=== PATIENT | female | born 1945 | race Caucasian/White ===

== ENCOUNTER 2023-10-19 04:42 | Inpatient (IN) | payer MEDICARE, BC ==
[~2023-10-19] VITALS: Ht 162.6 cm; Wt 88.3 kg
[2023-10-19] VITALS (8 sets, daily range): BP systolic 154–178; BP diastolic 68–89; PULSE 61–74; RESP 14–16; TEMP 98–98.6; O2SAT 94–97
[~2023-10-19 04:42] MED LIST: ASPI-543 PO; CARV25TA55 PO; CLON0.1T PO; CYAN1TAB14 PO; GABA250S7 PO; HYDR25TA88 PO; INSLISPI SC; METF-371 PO; POTA-215 PO; PRAV20TA3 PO; TRAM50TA2 PO
[2023-10-19 07:09] LABS: Urine Bacteria FEW /hpf (None Seen); Urine Blood TRACE /uL (Negative); Urine Clarity Turbid (Clear); Urine Color Colorless (Yellow); Urine Protein, UAD 1+ (Negative); Urine Specific Gravity 1.012 (1.001-1.035); Urine Urobilinogen Normal (Negative); Urine WBC 112 /hpf (0 - 5); Urine pH 5.5 (5.0-9.0)
[2023-10-19 07:38] LABS: Basophils # (auto) 0.1 10 ^3/uL (0-0.2); Basophils % (auto) 0.5 % (0.0-2.0); Eosinophils # (auto) 0.3 10 ^3/uL (0-0.8); Eosinophils % (auto) 2.3 % (0.0-7.0); Hematocrit 38.7 % (36.0-46.0); Hemoglobin 12.9 g/dL (12.2-16.2); Lymphocytes # (auto) 1.3 10 ^3/uL (0.4-5.4); Mean Corpuscular Hemoglobin 30.9 pg (28.0-32.0); Mean Corpuscular Hgb Conc. 33.3 g/dL (32.0-36.0); Mean Corpuscular Volume 92.7 fL (80.0-100.0); Monocytes # (auto) 0.4 10 ^3/uL (0-1.3); Monocytes % (auto) 3.6 % (0.0-12.0); Neutrophils % (auto) 81.6 % (37.0-80.0); Red Blood Cells 4.18 10^6/uL (4.0-5.20); White Blood Cell 11.1 10^3/uL (4.4-10.8)
[2023-10-19 07:39] LABS: Amphetamine Screen, Urine Neg (NEGATIVE); Barbiturate Scree,Urine Neg (NEGATIVE); Benzodiazephine Screen, Urine Neg (NEGATIVE); Cocaine Screen, Urine Neg (NEGATIVE); Opiate Scree,Urine Neg (NEGATIVE); Phencyclidine Screen, Urine Neg (NEGATIVE)
[2023-10-19 07:40] LABS: Cannabinoid Screen, Urine Neg (NEGATIVE)
[2023-10-19] MEDS: SODIUM CHLORIDE 0.9% 500 ML IVB ONE (07:57)
[2023-10-19 07:58] LABS: INR 1.08 (0.9-1.15); Partial Thromboplastin Time 31.6 SEC (24.5-34.5); Prothrombin Time 11.4 sec (9.3-11.8)
[2023-10-19 07:59] LABS: Alanine Aminotransferase 18 U/L (7-40); Albumin 4.1 g/dL (3.2-4.8); Alkaline Phosphatase 122 U/L (46-116); Anion Gap 1 (5-15); Aspartate Aminotransferase 42 U/L (13-40); BUN/Creatinine Ratio 13.7 (10.0-20.0); Blood Urea Nitrogen 36 mg/dL (9-23); Calcium 9.3 mg/dL (8.5-10.1); Carbon Dioxide 36 mmol/L (20-30); Chloride 102 mmol/L (98-107); Glucose 170 mg/dL (74-106); Potassium 3.3 mmol/L (3.5-5.1); Sodium 139 mmol/L (136-145)
[2023-10-19 08:00] LABS: Bilirubin, Total 0.4 mg/dL (0.2-1.0); Total Protein 7.1 g/dL (5.7-8.2)
[2023-10-19] MEDS: SODIUM CHLORIDE 0.9% 1,000 ML IV ONE (08:10)
[2023-10-19] MEDS ORDERED: MORPHINE SULFATE INJ 2 MG/ml SYRG IV PRN (08:45)
[2023-10-19] MEDS ORDERED: NITROGLYCERIN 0.4 MG SL TAB SL PRN (08:45)
[2023-10-19] MEDS ORDERED: DEXTROSE (50%) 50ML SYRG IV PRN (08:45)
[2023-10-19] MEDS ORDERED: ACETAMINOPHEN 325 MG TAB PO PRN (08:45)
[2023-10-19 08:46] LABS: Magnesium 2.8 mg/dL (1.6-2.6)
[2023-10-19] MEDS: POTASSIUM EFFERVESENT TAB 25 MEQ PO ONE (08:57)
[2023-10-19] MEDS: cefTRIAXone 1GM/50ML D5W 50 ML IV ONE (08:57)
[2023-10-19] MEDS: cefTRIAXone 1GM/50ML D5W 50 ML IV SCH (08:58)
[2023-10-19 09:13] LABS: Creatinine, Urine 69.8 mg/dL (30.0-125.0)
[2023-10-19 09:31] LABS: Triglycerides 158 mg/dL (< 150)
[2023-10-19 09:32] LABS: LDL Cholesterol 76 mg/dL (< 100)
[2023-10-19 09:33] LABS: Cholesterol 162 mg/dL (< 200); HDL Cholesterol 53 mg/dL (40-59)
[2023-10-19] MEDS ORDERED: ENOXAPARIN SOD 40 MG/0.4 ML SYRINGE SC SCH (10:00)
[2023-10-19] MEDS: GABAPENTIN 300 MG CAP PO SCH (10:26)
[2023-10-19] MEDS: CARVEDILOL 12.5 MG TAB PO SCH (10:26)
[2023-10-19] MEDS: PRAVASTATIN SODIUM 20 MG TAB PO SCH (10:27)
[2023-10-19] MEDS: POTASSIUM CHL 10 Meq TABLET PO SCH (10:27)
[2023-10-19] MEDS: ASPirin-EC 81 mg tab PO SCH (10:27)
[2023-10-19] MEDS: CYANOCOBALAMIN 500 MCG TAB PO SCH (10:27)
[2023-10-19] MEDS: ENOXAPARIN SOD 30 MG/0.3 ML SYRINGE SC SCH (10:28)
[2023-10-19] MEDS: InsuLIN REG 1unit/0.01ml Soln (100units/ml) SC SCH (11:30)
[2023-10-19] MEDS: ACCU-CHEK COMFORT CURVE STRIP VI SCH (12:24)
[2023-10-19] MEDS: cloNIDine HCL 0.1 MG TAB PO SCH (14:11)
[2023-10-19] MEDS: hydrALAZINE HCL 25 MG TAB PO SCH (14:11)
[2023-10-19] MEDS ORDERED: ALBUTEROL SULF 2.5 MG/0.5ML(0.5%) NEB SOLN NEB PRN (15:30)
[2023-10-19] MEDS ORDERED: LORazepam 2MG/ML-1ML VIAL IV PRN (20:15)
[2023-10-19 20:40] LABS: Free T4 (Free Thyroxine) 0.96 ng/dL (0.89-1.76)
[2023-10-19] MEDS: ACETAMINOPHEN 325 MG TAB PO PRN (22:22)
[2023-10-19] MEDS: traMADol HCL 50 MG TAB PO PRN (23:53)
[2023-10-20] VITALS (10 sets, daily range): BP systolic 148–189; BP diastolic 64–90; PULSE 65–82; RESP 16–18; TEMP 97.7–98.5; O2SAT 94–98
[2023-10-20] MEDS ORDERED: ROPI0.5T26 PO (02:13)
[2023-10-20] MEDS ORDERED: DOCUSATE SOD 100 MG CAP PO PRN (05:30)
[2023-10-20] MEDS: DOCUSATE SOD 100 MG CAP PO ONE (05:52)
[2023-10-20 07:12] LABS: Basophils # (auto) 0.1 10 ^3/uL (0-0.2); Basophils % (auto) 0.6 % (0.0-2.0); Eosinophils # (auto) 0.4 10 ^3/uL (0-0.8); Eosinophils % (auto) 4.8 % (0.0-7.0); Hematocrit 40.1 % (36.0-46.0); Hemoglobin 13.4 g/dL (12.2-16.2); Lymphocytes % (auto) 12.4 % (10.0-50.0); Mean Corpuscular Hemoglobin 30.5 pg (28.0-32.0); Mean Corpuscular Hgb Conc. 33.3 g/dL (32.0-36.0); Mean Corpuscular Volume 91.4 fL (80.0-100.0); Monocytes # (auto) 0.5 10 ^3/uL (0-1.3); Monocytes % (auto) 6.7 % (0.0-12.0); Neutrophils # (auto) 6.2 10 ^3/uL (1.6-8.6); Neutrophils % (auto) 75.5 % (37.0-80.0); Red Blood Cells 4.39 10^6/uL (4.0-5.20); Red Cell Distribution Width 12.9 % (11.8-14.3); White Blood Cell 8.2 10^3/uL (4.4-10.8)
[2023-10-20] MEDS: FUROSEMIDE 20 MG/2 ML VIAL IV SCH (09:18)
[2023-10-20] MEDS ORDERED: UMEC1AER IN (12:54)
[2023-10-20] MEDS ORDERED: NIFE1TAB31 PO (12:54)
[2023-10-20] MEDS ORDERED: MAGN400T40 OR (12:54)
[2023-10-20] MEDS ORDERED: APIX2.5T PO (12:54)
[2023-10-20] MEDS ORDERED: METF-929 PO (12:54)
[2023-10-20] MEDS ORDERED: AZIL40TA3 PO (12:54)
[2023-10-20] MEDS ORDERED: ESCI1TAB37 PO (12:54)
[2023-10-20] MEDS ORDERED: GABA800T97 PO (12:54)
[2023-10-20] MEDS ORDERED: EMPA1TAB PO (12:54)
[2023-10-20] MEDS: cloNIDine HCL 0.1 MG TAB PO PRN (16:31)
[2023-10-20 17:00] LABS: COVID19 ANTIGEN SOFIA FIA NEGATIVE (NEGATIVE)
[2023-10-20 19:24] LABS: Rapid Influenza A Negative (Negative); Rapid Influenza B Negative (Negative)
[2023-10-21] VITALS (8 sets, daily range): BP systolic 113–165; BP diastolic 49–83; PULSE 62–68; RESP 18–19; TEMP 97.9–98.4; O2SAT 96–98
[2023-10-21 06:35] LABS: Alanine Aminotransferase 13 U/L (7-40); Alkaline Phosphatase 97 U/L (46-116); Anion Gap 7 (5-15); BUN/Creatinine Ratio 17.9 (10.0-20.0); Blood Urea Nitrogen 27 mg/dL (9-23); Calcium 9.7 mg/dL (8.7-10.4); Carbon Dioxide 33 mmol/L (20-30); Chloride 96 mmol/L (98-107); Glucose 153 mg/dL (74-106); Potassium 2.6 mmol/L (3.5-5.1); Sodium 136 mmol/L (136-145)
[2023-10-21 06:36] LABS: Albumin 3.7 g/dL (3.2-4.8); Aspartate Aminotransferase 23 U/L (13-40); Bilirubin, Total 0.6 mg/dL (0.2-1.0); Total Protein 6.9 g/dL (5.7-8.2)
[2023-10-21] MEDS: HEPARIN SODIUM (PORCINE) 5000 UNITS/ML 1ML VIAL SC SCH (09:13)
[2023-10-21] MEDS: NIFEdipine ER 30 MG TAB PO SCH (09:24)
[2023-10-21] MEDS ORDERED: POTASSIUM CHL 20MEQ/100ML 100 ML IV SCH (10:30)
[2023-10-21] MEDS ORDERED: POTASSIUM CHL 20 Meq TABLET PO ONE (12:00)
[2023-10-21] MEDS: ONDANSETRON HCL 4 MG/2 ML VIAL IV PRN (12:47)
[2023-10-21] MEDS: POTASSIUM EFFERVESENT TAB 25 MEQ PO SCH ×2 (13:07→18:15)
[2023-10-21] MEDS: hydrALAZINE HCL 25 MG TAB PO SCH (18:21)
[2023-10-22 01:00] VITALS: BP 130/62; PULSE 69; RESP 19; TEMP 95; O2SAT 97
[2023-10-22 04:57] VITALS: BP 128/65; PULSE 60; RESP 18; TEMP 97.8; O2SAT 97
[2023-10-22 06:23] LABS: Basophils # (auto) 0.1 10 ^3/uL (0-0.2); Basophils % (auto) 0.7 % (0.0-2.0); Eosinophils # (auto) 0.4 10 ^3/uL (0-0.8); Eosinophils % (auto) 4.3 % (0.0-7.0); Hematocrit 42.1 % (36.0-46.0); Hemoglobin 14.1 g/dL (12.2-16.2); Lymphocytes # (auto) 1.6 10 ^3/uL (0.4-5.4); Mean Corpuscular Hemoglobin 30.6 pg (28.0-32.0); Mean Corpuscular Hgb Conc. 33.5 g/dL (32.0-36.0); Mean Corpuscular Volume 91.3 fL (80.0-100.0); Monocytes # (auto) 0.8 10 ^3/uL (0-1.3); Monocytes % (auto) 8.6 % (0.0-12.0); Neutrophils # (auto) 6.3 10 ^3/uL (1.6-8.6); Neutrophils % (auto) 69.4 % (37.0-80.0); Red Blood Cells 4.61 10^6/uL (4.0-5.20); White Blood Cell 9.1 10^3/uL (4.4-10.8)
[2023-10-22 06:46] LABS: Alanine Aminotransferase 14 U/L (7-40); Albumin 3.6 g/dL (3.2-4.8); Alkaline Phosphatase 89 U/L (46-116); Anion Gap 1 (5-15); Aspartate Aminotransferase 26 U/L (13-40); Blood Urea Nitrogen 31 mg/dL (9-23); Calcium 9.3 mg/dL (8.7-10.4); Carbon Dioxide 36 mmol/L (20-30); Chloride 96 mmol/L (98-107); Glucose 187 mg/dL (74-106); Potassium 3.4 mmol/L (3.5-5.1); Sodium 133 mmol/L (136-145)
[2023-10-22 06:47] LABS: Bilirubin, Total 0.4 mg/dL (0.2-1.0); Total Protein 6.8 g/dL (5.7-8.2)
[2023-10-22 08:00] VITALS: PULSE 59; O2SAT 97
[2023-10-22] MEDS ORDERED: CIPR-173 PO (09:00)
[2023-10-22 09:02] VITALS: BP 115/51; PULSE 64; RESP 17; TEMP 98; O2SAT 97
[2023-10-22 09:37] LABS: Hepatitis B Surface Antigen Negative (Negative)
[2023-10-22 09:57] VITALS: BP 115/51; PULSE 64; RESP 17; TEMP 98; O2SAT 97
[2023-10-22 09:59] LABS: Hepatitis C Antibody Negative (Negative)
[2023-10-22 11:02] LABS: Folate (Folic Acid) 39.24 ng/mL (>5.38)
[2023-10-22 13:00] VITALS: BP 96/42; PULSE 60; RESP 17; TEMP 98
== END 2023-10-22 16:05 | disposition home or self-care (01) | DRG 871 ==
LOC: EDSEX 04:42 → EDUNIT# 04:42 → ER 04:42 → EDBD 04:42 → OVERFLOW 08:44 → TELE-WESTW 08:44
PROVIDERS: ADMIT Nurse Practitioner Family; ATTEND Family Medicine
DX: A41.9 Sepsis, unspecified organism (principal); G93.41 Metabolic encephalopathy; N17.0 Acute kidney failure with tubular necrosis; I50.43 Acute on chronic combined systolic (congestive) and diastolic (congestive) heart failure; N39.0 Urinary tract infection, site not specified; I13.0 Hypertensive heart and chronic kidney disease with heart failure and stage 1 through stage 4 chronic kidney disease, or unspecified chronic kidney disease; J44.1 Chronic obstructive pulmonary disease with (acute) exacerbation; N18.4 Chronic kidney disease, stage 4 (severe); E87.3 Alkalosis; J96.10 Chronic respiratory failure, unspecified whether with hypoxia or hypercapnia; E11.22 Type 2 diabetes mellitus with diabetic chronic kidney disease; Z20.822 Contact with and (suspected) exposure to COVID-19; E66.01 Morbid (severe) obesity due to excess calories; E86.0 Dehydration; E87.6 Hypokalemia; I16.0 Hypertensive urgency; I27.20 Pulmonary hypertension, unspecified; I48.0 Paroxysmal atrial fibrillation; I25.10 Atherosclerotic heart disease of native coronary artery without angina pectoris; F32.A Depression, unspecified; F17.200 Nicotine dependence, unspecified, uncomplicated; R27.8 Other lack of coordination; G25.3 Myoclonus; E78.5 Hyperlipidemia, unspecified; Z90.710 Acquired absence of both cervix and uterus; Z95.5 Presence of coronary angioplasty implant and graft; Z85.3 Personal history of malignant neoplasm of breast; Z83.3 Family history of diabetes mellitus; Z82.49 Family history of ischemic heart disease and other diseases of the circulatory system; Z79.01 Long term (current) use of anticoagulants; Z90.12 Acquired absence of left breast and nipple; Z68.33 Body mass index [BMI] 33.0-33.9, adult
CPT/HCPCS: 36415; 70450; 70551; 71045; 76775; 80053; 80061; 80307; 81001; 82306; 82570; 82607; 82746; 82962; 83036; 83735; 83880; 83930; 83970; 84100; 84156; 84300; 84439; 84443; 84484; 85025; 85379; 85610; 85730; 86803; 87040; 87086; 87340; 87426; 87804; 93005; 93306; 93886; 97116; 97163; 97530; G0378; J1815; J2405

== ENCOUNTER 2023-12-15 21:57 | Emergency (ER) | payer MEDICARE, BC ==
[~2023-12-15] VITALS: Ht 157.5 cm; Wt 85.9 kg
[~2023-12-15 21:57] MED LIST changes: +APIX2.5T PO; +AZIL40TA3 PO; +CIPR-173 PO; +EMPA1TAB PO; +ESCI1TAB37 PO; +GABA800T97 PO; +MAGN400T40 OR; +METF-929 PO; +NIFE1TAB31 PO; +ROPI0.5T26 PO; +UMEC1AER IN
[2023-12-15 22:05] VITALS: BP_DIAS 79
[2023-12-16 00:25] VITALS: BP_SYST 58
[2023-12-16] MEDS: ACETAMINOPHEN 500 MG TAB PO ONE (00:25)
[2023-12-16 00:30] VITALS: PULSE 78; RESP 20; O2SAT 94
[2023-12-16 01:53] VITALS: TEMP 98.7
== END 2023-12-16 01:55 | disposition home or self-care (01) ==
LOC: ER 21:57 → EDBD 21:57 → ER 12-16 01:53
DX: S09.90XA Unspecified injury of head, initial encounter (principal); R53.1 Weakness; I25.10 Atherosclerotic heart disease of native coronary artery without angina pectoris; I11.0 Hypertensive heart disease with heart failure; I50.9 Heart failure, unspecified; F32.A Depression, unspecified; E66.01 Morbid (severe) obesity due to excess calories; Z68.34 Body mass index [BMI] 34.0-34.9, adult; Z90.710 Acquired absence of both cervix and uterus; Z79.899 Other long term (current) drug therapy; Z98.61 Coronary angioplasty status; W18.30XA Fall on same level, unspecified, initial encounter; Y93.89 Activity, other specified; Y92.89 Other specified places as the place of occurrence of the external cause; Y99.8 Other external cause status
CPT/HCPCS: 70450; 72125; 93005

== ENCOUNTER 2025-03-29 01:13 | Inpatient (IN) | payer MEDICARE, BC ==
[~2025-03-29] VITALS: Ht 157.5 cm; Wt 89.7 kg
[2025-03-29] VITALS (11 sets, daily range): BP systolic 150–180; BP diastolic 83–89; PULSE 68–91; RESP 16–32; TEMP 98–99.2; O2SAT 93–97
[~2025-03-29 01:13] MED LIST changes: +ALPR0.255 PO; +ANAS1TAB7 PO; +CARV12.544 PO; +FINE20TA PO; +FLUT1AER3 INH; +FURO40TA4 PO; +HYDR-3682 PO; +HYDR50TA47 PO; +LIDO1.8P EXT; +LOSA-534 PO; -MAGN400T40 OR; +MAGN400T40 PO; +PANT40TA57 PO; +POTA-228 PO; +[UNRECOGNIZED DRUG - CODE] PO
--- NOTE | 2025-03-29 01:27 | ED.PDOC ---
SOB-HPI HPI Comments HPI: 79-year-old female who came to ER via EMS for shortness of breath. Patient has recently discharged 3 days ago for pneumonia. Family members noted patient has been short of breath, weak and lethargic. Was saturating at 81% at 8 lpm on scene, and with a blood sugar of 39. 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 Past Medical History: Past Surgical History: REVIEW OF SYSTEMS: CONSTITUTIONAL: Denies acute: fever, diaphoresis, chills, HEAD: Denies acute: headache, photophobia Eyes: Denies acute: Double vision, vision loss, eye pain, eye discharge. EARS: Denies acute: tinnitus, hearing loss, ear discharge, ear pain, THROAT: Denies acute: sore throat, swelling, difficulty swallowing , pain with swallowing, change in voice. NECK: Denies acute: neck pain, neck swelling, stiff neck. HEART: Denies acute : chest pain, palpitations, LUNGS: Denies acute: wheezing, cough, hemoptysis ABDOMEN: Denies acute: abdominal pain, Nausea, Vomiting, diarrhea, melena , hematemesis, hematochezia SKIN: Denies acute: rash, redness, lesions, itchiness. EXTREMITIES: Denies acute: calf pain, numbness, tingling, weakness, denies pain in extremity. Denies acute: Low back pain. Neuro: Denies acute: focal neurological deficit, motor or sensory focal neurological deficit, tremors, seizure like activity, confusion, dizziness, change in mental status, loss of bowel or bladder function, cauda equina like symptoms. : Denies acute: dysuria, hematuria, flank pain, increase in urinary frequency. PSYCH: Denies acute: hallucination, suicidal ideation, homicidal ideation. FEMALE: Denies acute: abnormal vaginal bleeding, foul odor, unusual discharge. PHYSICAL EXAM: General: ---mild-----acute distress, awake and alert. Head: normocephalic, atraumatic. Neck: supple, trachea is midline, no swelling. Throat: Normal phonation. Eyes:, no erythema, no purulent discharge, no proptosis, no icterus. Heart: regular rate, regular rhythm, no significant murmur appreciated. Lungs: no apparent respiratory distress, Able to speak in full sentences. No wheezing, no rhonchi, no crackles. No stridors Clear to auscultation bilaterally. Abdomen: non tender to palpation, non distended, soft, no guarding, no rebound, + bowel sounds. Obese Neuro: Awake, Alert, oriented to name, self, situation, follows commands Skin: no petechia, no purpura, no cyanosis, non-pale, not jaundice. Lower extremities: --1/4 bilateral - Pitting edema no deformity, no focal swelling, no calf TTP. Makes eye contact. moves all four extremities. Face: no apparent facial droop. No nuchal rigidity, Kernig's sign, Brudzinski's sign, no meningeal signs. ED COURSE: DISCLAIMER: This medical document was created using an electronic medical record system with voice recognition software and computerized dictation system. Although this document has been carefully reviewed, there might still be some phonetic and typographical errors. Occasional wrong-word or "sound-alike" substitutions may have occurred due to the inherent limitations of voice recognition software. These areas are purely typographical due to imperfections of the software programs and do not reflect any compromise in the patient's medical care. Please read the chart carefully and recognize, using context, where these substitutions have occurred. Chief Complaint: Shortness of breath Time Seen by MD: 01:23 Primary Care Provider: GEMINI Hale notes: Health Program Analyst Notes, Allergies Information Source: Patient, Emergency Med Personnel Mode of Arrival: EMS Past Medical History PAST MEDICAL HISTORY: CAD, Cancer (breast), CHF, CKF, Depression, DM, HTN Surgical History: Hysterectomy, PTCA Surgical History (Other): Left mastectomy [employer]EST [employer]TER History: No Pertinent [employer] History Family History Family History: No family hx of DM, No family hx of HTN Social History Smoker: Non-Smoker Alcohol: Rarely Drugs: Denies Drug Use Lives In: Home EKG EKG : Pulse Rate (adult): 70 Cardiac Rhythm: NSR Was a procedure done? Was a procedure done?: No Differential Dx Differential Diagnosis: Other (DDx include ACS, unstable angina, anxiety, PE, pneumothroax, neoplasm, cardiac ischemia, COPD, asthma, CHF, pleural effusion, tobacco abuse, pneumonia, hypoxia, hypercapnia, anemia., infection/sepsis., pulmonary edema. Asthma, Cardiac tamponade, infection.) X-Ray, Labs, Meds, VS Vital Signs Date Time Temp Pulse Resp B/P (MAP) Pulse Ox O2 Delivery O2 Flow Rate FiO2 03/29/25 01:39 117/55 03/29/25 01:32 68 22 97 Non-Rebreather 15 N/A 03/29/25 01:32 98.1 68 22 117/55 (75) 97 98.1 03/29/25 01:28 70 03/29/25 01:25 70 03/29/25 01:22 97.9 70 28 117/55 97 97.9 Lab Test 03/29/25 02:15 03/29/25 02:12 03/29/25 01:22 03/29/25 01:12 Range/Units POC Glucose 92 70-106 mg/dl Troponin I High Sensitivity 12 12 </=34 ng/L Lactic Acid Level 0.4 0.4-2.0 mmol/L White Blood Count 8.6 4.4-10.8 10^3/uL Red Blood Count 3.13 L 4.0-5.20 10^6/uL Hemoglobin 8.9 L 12.2-16.2 g/dL Hematocrit 27.7 L 36.0-46.0 % Mean Corpuscular Volume 88.4 80.0-100.0 fL Mean Corpuscular Hemoglobin 28.4 28.0-32.0 pg Mean Corpuscular Hemoglobin Concent 32.1 32.0-36.0 g/dL Red Cell Distribution Width 14.0 11.8-14.3 % Platelet Count 164 140-450 10^3/uL Mean Platelet Volume 8.1 6.9-10.8 fL Neutrophils (%) (Auto) 73.8 37.0-80.0 % Lymphocytes (%) (Auto) 13.9 10.0-50.0 % Monocytes (%) (Auto) 9.0 0.0-12.0 % Eosinophils (%) (Auto) 2.7 0.0-7.0 % Basophils (%) (Auto) 0.6 0.0-2.0 % Neutrophils # (Auto) 6.3 1.6-8.6 10 ^3/uL Lymphocytes # (Auto) 1.2 0.4-5.4 10 ^3/uL Monocytes # (Auto) 0.8 0-1.3 10 ^3/uL Eosinophils # (Auto) 0.2 0-0.8 10 ^3/uL Basophils # (Auto) 0.1 0-0.2 10 ^3/uL Nucleated Red Blood Cells 0.0 % Sodium Level 134 L 136-145 mmol/L Potassium Level 5.0 3.5-5.1 mmol/L Chloride Level 96 L 98-107 mmol/L Carbon Dioxide Level 33 H 20-31 mmol/L Anion Gap 5 5-15 Blood Urea Nitrogen 46 H 9-23 mg/dL Creatinine 1.94 H 0.550-1.02 mg/dL Glomerular Filtration Rate Calc 26 >90 mL/min BUN/Creatinine Ratio 23.7 H 10.0-20.0 Serum Glucose 197 H 74-106 mg/dL Hemoglobin A1c 9.5 H <5.7 % A1C Calcium Level 8.2 L 8.7-10.4 mg/dL Total Bilirubin 0.3 0.2-1.0 mg/dL Aspartate Amino Transferase (AST) 13 13-40 U/L Alanine Aminotransferase (ALT) < 9 7-40 U/L Alkaline Phosphatase 141 H 46-116 U/L B-Type Natriuretic Peptide 996.88 0-100 pg/mL Total Protein 6.7 5.7-8.2 g/dL Albumin 3.1 L 3.2-4.8 g/dL Current Medications Medications (Trade) Dose Ordered Sig/Cayla Route Start Time Stop Time Status Last Admin Furosemide (Lasix Injection) 60 mg ONCE ONCE IV 03/29/25 01:30 03/29/25 01:31 DC 03/29/25 01:[address] [address] Ph: [phone] DIAGNOSTIC IMAGING Diagnostic Imaging Report : [id number] Signed PATIENT: ALEX ORTIZ ACCT: [id number] UNIT: [id number] : 1945 LOC: ER ROOM / BED: / AGE / SEX: 79 / F ADM STATUS: REG ER SERVICE 9 ORDERING PHYSICIAN: KRIS ALVA DO PROCEDURE(s): CXRP - CHEST PORTABLE REASON: SOB ORDER NUMBER(s): [id number], ACCESSION NUMBER(s): [id number] CHEST RADIOGRAPH Indication: SOB Technique: Single frontal view of the chest was obtained COMPARISON: XY CHEST PORTABLE on DOS: 10/19/23 FINDINGS: Lines and Tubes: None Lungs: Diffuse increased prominence of the pulmonary vasculature and small right pleural effusion. No pneumothorax. Cardiomediastinal contours: Cardiomegaly. Bones: Unremarkable IMPRESSION: 1. Cardiomegaly with mild pulmonary edema and small right pleural effusion. ATED BY: ASCENCION CUTLER MD DICTATED DATE/TIME: 03/29/25224 SIGNED BY: ASCENCION CUTLER MD SIGNED DATE/TIME: 03/29/25224 CC: Time of 1ST Reevaluation: 01:22 Reevaluation 1ST: Unchanged Patient Education/Counseling: Diagnosis, Treatment Family Education/Counseling: Other Comments MDM: patient presented with the above HPI.------workup was initiated. patient was found with the above mentioned diagnosis. Patient had an hypoglycemic episode in the 30s. Patient was D50 was initiated in route by EMS. Patient was placed on a rebreather mask and her oxygen i mproves. the following medications were ordered: please refer to order lists of meds and tests obtained by myself Dr. Alva. Patient ED course and VS have been stabilized. Patient has been reassessed in the ED and remained in a stable condition. Pertinent incidental findings were discussed with the patient and/or family. Patient/family voices understanding and is agreeable with plan. Patient has been observed in the ED adequate length of time to insure improvement/stability. Escalation of care considered: Consideration of escalation to observation or admission Patient was given Lasix given her CHF exacerbation presentation today on chest x-ray and elevated BNP. Patient was ADMITTED to the medicine team for further evaluation and treatment of their presentation. All the reports of any imaging studies that were ordered by myself were reviewed by myself. SEPSIS Sepsis Screen Physician Orders Rejected Items Clerk (03/29/25 ) Chest Portable (03/29/25 01:20) Electrocardigram (03/29/25 01:20) Urinalysis (03/29/25 01:20) Blood Culture (03/29/25 01:23) Insert/Manage Urinary Catheter QSHIFT (03/29/25 02:06) Complete Blood Count (03/29/25 04:00) Comprehensive Metabolic Panel (03/29/25 04:00) Furosemide Injection (Lasix Injection) (03/29/25 10:00) Carvedilol Tablet (Coreg Tablet) (03/29/25 10:00) Hydralazine Injection (Apresoline Inject (03/29/25 02:15) Consistent Carb(Ccho)Diabetes (03/29/25 Breakfast) Glucose Blood (Accu-Chek Comfort Curve T (03/29/25 07:00) Insulin R (Human) (Insulin R) (03/29/25 22:00) Insulin R (Human) (Insulin R) (03/29/25 07:00) Dextrose 50% Syringe (03/29/25 02:15) Apixaban (Eliquis) (03/29/25 10:00) Allergies (03/29/25 02:14) Code Status (03/29/25 02:14) Sodium Chloride Lock (Saline Lock Ns) (03/29/25 06:00) Oxygen Per Hour (03/29/25 02:14) Hydrocodone-Acet 5/325mg Tab ([place] 5/32 (03/29/25 02:15) Ondansetron Hcl (Zofran) (03/29/25 02:15) Docusate Sodium Capsule (Colace Capsule) (03/29/25 02:15) Fall Risk Precautions In Place QSHIFT (03/29/25 02:14) Complete Blood Count (03/30/25 04:00) Comprehensive Metabolic Panel (03/30/25 04:00) Echo 2d Mode Cardiac Dop (03/29/25 02:14) Condition: Serious (03/29/25 02:14) Acetaminophen Tablet (Tylenol Tablet) (03/29/25 02:15) Maintain Bed Rest (03/29/25 02:14) Sequential Compression Device (03/29/25 ) Vital Signs Date Time Temp Pulse Resp B/P (MAP) Pulse Ox O2 Delivery O2 Flow Rate FiO2 03/29/25 01:39 117/55 03/29/25 01:32 68 22 97 Non-Rebreather 15 N/A 03/29/25 01:32 98.1 68 22 117/55 (75) 97 98.1 03/29/25 01:28 70 03/29/25 01:25 70 03/29/25 01:22 97.9 70 28 117/55 97 97.9 Laboratory Tests Test 03/29/25 01:12 03/29/25 01:22 White Blood Count 8.6 10^3/uL (4.4-10.8) Lactic Acid Level 0.4 mmol/L (0.4-2.0) Medications Medications Dose Ordered Sig/Cayla Route Start Time Stop Time Status Last Admin Dose Admin Furosemide 60 mg ONCE ONCE IV 03/29/25 01:30 03/29/25 01:31 DC 03/29/25 01:39 Departure 1 Departure Time of Disposition: 01:57 Impression: Primary Impression: Acute respiratory distress Additional Impressions: Hypoglycemia CHF exacerbation Hypoxemia Anemia Disposition: 09 ADMITTED INPATIENT Admit to: Tele Condition: Guarded Discharged With: Self Critical Care Note Critical Care Time?: Yes (45 min-critical care time only) Critical care comment: Shortness of breath Stability Stability form required: No Heart Score Heart Score: Heart Score Response (Comments) Value History Moderate Suspicious 1 EKG Normal 0 Age >65 2 Risk Factors >3 or Hx ASHD 2 Troponin Normal limit 0 Total 5 I personally scribed for KRIS ALVA DO ([email or web address]) on 03/29/25 at 01:27. Electronically submitted by Erasmo Jones ([facility]). I personally scribed for KRIS ALVA DO ([email or web address]) on 03/29/25 at 01:28. Electronically submitted by Erasmo Jones ([facility]). I personally scribed for KRIS ALVA DO ([email or web address]) on 03/29/25 at 03:11. Electronically submitted by Erasmo Jones ([facility]). KRIS ALVA DO Mar 29, 2025 01:27
[2025-03-29] MEDS: FUROSEMIDE 100 MG/10ML VIAL IV ONE (01:39)
[2025-03-29 01:42] LABS: Hematocrit 27.7 % (36.0-46.0); Hemoglobin 8.9 g/dL (12.2-16.2); Mean Corpuscular Hemoglobin 28.4 pg (28.0-32.0); Mean Corpuscular Volume 88.4 fL (80.0-100.0); Nucleated Red Blood Cells % 0.0 %
[2025-03-29 01:52] LABS: Anion Gap 5 (5-15); BUN/Creatinine Ratio 23.7 (10.0-20.0); Potassium 5.0 mmol/L (3.5-5.1); Total Protein 6.7 g/dL (5.7-8.2)
[2025-03-29 02:01] LABS: Alanine Aminotransferase < 9 U/L (7-40); Albumin 3.1 g/dL (3.2-4.8); Alkaline Phosphatase 141 U/L (46-116); Bilirubin, Total 0.3 mg/dL (0.2-1.0); Blood Urea Nitrogen 46 mg/dL (9-23); Calcium 8.2 mg/dL (8.7-10.4); Carbon Dioxide 33 mmol/L (20-31); Chloride 96 mmol/L (98-107); Glucose 197 mg/dL (74-106); Sodium 134 mmol/L (136-145)
[2025-03-29] MEDS ORDERED: DEXTROSE (50%) 50ML SYRG IV PRN (02:15)
[2025-03-29] MEDS ORDERED: ACETAMINOPHEN 325 MG TAB PO PRN (02:15)
--- NOTE | 2025-03-29 02:28 | DVH ---
CHEST RADIOGRAPH Indication: SOB Technique: Single frontal view of the chest was obtained COMPARISON: XY CHEST PORTABLE on DOS: 10/19/23 FINDINGS: Lines and Tubes: None Lungs: Diffuse increased prominence of the pulmonary vasculature and small right pleural effusion. No pneumothorax. Cardiomediastinal contours: Cardiomegaly. Bones: Unremarkable IMPRESSION: 1. Cardiomegaly with mild pulmonary edema and small right pleural effusion.
[2025-03-29 03:39] LABS: Hematocrit 23.4 % (36.0-46.0); Hemoglobin 7.5 g/dL (12.2-16.2); Mean Corpuscular Hemoglobin 28.7 pg (28.0-32.0); Mean Corpuscular Volume 89.9 fL (80.0-100.0); Nucleated Red Blood Cells % 0.1 %
[2025-03-29 03:54] LABS: Alkaline Phosphatase 113 U/L (46-116); Anion Gap 7 (5-15); Carbon Dioxide 27 mmol/L (20-31); Chloride 106 mmol/L (98-107); Potassium 4.2 mmol/L (3.5-5.1); Sodium 140 mmol/L (136-145)
[2025-03-29 03:55] LABS: BUN/Creatinine Ratio 23.3 (10.0-20.0)
[2025-03-29 03:57] LABS: Alanine Aminotransferase < 9 U/L (7-40); Albumin 2.5 g/dL (3.2-4.8); Bilirubin, Total 0.2 mg/dL (0.2-1.0); Blood Urea Nitrogen 34 mg/dL (9-23); Calcium 6.5 mg/dL (8.7-10.4); Glucose 58 mg/dL (74-106); Total Protein 5.4 g/dL (5.7-8.2)
--- NOTE | 2025-03-29 04:28 | DVHHP2 ---
History of Present Illness Reason for Visit: Acute exacerbation of congestive heart failure History of Present Illness The patient is a 79-year-old female with past medical history of left mastectomy secondary to breast cancer March 2023, DM, hypertension, CHF, depression, Coronary artery disease, and chronic kidney failure who presented to [facility] ED with complaint of shortness of breaths. reports that patient has recently discharged from [facility] 3 days ago for pneumonia, however, patient was noted to be in respiratory distress, O2 s aturation 81%, weakness, lethargic, blood sugar of 39 and was given D50 EN route to the ED for further evaluation. Patient was seen and evaluated in the ED, laboratory data shows WBC 8.6, hemoglobin 8.9, hematocrit 27.7, platelets 164, sodium 134, potassium 5.0, BUN 48, creatinine 1.94, glucose 197, calcium 8.2, alkaline phos 141, BNP 996.88, troponin 12, albumin 3.1, blood pressure 117/55, heart rate 68, temperature 98.1 F, O2 saturation 97% on non-rebreather. Chest x-ray revealing cardiomegaly with mild pulmonary edema and small right pleural effusion. Patient was started on IV Lasix, please see medication orders section in the computer. On my assessment, at bedside, patient denies chest pain, no dizziness, headache, diaphoresis, currently on non-rebreather, no diarrhea, nausea, vomiting, fever, no chills. Patient was admitted for further evaluation and medical management. Past Medical History Hypertension, Diabetes, DM, HTN, Chronic kidney failure, CHF, Depression, Coronary artery disease, Breast cancer Past Surgical History Coronary stents, Left mastectomy 2022, PTCA Family History Reviewed, noncontributory to the management of this case. Past Social History The patient lives at home, denies smoking, alcohol or illicit drugs abuse. Review of Systems Constitutional: Yes: Weakness, Other (Lethargic); No: Fever, Chills, Sweats, Malaise Eyes: No: Pain, Vision change, Conjunctivae inflammation, Eyelid inflammation, Other, Redness ENT: No: Ear pain, Ear discharge, Nose pain, Nose discharge, Nose congestion, Mouth pain, Mouth swelling, Throat pain, Throat swelling, Other Respiratory: Shortness of breath, Other (SOB at rest); No: Cough, Dry, SOB with excertion, Wheezing, Hemoptysis, Pleuritic Pain, Sputum, Wheezing Cardiovascular: No: Chest Pain, Palpitations, Orthopnea, Paroxysmal Noc. Dysp millie, Edema, Lt Headedness, Other Gastrointestinal: No: Nausea, Vomiting, Abdominal Pain, Diarrhea, Constipation, Melena, Hematochezia, Other Genitourinary: No Dysuria, No Frequency, No Incontinence, No Hematuria, No Retention, No Other Musculoskeletal: No: other, neck pain, shoulder pain, arm pain, back pain, hand pain, leg pain, foot pain Skin: No: Rash, Lesions, Jaundice, Bruising, Other Neurological: No: Weakness, Numbness, Incoordination, Change in speech, Confusion, Seizures, Other Allergies: Coded Allergies: NO KNOWN ALLERGIES (Unverified , 01/28/17) Medications Current Medications Medications Dose Ordered Sig/Cayla Route Start Time Stop Time Status Last Admin Dose Admin Furosemide 40 mg DAILY IV 03/29/25 10:00 Carvedilol 3.125 mg Q12HR PO 03/29/25 10:00 Hydralazine HCl 10 mg Q6HP PRN IV 03/29/25 02:15 Diagnostic Test (Pha) 1 strip ACHS 03/29/25 07:00 Insulin Human Regular HS SC 03/29/25 22:00 Insulin Human Regular AC SC 03/29/25 07:00 Dextrose 50 ml UD PRN IV 03/29/25 02:15 Apixaban 2.5 mg BID PO 03/29/25 10:00 Sodium Chloride 10 ml Q8HR IV 03/29/25 06:00 Acetaminophen/ Hydrocodone Bitart 1 tab Q4HP PRN PO 03/29/25 02:15 Ondansetron HCl 4 mg Q4HP PRN IV 03/29/25 02:15 Docusate Sodium 100 mg BIDPRN PRN PO 03/29/25 02:15 Acetaminophen 650 mg Q6HP PRN PO 03/29/25 02:15 Exam Vital Signs Vital Signs Date Time Temp Pulse Resp B/P (MAP) Pulse Ox O2 Delivery O2 Flow Rate FiO2 03/29/25 01:39 117/55 03/29/25 01:32 68 22 97 Non-Rebreather 15 N/A 03/29/25 01:32 98.1 98.1 General Appearance: Alert, Oriented X3, Cooperative, No acute distress HEENT: Atraumatic, PERRLA, EOMI, Mucous membr. moist/pink Respiratory: Normal air movement, Other (Diminished breath sounds) Cardiovascular: Regular rate, Normal S1, Normal S2, No murmurs Abdominal: Normal bowel sounds, Soft, No tenderness, No hepatospenomegaly, No masses Extremities: No clubbing, No cyanosis, No edema, Normal pulses, No tenderness/swelling Skin: No rashes, No significant lesion Neuro: Normal speech, Normal tone, Sensation intact, Cranial nerves 3-12 NL, Reflexes 2+, Other (Generalized weakness) Psych/Mental Status: Mental status NL, Mood NL Labs/Xrays Labs Test 03/29/25 03:20 03/29/25 02:15 03/29/25 02:12 03/29/25 01:22 Range/Units White Blood Count 6.9 4.4-10.8 10^3/uL Red Blood Count 2.61 L 4.0-5.20 10^6/uL Hemoglobin 7.5 #L 12.2-16.2 g/dL Hematocrit 23.4 #L 36.0-46.0 % Mean Corpuscular Volume 89.9 80.0-100.0 fL Mean Corpuscular Hemoglobin 28.7 28.0-32.0 pg Mean Corpuscular Hemoglobin Concent 32.0 32.0-36.0 g/dL Red Cell Distribution Width 13.8 11.8-14.3 % Platelet Count 132 L 140-450 10^3/uL Mean Platelet Volume 8.2 6.9-10.8 fL Neutrophils (%) (Auto) 74.1 37.0-80.0 % Lymphocytes (%) (Auto) 13.1 10.0-50.0 % Monocytes (%) (Auto) 8.9 0.0-12.0 % Eosinophils (%) (Auto) 3.1 0.0-7.0 % Basophils (%) (Auto) 0.8 0.0-2.0 % Neutrophils # (Auto) 5.1 1.6-8.6 10 ^3/uL Lymphocytes # (Auto) 0.9 0.4-5.4 10 ^3/uL Monocytes # (Auto) 0.6 0-1.3 10 ^3/uL Eosinophils # (Auto) 0.2 0-0.8 10 ^3/uL Basophils # (Auto) 0.1 0-0.2 10 ^3/uL Nucleated Red Blood Cells 0.1 % Sodium Level 140 # 136-145 mmol/L Potassium Level 4.2 3.5-5.1 mmol/L Chloride Level 106 # 98-107 mmol/L Carbon Dioxide Level 27 20-31 mmol/L Anion Gap 7 5-15 Blood Urea Nitrogen 34 #H 9-23 mg/dL Creatinine 1.46 H 0.550-1.02 mg/dL Glomerular Filtration Rate Calc 37 >90 mL/min BUN/Creatinine Ratio 23.3 H 10.0-20.0 Serum Glucose 58 L 74-106 mg/dL Calcium Level 6.5 L 8.7-10.4 mg/dL Total Bilirubin 0.2 0.2-1.0 mg/dL Aspartate Amino Transferase (AST) 14 13-40 U/L Alanine Aminotransferase (ALT) < 9 7-40 U/L Alkaline Phosphatase 113 46-116 U/L Total Protein 5.4 L 5.7-8.2 g/dL Albumin 2.5 L 3.2-4.8 g/dL POC Glucose 92 70-106 mg/dl Troponin I High Sensitivity 12 </=34 ng/L Lactic Acid Level 0.4 0.4-2.0 mmol/L Test 03/29/25 01:12 Range/Units Hemoglobin A1c 9.5 H <5.7 % A1C B-Type Natriuretic Peptide 996.88 0-100 pg/mL PATIENT: ALEX ORTIZ ACCT: [id number] UNIT: [id number] : 1945 LOC: ER ROOM / BED: / AGE / SEX: 79 / F ADM STATUS: REG ER SERVICE 0120 ORDERING PHYSICIAN: KRIS ALVA DO PROCEDURE(s): CXRP - CHEST PORTABLE REASON: SOB ORDER NUMBER(s): [id number], ACCESSION NUMBER(s): [id number] CHEST RADIOGRAPH Indication: SOB Technique: Single frontal view of the chest was obtained COMPARISON: XY CHEST PORTABLE on DOS: 10/19/23 FINDINGS: Lines and Tubes: None Lungs: Diffuse increased prominence of the pulmonary vasculature and small right pleural effusion. No pneumothorax. Cardiomediastinal contours: Cardiomegaly. Bones: Unremarkable IMPRESSION: 1. Cardiomegaly with mild pulmonary edema and small right pleural effusion. SEPSIS Sepsis Screen Date sepsis recognized/suspect: Mar 29, 2025 Time Sepsis recognized/suspect: 135 Recent Procedure: No On Antibiotic Therapy: No Respiratory Rate >20: No Heart Rate >90: No Temp<36 C (96.8 F) or >38.3 C: No SBP <90 or MAP <65 mmHG: No New Acute Mental Status Change: No Is the patient on CPAP, BIPAP,: No Physician Orders [employer]ice (03/29/25 ) Chest Portable (03/29/25 01:20) Electrocardigram (03/29/25 01:20) Urinalysis (03/29/25 01:20) Blood Culture (03/29/25 01:23) Insert/Manage Urinary Catheter QSHIFT (03/29/25 02:06) Furosemide Injection (Lasix Injection) (03/29/25 10:00) Carvedilol Tablet (Coreg Tablet) (03/29/25 10:00) Hydralazine Injection (Apresoline Inject (03/29/25 02:15) Consistent Carb(Ccho)Diabetes (03/29/25 Breakfast) Glucose Blood (Accu-Chek Comfort Curve T (03/29/25 07:00) Insulin R (Human) (Insulin R) (03/29/25 22:00) Insulin R (Human) (Insulin R) (03/29/25 07:00) Dextrose 50% Syringe (03/29/25 02:15) Apixaban (Eliquis) (03/29/25 10:00) Allergies (03/29/25 02:14) Code Status (03/29/25 02:14) Sodium Chloride Lock (Saline Lock Ns) (03/29/25 06:00) Oxygen Per Hour (03/29/25 02:14) Hydrocodone-Acet 5/325mg Tab ([place] 5/32 (03/29/25 02:15) Ondansetron Hcl (Zofran) (03/29/25 02:15) Docusate Sodium Capsule (Colace Capsule) (03/29/25 02:15) Fall Risk Precautions In Place QSHIFT (03/29/25 02:14) Complete Blood Count (03/30/25 04:00) Comprehensive Metabolic Panel (03/30/25 04:00) Echo 2d Mode Cardiac Dop (03/29/25 02:14) Condition: Serious (03/29/25 02:14) Acetaminophen Tablet (Tylenol Tablet) (03/29/25 02:15) Maintain Bed Rest (03/29/25 02:14) Sequential Compression Device (03/29/25 ) Vital Signs Date Time Temp Pulse Resp B/P (MAP) Pulse Ox O2 Delivery O2 Flow Rate FiO2 03/29/25 01:39 117/55 03/29/25 01:32 68 22 97 Non-Rebreather 15 N/A 03/29/25 01:32 98.1 68 22 117/55 (75) 97 98.1 03/29/25 01:28 70 03/29/25 01:25 70 03/29/25 01:22 97.9 70 28 117/55 97 97.9 Laboratory Tests Test 03/29/25 01:12 03/29/25 01:22 03/29/25 03:20 White Blood Count 8.6 10^3/uL (4.4-10.8) 6.9 10^3/uL (4.4-10.8) Lactic Acid Level 0.4 mmol/L (0.4-2.0) Medications Medications Dose Ordered Sig/Cayla Route Start Time Stop Time Status Last Admin Dose Admin Furosemide 60 mg ONCE ONCE IV 03/29/25 01:30 03/29/25 01:31 DC 03/29/25 01:39 60 MG Assessment/Plan Assessment/Plan Acute respiratory distress Anemia, unspecified Hypoglycemia Acute on chronic renal failure Generalized weakness Acute exacerbation of congestive heart failure Acute respiratory failure with hypoxia Plan 1. Admit to telemetry unit 2. Breathing treatment 3. Pain control management 4. Management of fluids and electrolytes 5. Consultation for hospitalist 6. Diagnostic tests chest x-ray 7. DVT prophylaxis-on SCDs 8. Repeat labs CBC, CMP in a.m. 9. Continue with current medical management 10. Treatment plan discussed with patient/ and RN. Patient/ verbalized understanding. Plan discussed with: Patient, Spouse (), Other (RN) My Orders Orders - NIDIA MCCONNELL DNP Procedure Category Date Status Time Furosemide Injection PHA 03/29/25 In Process (Lasix Injection) 10:00 Carvedilol Tablet PHA 03/29/25 In Process (Coreg Tablet) 10:00 Hydralazine Injection PHA 03/29/25 In Process (Apresoline Inject 02:15 Consistent DIET 03/29/25 Transmitted Carb(Ccho)Diabetes Breakfast Glucose Blood PHA 03/29/25 In Process (Accu-Chek Comfort 07:00 Insulin R (Human) PHA 03/29/25 In Process (Insulin R) 22:00 Insulin R (Human) PHA 03/29/25 In Process (Insulin R) 07:00 Dextrose 50% Syringe PHA 03/29/25 In Process 02:15 Apixaban (Eliquis) PHA 03/29/25 In Process 10:00 Allergies ROCHELLE 03/29/25 In Process 02:14 Code Status CODE 03/29/25 Transmitted 02:14 Sodium Chloride Lock PHA 03/29/25 In Process (Saline Lock Ns) 06:00 Oxygen Per Hour RT 03/29/25 Transmitted 02:14 Hydrocodone-Acet PHA 03/29/25 In Process 5/325mg Tab (Ionia 02:15 Ondansetron Hcl PHA 03/29/25 In Process (Zofran) 02:15 Docusate Sodium PHA 03/29/25 In Process Capsule (Colace 02:15 Fall Risk Precautions ROCHELLE 03/29/[address] 02:14 Complete Blood Count LAB 03/30/25 Verified 04:00 Comprehensive LAB 03/30/25 Verified Metabolic Panel 04:00 Echo 2d Mode Cardiac US 03/29/25 Logged DOP 02:14 Condition: Serious ROCHELLE 03/29/25 In Process 02:14 Acetaminophen Tablet PHA 03/29/25 In Process (Tylenol Tablet) 02:15 Maintain Bed Rest ROCHELLE 03/29/25 In Process 02:14 Sequential ROCHELLE 03/29/25 In Process Compression Device Problem List: (1) Acute respiratory distress (2) Anemia, unspecified (3) Hypoglycemia (4) Acute on chronic renal failure (5) Generalized weakness (6) Acute exacerbation of congestive heart failure (7) Acute respiratory failure with hypoxia Date of Service: Mar 29, 2025 Billing Provider: NIDIA MCCONNELL DNP Common Visit Codes: [id number] INP/OBS CARE (HIGH) NIDIA MCCONNELL DNP Mar 29, 2025 04:27
[2025-03-29] MEDS ORDERED: MORPHINE SULFATE INJ 2 MG/ml SYRG IV PRN (04:30)
[2025-03-29] MEDS ORDERED: NITROGLYCERIN 0.4 MG SL TAB SL PRN (04:30)
[2025-03-29 04:56] LABS: Urine Budding Yeast LOADED /hpf (None Seen); Urine Protein, UAD 1+ (Negative); Urine WBC Clumps PRESENT /hpf (None Seen)
[2025-03-29] MEDS: SODIUM CHLOR 0.9% PF (SALINE LOCK) 10ML VIAL/SYR IV SCH (06:08)
[2025-03-29] MEDS: InsuLIN REG 1unit/0.01ml Soln (100units/ml) SC SCH ×2 (06:10→22:44)
[2025-03-29] MEDS: ACCU-CHEK COMFORT CURVE STRIP VI SCH (06:10)
[2025-03-29] MEDS ORDERED: VANCOMYCIN PER PHARMACY 0 MG IV SCH (09:30)
[2025-03-29] MEDS: FUROSEMIDE 40 MG/4 ML VIAL IV SCH (10:15)
[2025-03-29] MEDS: VANCOMYCIN 1GM/250ML KIT 250 ML IV SCH (10:15)
[2025-03-29] MEDS: APIXABAN 2.5 MG TAB PO SCH (10:16)
[2025-03-29] MEDS: CARVEDILOL 3.125 MG TAB PO SCH (10:16)
[2025-03-29] MEDS: CEFEPIME 2GM/50ML NS 50 ML IV SCH (12:58)
--- NOTE | 2025-03-29 13:09 | DVH ---
Bilateral lower extremity venous duplex Clinical History: R/O DVT Comparison: None Technique: Duplex Doppler evaluation of the deep venous systems of both lower extremities from the common femora l veins to the popliteal veins including color Doppler and spectral/pulsed waveform analysis was perf ormed. Findings: RIGHT SIDE: The common femoral vein demonstrates appropriate compressibility and waveform variability. There is compressibility/patency of the great saphenous vein at the proximal thigh. The femoral vein demonstrates appropriate compressibility and waveform variability. The deep femoral vein demonstrates appropriate compressibility and waveform variability. The popliteal vein demonstrates appropriate compressibility and waveform variability. There is normal compressibility at the tibioperoneal trunk. LEFT SIDE: The common femoral vein demonstrates appropriate compressibility and waveform variability. There is compressibility/patency of the great saphenous vein at the proximal thigh. The femoral vein demonstrates appropriate compressibility and waveform variability. The deep femoral vein demonstrates appropriate compressibility and waveform variability. The popliteal vein demonstrates appropriate compressibility and waveform variability. There is normal compressibility at the tibioperoneal trunk. Impression: 1. No right or left femoropopliteal venous thrombosis.
--- NOTE | 2025-03-29 13:31 | DVHSR ---
APPROVED REPORT EXAM: LIMITED Two-dimensional and M-mode echocardiogram with Doppler and color Doppler. Blood Pressure: 149/81 mmHg INDICATION CHF Exacerbation RISK FACTORS Obesity: Height: 5' 2", Weight: 242 DIMENSIONS LVDd5.0 (3.8-5.7cm)LA (2D)5.1 (1.9-4.0cm)Aortic Root3.6 (2.0-3.7cm) LVDs3.4 (2.5-4.0cm)LA (MM) (1.9-4.0cm)Aortic Cusp Exc1.5 (1.5-2.0cm) EF (%) 60.0 (55-70%)Rt. Atrium3.6 (1.9-4.0cm)Asc. Aorta cm IVSd1.2 (0.7-1.1cm)RV (D) (1.8-2.4cm) PWd1.2 (0.7-1.1cm) Mitral Valve MitralMitral Stenosis E wave2.00m/sMV Mean GR.5mmHg A wave1.50m/sMV Peak GR.12mmHg E/A ratio1.32D MVAcm2 DECEL [id number] 1/2 [id number] IVRTmsDop MVA2.80cm2 Aortic Valve Aortic ValveAortic Stenosis V11.20m/Taran Mean GR.4mmHg V21.30m/Taran Peak GR.7mmHg LVOT Diameter2.0 (1.8-2.4cm)Doppler AVA2.90cm2 Pulmonic Valve V20.70m/s Tricuspid Valve TR Velocity3.20m/s [id number] Other Information Quality : Technically LimitedRhythm : Technically limited study due to body habitus. Conclusion lvef 60% severe MAC moderate mitral stenosis, man gradient of 5 mmhg left atrium enlarged mild to moderate tricuspid regurg
--- NOTE | 2025-03-29 13:34 | DVHPNRES ---
Progress Note Date Seen: Mar 29, 2025 Resident Creating Document: TEVIN GALEANA RESIDENT Has the PT tested + for MRSA If YES, has PT been informed?: No Medical Necessity Reason Pt with a Central, PICC or Fol: No Subjective Review of Systems Carlene Velez is a 79-year-old female with past medical history of breast cancer (2022), DM2, hypertension, CHF, depression, coronary artery disease, and chronic kidney failure. The patient came to the ED with chief complaint of 1 day of shortness of breaths. The patient's reports that patient has recently discharged from [facility] 3 days ago for pneumonia. The EMS report the patient was on respiratory distress, O2 saturation 81%, weakness, lethargic, blood sugar of 39 and was given D50 EN route to the ED for further evaluation. Patient was seen and evaluated in the ED, laboratory data shows WBC 8.6, hemoglobin 8.9, hematocrit 27.7, platelets 164, sodium 134, potassium 5.0, BUN 48, creatinine 1.94, glucose 197, calcium 8.2, alkaline phos 141, BNP 996.88, troponin 12, albumin 3.1, blood pressure 117/55, heart rate 68, temperature 98.1 F, O2 saturation 97% on non-rebreather. Chest x-ray revealing cardiomegaly with mild pulmonary edema and small right pleural effusion. Patient was started on IV Lasix, please see medication orders section in the computer. On admission assessment, the patient denies chest pain, no dizziness, headache, diaphoresis, currently on non-rebreather, no diarrhea, nausea, vomiting, fever, no chills. Patient was admitted for further evaluation and medical management. Past Medical History Hypertension, Diabetes, DM, HTN, Chronic kidney failure, CHF, Depression, Coronary artery disease, Breast cancer Past Surgical History Coronary stents, Left mastectomy 2022, PTCA Family History Reviewed, noncontributory to the management of this case. Past Social History The patient lives at home, denies smoking, alcohol or illicit drugs abuse. Admission Course: On 03/29/25, the patient was evaluated at bedside, VS, labs and chart was reviewed. The patient is alert, no oriented, short responses, confused. The patient with O2 via oxymizer at 5L with O2sat at 94% . Labs report severe anemia 7.5mg/dl, Lactic acid 0.4, UA is positive for UTI, D-dimer is elevated. DVT US doppler was ordered. Creatinine is 1.46. Jerome was draining pink-eliana urine, new UA was ordered. Due to Hb is trending down a rectal exam was performed with brigette( LILI Petersen), and FOBT sample was sent to the lab. Cultures were ordered: Urine, blood and sputum. The patient was started on Vancomycin and cefepime IV. The patientes continues with furosemide 40mg iV. ECHo report is pending at this time. We will continue following this patient progress closely. Constitutional: Yes: general Weakness; No: Fever, Chills, Sweats, Malaise Eyes: No: Pain, Vision change, Conjunctivae inflammation, Eyelid inflammation, Other, Redness ENT: No: Ear pain, Ear discharge, Nose pain, Nose discharge, Nose congestion, Mouth pain, Mouth swelling, Throat pain, Throat swelling, Other Respiratory: Shortness of breath, (SOB at rest); No: Cough, Dry, SOB with excertion, Wheezing, Hemoptysis, Pleuritic Pain, Sputum, Wheezing Cardiovascular: No: Chest Pain, Palpitations, Orthopnea, Paroxysmal Noc. Dyspnea, Edema, Lt Headedness, Other Gastrointestinal: No: Nausea, Vomiting, Abdominal Pain, Diarrhea, Constipation, Melena, Hematochezia, Other Genitourinary: No Dysuria, No Frequency, No Incontinence, No Hematuria, No Retention, No Other Musculoskeletal: No: other, neck pain, shoulder pain, arm pain, back pain, hand pain, leg pain, foot pain Skin: No: Rash, Lesions, Jaundice, Bruising, Other Neurological: No: Weakness, Numbness, Incoordination, Change in speech, Confusion, Seizures, Other Coded Allergies: NO KNOWN ALLERGIES (Unverified , 01/28/17) Objective vital signs Vital Sign Date Time Temp Pulse Resp B/P (MAP) Pulse Ox O2 Delivery O2 Flow Rate FiO2 03/29/25 10:16 80 154/91 03/29/25 08:00 93 Oxymizer 5 N/A 03/29/25 07:30 98.4 18 98.4 medications Current Medications Medications Dose Ordered Sig/Cayla Route Start Time Stop Time Status Last Admin Dose Admin Furosemide 40 mg DAILY IV 03/29/25 10:00 03/29/25 10:15 40 MG Carvedilol 3.125 mg Q12HR PO 03/29/25 10:00 03/29/25 10:16 3.125 MG Hydralazine HCl 10 mg Q6HP PRN IV 03/29/25 02:15 Diagnostic Test (Pha) 1 strip ACHS 03/29/25 07:00 03/29/25 11:24 1 STRIP Insulin Human Regular HS SC 03/29/25 22:00 Insulin Human Regular AC SC 03/29/25 07:00 Dextrose 50 ml UD PRN IV 03/29/25 02:15 Apixaban 2.5 mg BID PO 03/29/25 10:00 03/29/25 10:16 2.5 MG Sodium Chloride 10 ml Q8HR IV 03/29/25 06:00 03/29/25 06:08 10 ML Acetaminophen/ Hydrocodone Bitart 1 tab Q4HP PRN PO 03/29/25 02:15 Ondansetron HCl 4 mg Q4HP PRN IV 03/29/25 02:15 Docusate Sodium 100 mg BIDPRN PRN PO 03/29/25 02:15 Acetaminophen 650 mg Q6HP PRN PO 03/29/25 02:15 Nitroglycerin 0.4 mg Q5MINP PRN SL 03/29/25 04:30 Morphine Sulfate 2 mg Q30M PRN IV 03/29/25 04:30 Vancomycin HCl 0 ml @ 0 mls/hr PER PHARMACY IV 03/29/25 09:30 Cefepime HCl 50 ml @ 12.5 mls/hr DAILY IV 03/29/25 10:00 Examination General Appearance: Alert, lethargic, oriented in person, cooperative, with Oxygen oxymizer at 5L with O2sat at 94% HEENT: Atraumatic, PERRLA, EOMI, Mucous membr. moist/pink Respiratory: in respiratory distress. Reduced lung expansion. Reduced bilateral lung sounds, more in the left, crackles in the bases. Cardiovascular: Regular rate, Normal S1, Normal S2, No murmurs Abdominal: Normal bowel sounds, Soft, No tenderness, No hepatospenomegaly, No masses Extremities: No clubbing, No cyanosis, No edema, Normal pulses, No tenderness/swelling. ecchymosis in right upper arm Skin: No rashes, No significant lesion Neuro: Speech is slow, confused, lethargic, with generalized weakness. laboratory and microbiology Laboratory Tests 03/29/25 03:20 Test 03/29/25 03:20 Range/Units Serum Glucose 58 L 74-106 mg/dL Problem List/Assessment/Plan Problem List/Assessment/Plan #Sepsis likely due to Pneumonia, gram +/- #Acute on chronic hypoxic respiratory failure #Pulmonary congestion #Pulmonary effusion #Acute on chronic systolic/Diastolic CHF exacerbation. Oxygen by Oxymizer 5L Telemetry BNP:996.25 ECHo D2 IV Antibiotics: Vancomycin and Cefepime. Furosemide 40mg IV daily Blood culture Urine culture Sputum culture #Possible DVT #Possible Pulmonary embolus US doppler bilateral lower extremities D-dimer elevated: 4.83 VQ scan pending #CAD Patient on eliquis #CKD stage 3b on CHRISTIANE Avoid nephrotoxic drugs Monitor Crea/ BUN #Severe Anemia Hb:7.5mg/dl FOBT Iron test B12 Type and screen #Generalized weakness likely due to Hypoglycemia Accucheck Dextrose 50ml if blood sugar<60 DVT prophylaxis: patient on Eliquis Diet: Cardiac diet Goals of care discussed with the patient for more than 35 minutes: Code Status: Full code PCP: Dr. Kirkpatrick Case discussed with Dr. Garcia Social consult was placed today to try to contact patient's family. Plan discussed with: Patient My Orders My Orders Orders - TEVIN GALEANA Procedure Category Date Status Time Bilat Lower Dvt US 03/29/25 Taken 09:16 Basic Metabolic Panel LAB 03/30/25 Verified 04:00 Mrsa Screen MARTHA 03/29/25 In Process 12:34 Stool Occult Blood LAB 03/29/25 Logged 12:34 Urinalysis LAB 03/29/25 Transmitted 12:44 Date of Service: Mar 29, 2025 Billing Provider: VISHAL GARCIA MD Common Visit Codes: [id number] INP/OBS CARE(HIGH) TEVIN GALEANA RESIDENT Mar 29, 2025 13:34 VISHAL GARCIA MD Mar 29, 2025 23:37
[2025-03-29 17:30] LABS: Iron 32.0 ug/dL (50-170); Total Iron Binding Capacity 212.0 ug/dL (250-425)
[2025-03-29] MEDS: HYDROcodone-ACET 5/325MG TAB PO PRN (17:39)
[2025-03-29] MEDS: IPRATROPIUM BROM 0.5 MG/2.5ML INH SOL NEB PRN (21:03)
[2025-03-29] MEDS: ALBUTEROL SULF 2.5 MG/0.5ML(0.5%) NEB SOLN NEB PRN (21:04)
[2025-03-29] MEDS: ALBUTEROL SULF 2.5 MG/0.5ML(0.5%) NEB SOLN ONE (21:04)
[2025-03-29] MEDS: IPRATROPIUM BROM 0.5 MG/2.5ML INH SOL ONE (21:04)
--- NOTE | 2025-03-29 23:11 | DVHINCON2 ---
Date of service: Mar 29, 2025 Reason for Consultation CHF History of Present Illness HPI The patient is a 79-year-old female known to our clinic who presented to the emergency department on 03/29/2025 for shortness of breath. Notably, she was recently discharged from [facility] three days prior following treatment for pneumonia. Her reports that she was noted to have an oxygen saturation of 81% at home associated with weakness and lethargy. He also stated that he was unaware supplemental oxygen could be used in conjunction with CPAP therapy, which is likely the cause of her hypoxia. Laboratory results revealed hemoglobin 7.5, D-dimer 4.83 (with subsequent bilateral lower extremity Doppler ultrasound negative for DVT), BNP 996.8, potassium 4.2, creatinine 1.94, high-sensitivity troponin 12, with repeat 12, and hemoglobin A1c 9.5%. Iron studies showed serum iron 32 and TIBC 212. Urinalysis was positive for leukocytes. Chest X-ray demonstrated cardiomegaly with mild pulmonary edema and a small right pleural effusion. At present, the patient denies chest pain, shortness of breath, or palpitations. Cardiology was consulted to manage cardiac aspects of care. Past medical history includes coronary artery disease status post prior PCI to the mid LAD; breast cancer status post left mastectomy; diabetes mellitus; hypertension; chronic diastolic heart failure; COPD on home oxygen therapy; peripheral neuropathy; anxiety; depression; GERD; paroxysmal atrial fibrillation on chronic anticoagulation; status post previous hand surgery, hysterectomy, and left mastectomy. Lexiscan stress test (12/11/2023) revealed no evidence of gross ischemia with an ejection fraction of 70%. Echocardiogram ([facility] 01/09/2024): Technically difficult study. Left ventricle demonstrates mildly increased wall thickness with stage I diastolic dysfunction. Right ventricular size and function are normal. Left ventricular ejection fraction (LVEF) is 60% by visual estimation. Right atrium is mildly dilated; mild left atrial dilation is present. Aortic and mitral valves open adequately. Trace mitral regurgitation, trace pulmonic regurgitation, and mild tricuspid regurgitation noted. Estimated RVSP is 24 mmHg. Echocardiogram ([facility] 03/05/2025): Technically difficult study. LVEF is 6570% by visual estimation. Mild left ventricular hypertrophy and stage I diastolic dysfunction are present. Right ventricle is mildly dilated with normal function. Left atrium is severely dilated; moderate right atrial dilation noted. Tricuspid valve demonstrates mild regurgitation with RVSP 55 mmHg. Trace pulmonic regurgitation observed. Mitral valve structure is normal with mildly restricted motion and mild leaflet thickening. There is moderate posterior mitral annular calcification and mild mitral regurgitation without evidence of mitral stenosis or aortic stenosis. Echocardiogram ([facility] 03/29/2025): LVEF 60% by visual estimation. Severe mitral annular calcification is noted with moderate mitral stenosis and a mean transmitral gradient of 5 mmHg. Left atrium is enlarged. [id number] tricuspid regurgitation is present. . Home Meds Active Scripts Ciprofloxacin Hcl (Cipro) 500 Mg Tab, 1 TAB PO BID, #20 TAB Prov:CLAUDIA LEE MD 10/22/23 Reported Medications Potassium Chloride (Klor-Con M10) 10 Meq Tab, 1 TAB PO DAILY, #30 TAB 5 Refills 10/20/23 Metformin HCl (Metformin Hydrochloride) 1,000 Mg Tab, 1000 MG PO BID, TAB 10/20/23 Magnesium Oxide (MAGNESIUM OXIDE) 400 Mg Tab, 400 MG OR DAILY, TAB 10/20/23 Escitalopram Oxalate (ESCITALOPRAM OXALATE) 20 Mg Tab, 1 TAB PO BID, #30 TAB 5 Refills 10/20/23 Tramadol Hcl (Tramadol Hcl) 50 Mg Tab, 50 MG PO Q6HP PRN for PAIN SCALE 1-3 OR TEMP>100.4, MG 10/20/23 Gabapentin (Gabapentin) 800 Mg Tab, 800 MG PO DAILY, TAB 10/20/23 Empagliflozin (Jardiance) 10 Mg Tab, 10 MG PO DAILY, TAB 10/20/23 Umeclidinium-Vilanterol (Anoro Ellipta 62.5-25 Mcg/INH) 1 Aer Aer, 1 AER IN, AER 10/20/23 Azilsartan Medoxomil-Chlorthal (Edarbyclor 40-25 mg) 1 Tab Tab, 1 TAB PO DAILY, TAB 10/20/23 Nifedipine (Nifedipine Er) 30 Mg Tab, 30 MG PO DAILY, TAB 10/20/23 Apixaban Base (ELIQUIS) 2.5 Mg Tab, 2.5 MG PO BID, TAB 10/20/23 Ropinirole Hydrochloride (Ropinirole Hcl) 0.5 Mg Tab, 1 TAB PO DAILY 10/20/23 Tramadol Hcl (Tramadol Hcl) 50 Mg Tab, 50 MG PO Q6HP PRN for MODERATE PAIN, MG 01/28/17 Potassium Chloride (Klor-Con M10) 10 Meq Tab, 1 TAB PO DAILY, #30 TAB 5 Refills 01/28/17 Aspirin (Aspir-Low) 81 Mg Tab, 81 MG PO DAILY for 30 Days, MG 01/28/17 Cyanocobalamin (B12) 1,000 Mcg Tab, 1000 MCG PO DAILY, TAB 01/28/17 Pravastatin Sodium (PRAVACHOL TABLET) 20 Mg Tb, 20 MG PO DAILY 01/28/17 Hydralazine Hcl (Hydralazine Hcl) 25 Mg Tab, 25 MG PO TID for 30 Days, MG 01/28/17 Carvedilol (Carvedilol) 25 Mg Tab, 1 TAB PO BID, #180 TAB 1 Refill 01/28/17 Clonidine Hydrochloride (Clonidine Hcl) 0.1 Mg Tab, 0.1 MG PO TID for 30 Days, MG 01/28/17 Gabapentin (GABAPENTIN) 250 Mg/5 Ml Sherita, 300 MG PO BID 01/28/17 Metformin Hydrochloride (Metformin Hcl) 850 Mg Tab, 1000 MG PO BID for 30 Days, MG 01/28/17 Insulin Lispro (Human) (Humalog) 100 Mg/Ml Inj, 20 MG SC BID, INJ 01/28/17 Past Medical History Patient Family History: Diabetes mellitus G8 MOTHER, G8 FATHER Hypertension G8 MOTHER, G8 FATHER Ischemic heart disease Review of Systems Comments A 14-point review of systems is negative unless otherwise noted in HPI H&P Exam Vital Signs Vital Signs Date Time Temp Pulse Resp B/P (MAP) Pulse Ox O2 Delivery O2 Flow Rate FiO2 03/29/25 22:52 82 96 Facial BiPAP Mask 60 03/29/25 22:50 180/83 03/29/25 21:10 32 8.0 03/29/25 17:00 99.2 99.2 Comments Heart: S1 and S2 present. The patient is in sinus rhythm. Lungs: Scattered rhonchi. Abdomen: Benign. Extremities: Distal pulses palpable, 2+. No evidence for peripheral edema Labs/Xrays Labs Test 03/29/25 21:10 03/29/25 13:27 03/29/25 10:24 03/29/25 04:30 Range/Units POC Glucose 173 H 70-106 mg/dl D-Dimer, Quantitative 4.83 H 0.0-0.49 mg/L FEU Urine Color Dark yellow Yellow Urine Clarity Ex.turbid Clear Urine pH 5.5 5.0-9.0 Urine Specific [place] 1.010 1.001-1.035 Urine Protein 1+ H Negative Urine Ketones Negative Negative Urine Blood 2+ H Negative /uL Urine Nitrite Negative Negative Urine Bilirubin Negative Negative Urine Urobilinogen Normal Negative mg/dL Urine Leukocyte Esterase 3+ Negative /uL Urine RBC 96 0 - 4 /hpf Urine WBC Clumps Present None Seen /hpf Urine Microscopic WBC 2737 H 0-5 /HPF Urine Squamous Epithelial Cells None seen <5 /hpf Urine Bacteria None seen None Seen /hpf Urine Yeast (Budding) Loaded None Seen /hpf Urine Glucose Normal Normal mg/dL Test 03/29/25 03:20 03/29/25 02:12 03/29/25 01:22 03/29/25 01:12 Range/Units White Blood Count 6.9 4.4-10.8 10^3/uL Red Blood Count 2.61 L 4.0-5.20 10^6/uL Hemoglobin 7.5 #L 12.2-16.2 g/dL Hematocrit 23.4 #L 36.0-46.0 % Mean Corpuscular Volume 89.9 80.0-100.0 fL Mean Corpuscular Hemoglobin 28.7 28.0-32.0 pg Mean Corpuscular Hemoglobin Concent 32.0 32.0-36.0 g/dL Red Cell Distribution Width 13.8 11.8-14.3 % Platelet Count 132 L 140-450 10^3/uL Mean Platelet Volume 8.2 6.9-10.8 fL Neutrophils (%) (Auto) 74.1 37.0-80.0 % Lymphocytes (%) (Auto) 13.1 10.0-50.0 % Monocytes (%) (Auto) 8.9 0.0-12.0 % Eosinophils (%) (Auto) 3.1 0.0-7.0 % Basophils (%) (Auto) 0.8 0.0-2.0 % Neutrophils # (Auto) 5.1 1.6-8.6 10 ^3/uL Lymphocytes # (Auto) 0.9 0.4-5.4 10 ^3/uL Monocytes # (Auto) 0.6 0-1.3 10 ^3/uL Eosinophils # (Auto) 0.2 0-0.8 10 ^3/uL Basophils # (Auto) 0.1 0-0.2 10 ^3/uL Nucleated Red Blood Cells 0.1 % Sodium Level 140 # 136-145 mmol/L Potassium Level 4.2 3.5-5.1 mmol/L Chloride Level 106 # 98-107 mmol/L Carbon Dioxide Level 27 20-31 mmol/L Anion Gap 7 5-15 Blood Urea Nitrogen 34 #H 9-23 mg/dL Creatinine 1.46 H 0.550-1.02 mg/dL Glomerular Filtration Rate Calc 37 >90 mL/min BUN/Creatinine Ratio 23.3 H 10.0-20.0 Serum Glucose 58 L 74-106 mg/dL Calcium Level 6.5 L 8.7-10.4 mg/dL Total Bilirubin 0.2 0.2-1.0 mg/dL Aspartate Amino Transferase (AST) 14 13-40 U/L Alanine Aminotransferase (ALT) < 9 7-40 U/L Alkaline Phosphatase 113 46-116 U/L Total Protein 5.4 L 5.7-8.2 g/dL Albumin 2.5 L 3.2-4.8 g/dL Troponin I High Sensitivity 12 </=34 ng/L Lactic Acid Level 0.4 0.4-2.0 mmol/L Iron Level 32 L 50-170 ug/dL Total Iron Binding Capacity 212 L 250-425 ug/dL Percent Iron Saturation 15.1 15-50 % Hemoglobin A1c 9.5 H <5.7 % A1C B-Type Natriuretic Peptide 996.88 0-100 pg/mL Assessment/Plan Plan Assessment: Coronary artery disease, status post prior PCI to mid LAD; no ischemia on recent Lexiscan (12/11/2023) Elevated BNP consistent with mild volume overload and diastolic dysfunction Anemia, likely secondary to iron deficiency (iron 32, TIBC 212) Moderate mitral stenosis secondary to severe mitral annular calcification Acute on chronic diastolic heart failure with preserved ejection fraction Chronic kidney disease with acute kidney injury (creatinine 1.94) Severe left atrial enlargement and moderate tricuspid regurgitation. Paroxysmal atrial fibrillation on chronic anticoagulation History of breast cancer status post mastectomy Diabetes mellitus with A1c 9.5% COPD on home oxygen therapy Small right pleural effusion Hypertension Cardiology Recommendations: Given the elevated creatinine, a VQ scan is recommended to rule out pulmonary embolism in the presence of an elevated D-dimer and to avoid further nephrotoxic contrast exposure. Optimize guideline-directed medical therapy (GDMT) for heart failure with preserved ejection fraction. Diurese as tolerated to improve volume status, given elevated BNP and mild pulmonary edema. Monitor renal function and electrolytes closely during diuresis. Continue supplemental oxygen with CPAP at night; patient and spouse educated regarding concurrent use. Address anemia: findings are consistent with iron deficiency anemia (iron 32, TIBC 212). Recommend initiation of iron supplementation and further workup for chronic blood loss or nutritional deficiency as clinically indicated. Maintain rate and rhythm control for atrial fibrillation; continue chronic anticoagulation unless contraindicated. Optimize control of hypertension and diabetes mellitus. Reassess volume status, BNP, and renal function daily to guide further diuretic therapy.Recognizing presentation/recent NST finding, ACS at this point is not considered. As ACS is not considered, no indication warranted for ischemic workup at present time. Proceed with close observation for overt signs of fluid overload Proceed with strict intakes, outputs, and daily weights Proceed with close rate and rhythm surveillance Proceed with close hemodynamic surveillance Proceed with optimized blood pressure control Transfuse to sustain HGB levels above 7.0 Sustain Magnesium level greater than 2.0 Sustain Potassium level greater than 4.0 Follow up renal function and electrolytes Request for VQ scan to R/O PE Management in Telemetry Will proceed to follow from a cardiac perspective Further recommendations per clinical progression All available labs, EKGs, and images were personally reviewed Patient's status, findings, and plan of care was discussed and reviewed with supervising physician Dr. Kirkpatrick, who is in agreement with current plan of care. Plan of care discussed with and agreed upon by patient/family/Primary RN. Prognosis: Guarded Thank you for allowing me to participate in the care of this patient. Further recommendations will depend on clinical progression, hospitalist, and other consultants. Will continue to follow with Primary. If you have any questions, please do not hesitate to contact me. A total of 75 minutes was spent reviewing the patient record, examining the patient, making a diagnostic and therapeutic plan, discussing this plan with medical personnel, following up on diagnostic studies and following the patient for clinical stability excluding any and all procedures. At least 50% of this time was spent in direct, [id number] contact. Plan discussed with: Patient SALINA LOCKETT NP Mar 29, 2025 23:11
[2025-03-30] VITALS (12 sets, daily range): BP systolic 141–179; BP diastolic 79–95; PULSE 74–92; RESP 18–20; TEMP 97.4–98.8; O2SAT 94–97
[2025-03-30 06:35] LABS: Hematocrit 29.4 % (36.0-46.0); Hemoglobin 9.8 g/dL (12.2-16.2); Mean Corpuscular Hemoglobin 29.0 pg (28.0-32.0); Mean Corpuscular Volume 87.1 fL (80.0-100.0); Nucleated Red Blood Cells % 0.1 %
[2025-03-30 07:05] LABS: Anion Gap 8 (5-15); BUN/Creatinine Ratio 32.4 (10.0-20.0); Glucose 93 mg/dL (74-106); Potassium 4.3 mmol/L (3.5-5.1); Sodium 139 mmol/L (136-145); Total Protein 6.6 g/dL (5.7-8.2)
[2025-03-30 07:06] LABS: Bilirubin, Total 0.3 mg/dL (0.2-1.0)
[2025-03-30 07:26] LABS: Alanine Aminotransferase < 9 U/L (7-40); Albumin 3.1 g/dL (3.2-4.8); Alkaline Phosphatase 143 U/L (46-116); Blood Urea Nitrogen 45 mg/dL (9-23); Calcium 8.4 mg/dL (8.7-10.4); Carbon Dioxide 35 mmol/L (20-31); Chloride 96 mmol/L (98-107)
--- NOTE | 2025-03-30 08:11 | DVHPN2 ---
Progress Note - Dictate Date Seen: Mar 30, 2025 Has the PT tested + for MRSA If YES, has PT been informed?: No Medical Necessity Reason Pt with a Central, PICC or Fol: No vital signs Vital Sign Date Time Temp Pulse Resp B/P (MAP) Pulse Ox O2 Delivery O2 Flow Rate FiO2 03/30/25 05:00 97.5 76 20 158/90 (112) 95 97.5 03/30/25 01:48 Facial BiPAP Mask 60 03/29/25 21:10 8.0 Total Intake and Output 03/29/25 03/29/25 03/30/25 15:00 23:00 07:00 Intake Total 600 ml 400 ml 800 ml Output Total 100 ml Balance 600 ml 300 ml 800 ml medications Current Medications Medications Dose Ordered Sig/Cayla Route Start Time Stop Time Status Last Admin Dose Admin Furosemide 40 mg DAILY IV 03/29/25 10:00 03/29/25 10:15 40 MG Carvedilol 3.125 mg Q12HR PO 03/29/25 10:00 03/29/25 22:50 3.125 MG Hydralazine HCl 10 mg Q6HP PRN IV 03/29/25 02:15 Diagnostic Test (Pha) 1 strip ACHS 03/29/25 07:00 03/30/25 06:08 1 STRIP Insulin Human Regular HS SC 03/29/25 22:00 03/29/25 22:44 3 UNITS Insulin Human Regular AC SC 03/29/25 07:00 Dextrose 50 ml UD PRN IV 03/29/25 02:15 Apixaban 2.5 mg BID PO 03/29/25 10:00 03/29/25 22:47 2.5 MG Sodium Chloride 10 ml Q8HR IV 03/29/25 06:00 03/30/25 06:08 10 ML Acetaminophen/ Hydrocodone Bitart 1 tab Q4HP PRN PO 03/29/25 02:15 03/29/25 22:47 1 TAB Ondansetron HCl 4 mg Q4HP PRN IV 03/29/25 02:15 Docusate Sodium 100 mg BIDPRN PRN PO 03/29/25 02:15 Acetaminophen 650 mg Q6HP PRN PO 03/29/25 02:15 Nitroglycerin 0.4 mg Q5MINP PRN SL 03/29/25 04:30 Morphine Sulfate 2 mg Q30M PRN IV 03/29/25 04:30 Vancomycin HCl 0 ml @ 0 mls/hr PER PHARMACY IV 03/29/25 09:30 Cefepime HCl 50 ml @ 12.5 mls/hr DAILY IV 03/29/25 10:00 03/29/25 12:58 12.5 MLS/HR Albuterol 2.5 mg Q4HPRN PRN NEB 03/29/25 20:45 03/30/25 04:59 2.5 MG Ipratropium [place] 0.5 mg Q4HPRN PRN NEB 03/29/25 20:45 03/30/25 04:58 0.5 MG laboratory and microbiology Laboratory Tests 03/30/25 05:54 Test 03/30/25 05:54 Range/Units Serum Glucose 93 74-106 mg/dL Assessment/Plan The patient is a 79-year-old female known to our clinic who presented to the emergency department on 03/29/2025 for shortness of breath. Notably, she was recently discharged from [facility] three days prior following treatment for pneumonia. Her reports that she was noted to have an oxygen saturation of 81% at home associated with weakness and lethargy. He also stated that he was unaware supplemental oxygen could be used in conjunction with CPAP therapy, which is likely the cause of her hypoxia. Laboratory results revealed hemoglobin 7.5, D-dimer 4.83 (with subsequent bilateral lower extremity Doppler ultrasound negative for DVT), BNP 996.8, potassium 4.2, creatinine 1.94, high-sensitivity troponin 12, with repeat 12, and hemoglobin A1c 9.5%. Iron studies showed serum iron 32 and TIBC 212. Urinalysis was positive for leukocytes. Chest X-ray demonstrated cardiomegaly with mild pulmonary edema and a small right pleural effusion. At present, the patient denies chest pain, shortness of breath, or palpitations. Cardiology was consulted to manage cardiac aspects of care. Past medical history includes coronary artery disease status post prior PCI to the mid LAD; breast cancer status post left mastectomy; diabetes mellitus; hypertension; chronic diastolic heart failure; COPD on home oxygen therapy; peripheral neuropathy; anxiety; depression; GERD; paroxysmal atrial fibrillation on chronic anticoagulation; status post previous hand surgery, hysterectomy, and left mastectomy. Lexiscan stress test (12/11/2023) revealed no evidence of gross ischemia with an ejection fraction of 70%. Echocardiogram ([facility] 01/09/2024): Technically difficult study. Left ventricle demonstrates mildly increased wall thickness with stage I diastolic dysfunction. Right ventricular size and function are normal. Left ventricular ejection fraction (LVEF) is 60% by visual estimation. Right atrium is mildly dilated; mild left atrial dilation is present. Aortic and mitral valves open adequately. Trace mitral regurgitation, trace pulmonic regurgitation, and mild tricuspid regurgitation noted. Estimated RVSP is 24 mmHg. Echocardiogram ([facility] 03/05/2025): Technically difficult study. LVEF is 6570% by visual estimation. Mild left ventricular hypertrophy and stage I diastolic dysfunction are present. Right ventricle is mildly dilated with normal function. Left atrium is severely dilated; moderate right atrial dilation noted. Tricuspid valve demonstrates mild regurgitation with RVSP 55 mmHg. Trace pulmonic regurgitation observed. Mitral valve structure is normal with mildly restricted motion and mild leaflet thickening. There is moderate posterior mitral annular calcification and mild mitral regurgitation without evidence of mitral stenosis or aortic stenosis. Echocardiogram ([facility] 03/29/2025): LVEF 60% by visual estimation. Severe mitral annular calcification is noted with moderate mitral stenosis and a mean transmitral gradient of 5 mmHg. Left atrium is enlarged. [id number] tricuspid regurgitation is present. Assessment: Coronary artery disease, status post prior PCI to mid LAD; no ischemia on recent Lexiscan (12/11/2023) Elevated BNP consistent with mild volume overload and diastolic dysfunction Anemia, likely secondary to iron deficiency (iron 32, TIBC 212) Moderate mitral stenosis secondary to severe mitral annular calcification Acute on chronic diastolic heart failure with preserved ejection fraction Chronic kidney disease with acute kidney injury (creatinine 1.94) Severe left atrial enlargement and moderate tricuspid regurgitation. Paroxysmal atrial fibrillation on chronic anticoagulation History of breast cancer status post mastectomy Diabetes mellitus with A1c 9.5% COPD on home oxygen therapy Small right pleural effusion Hypertension Abnormal D-Dimer Cardiology Recommendations: Given the elevated creatinine, a VQ scan is recommended to rule out pulmonary embolism in the presence of an elevated D-dimer and to avoid further nephrotoxic contrast exposure. Optimize guideline-directed medical therapy (GDMT) for heart failure with preserved ejection fraction. Diurese as tolerated to improve volume status, given elevated BNP and mild pulmonary edema. Monitor renal function and electrolytes closely during diuresis. Continue supplemental oxygen with CPAP at night; patient and spouse educated regarding concurrent use. Address anemia: findings are consistent with iron deficiency anemia (iron 32, TIBC 212). Recommend initiation of iron supplementation and further workup for chronic blood loss or nutritional deficiency as clinically indicated. Maintain rate and rhythm control for atrial fibrillation; continue chronic anticoagulation unless contraindicated. Optimize control of hypertension and diabetes mellitus. Reassess volume status, BNP, and renal function daily to guide further diuretic therapy.Recognizing presentation/recent NST finding, ACS at this point is not considered. As ACS is not considered, no indication warranted for ischemic workup at present time. Proceed with close observation for overt signs of fluid overload Proceed with strict intakes, outputs, and daily weights Proceed with close rate and rhythm surveillance Proceed with close hemodynamic surveillance Proceed with optimized blood pressure control Transfuse to sustain HGB levels above 7.0 Sustain Magnesium level greater than 2.0 Sustain Potassium level greater than 4.0 Follow up renal function and electrolytes Request for VQ scan to R/O PE IV lasix: 60 mg IV BID Management in Telemetry Will proceed to follow from a cardiac perspective Further recommendations per clinical progression All available labs, EKGs, and images were personally reviewed Plan of care discussed with and agreed upon by patient/family/Primary RN. Prognosis: Guarded Thank you for allowing me to participate in the care of this patient. Further recommendations will depend on clinical progression, hospitalist, and other consultants. Will continue to follow with Primary. If you have any questions, please do not hesitate to contact me. A total of 55 minutes was spent reviewing the patient record, examining the patient, making a diagnostic and therapeutic plan, discussing this plan with medical personnel, following up on diagnostic studies and following the patient for clinical stability excluding any and all procedures. At least 50% of this time was spent in direct, [id number] contact. Plan discussed with: Patient, Other (nurse) JORGE ESPOSITO MD Mar 30, 2025 08:10
--- NOTE | 2025-03-30 09:56 | ECG ---
[facility] Test Date: 2025-03-29 Test Time: 01:25:41 Pat Name: ALEX ORTIZ Department: [facility] ED Patient ID: [id number] Room: Pending sale to [facility]5T A Gender: F Nuclear Medicine Physician: : [id number] Requested By: KRIS ALVA Order Number: [id number] Reading MD: Chaim Castelan Measurements Intervals Dodge Rate: 70 P: 74 UT: 151 QRS: 62 QRSD: 94 T: 49 QT: 374 QTc: 404 Interpretive Statements Sinus rhythm Low voltage, extremity leads Electronically Signed On 03-30-2025 15:14:21 PDT by Chaim Castelan Please click the below link to view image of tracing.
[2025-03-30] MEDS: FUROSEMIDE 40 MG/4 ML VIAL IV SCH (10:14)
--- NOTE | 2025-03-30 13:41 | DVH ---
Procedure: CT CHEST WITHOUT CONTRAST Reason for study/Clinical History: R/O metastasis lung Comparison Study: None TECHNIQUE: Multidetector CT of the chest was performed from the lung apices to the upper abdomen with out the use of intravenous contract. Axial, coronal and sagittal multiplanar reformats were performed . Radiation Dose Information: CT Dose: CTDI volume is 17.83 mGy. Dose-length product is 592.4 mGy*cm The dose indicators for CT are the volume Computed Tomography (CT) Dose Index (CTDIvol) and the Dose Length Product (DLP), and are measured in units of mGy and mGy-cm, respectively. These indicators are not patient dose, but values generated from the CT scanner acquisition factors. The report includes radiation exposure data for exposures received during this examination. FINDINGS: Lower neck: Unremarkable. Lungs: Left lower lobe atelectasis/consolidation. Right middle lobe and right lower lobe compressive atelectasis. Diffuse interlobular septal thickening. Heart/Vascular Structures: Cardiomegaly. Coronary artery calcifications. Vascular calcifications of t he aorta. Lymph Nodes: No adenopathy Pleura: Moderate right pleural effusion which appears to be loculated. Musculoskeletal: Multilevel degenerative changes of the spine. Soft tissues: Normal. Upper abdomen: Limited portions of the upper abdomen are unremarkable. IMPRESSION: Moderate right pleural effusion which appears to be loculated. Left lower lobe atelectasis/consolidation. Right middle lobe and right lower lobe compressive atelectasis. Diffuse interlobular septal thickening. This is likely related to CHF. Cardiomegaly. Radiation optimization: All CT scans at this facility use at least one of these dose optimization mer hniques: automated exposure control mA and/or kV adjustment per patient size (includes targeted exam s where dose is matched to clinical indication) or iterative reconstruction.
[2025-03-30] MEDS: VANCOMYCIN 1GM/250ML KIT 250 ML IV ONE (14:21)
[2025-03-30] MEDS: hydrALAZINE HCL 20 MG/ML VL IV PRN (14:31)
--- NOTE | 2025-03-30 15:19 | DVH ---
NUCLEAR MEDICINE VENTILATION/PERFUSION LUNG SCAN. INDICATION: PULMONARY EMBOLISM TECHNIQUE: Following intravenous demonstration of 6 millicuries of technetium 99m MAA, and inhalati on of 40 mCi of Tc 99m DTPA scintigrams were obtained in multiple projections of the lungs. FINDINGS: There is normal uptake of radionuclide on both the ventilation and perfusion portions of the examinat ion. No mismatched perfusion defects are demonstrated. Uptake is normally homogeneous. IMPRESSION: Low probability for PE.
--- NOTE | 2025-03-30 16:57 | DVHPNRES ---
Progress Note Date Seen: Mar 30, 2025 Resident Creating Document: TEVIN GALEANA RESIDENT Has the PT tested + for MRSA If YES, has PT been informed?: No Medical Necessity Reason Pt with a Central, PICC or Fol: No Subjective Review of Systems Carlene Velez is a 79-year-old female with past medical history of breast cancer (2022), DM2, hypertension, CHF, depression, coronary artery disease, and chronic kidney failure. The patient came to the ED with chief complaint of 1 day of shortness of breaths. The patient's reports that patient has recently discharged from [facility] 3 days ago for pneumonia. The EMS report the patient was on respiratory distress, O2 saturation 81%, weakness, lethargic, blood sugar of 39 and was given D50 EN route to the ED for further evaluation. Patient was seen and evaluated in the ED, laboratory data shows WBC 8.6, hemoglobin 8.9, hematocrit 27.7, platelets 164, sodium 134, potassium 5.0, BUN 48, creatinine 1.94, glucose 197, calcium 8.2, alkaline phos 141, BNP 996.88, troponin 12, albumin 3.1, blood pressure 117/55, heart rate 68, temperature 98.1 F, O2 saturation 97% on non-rebreather. Chest x-ray revealing cardiomegaly with mild pulmonary edema and small right pleural effusion. Patient was started on IV Lasix, please see medication orders section in the computer. On admission assessment, the patient denies chest pain, no dizziness, headache, diaphoresis, currently on non-rebreather, no diarrhea, nausea, vomiting, fever, no chills. Patient was admitted for further evaluation and medical management. Past Medical History Hypertension, Diabetes, DM, HTN, Chronic kidney failure, CHF, Depression, Coronary artery disease, Breast cancer 2022 Past Surgical History Coronary stents, Left mastectomy 2022, PTCA Family History Reviewed, noncontributory to the management of this case. Past Social History The patient lives at home, denies smoking, alcohol or illicit drugs abuse. Admission Course: On 03/29/25, the patient was evaluated at bedside, VS, labs and chart was reviewed. The patient is alert, no oriented, short responses, confused. The patient with O2 via oxymizer at 5L with O2sat at 94% . Labs report severe anemia 7.5mg/dl, Lactic acid 0.4, UA is positive for UTI, D-dimer is elevated. DVT US doppler was ordered. Creatinine is 1.46. Hurtado was draining pink-eliana urine, new UA was ordered. Due to Hb is trending down a rectal exam was performed with heat treat supervisor ( LILI Petersen), and FOBT sample was sent to the lab. Cultures were ordered: Urine, blood and sputum. The patient was started on Vancomycin and cefepime IV. The patient continues with furosemide 40mg IV. ECHo report is pending at this time. We will continue following this patient progress closely. On 03/30/25, the patient was re-evaluated and examined at bedside. VS, labs and chart was reviewed at bedside. The patient is still on oxymizer at 8L. BP is in the upper side. Due to improved on creatinine lisinopril was added, carvedilol dose was increased to 6.25. WBC are 9.1. Patinnt is on Vancomycin and Cefepime. VQ scan was negative for PE. Chest CT scan showed: Moderate right pleural effusion which appears to be loculated. Left lower lobe atelectasis/consolidation. Right middle lobe and right lower lobe compressive atelectasis. Diffuse interlobular septal thickening. This is likely related to CHF. Cardiomegaly. Pulmonary consult was placed. Hematuria was noted from the hurtado catheter. Eliquist was stopped by cardiology (Dr. Zimmerman). The patient reports today dypsnea and back pain. Pain is been management with Provencal 5/325mg. I spoke with the patient' and addressed his questions and concerns. We will continue following up this patient progress closely. ROS: Constitutional: Yes: general Weakness; No: Fever, Chills, Sweats, Malaise Eyes: No: Pain, Vision change, Conjunctivae inflammation, Eyelid inflammation, Other, Redness ENT: No: Ear pain, Ear discharge, Nose pain, Nose discharge, Nose congestion, Mouth pain, Mouth swelling, Throat pain, Throat swelling, Other Respiratory: Shortness of breath, (SOB at rest); No: Cough, Dry, SOB with excertion, Wheezing, Hemoptysis, Pleuritic Pain, Sputum, Wheezing Cardiovascular: No: Chest Pain, Palpitations, Orthopnea, Paroxysmal Noc. Dyspnea, Edema, Lt Headedness, Other Gastrointestinal: No: Nausea, Vomiting, Abdominal Pain, Diarrhea, Constipation, Melena, Hematochezia, Other Genitourinary: No Dysuria, No Frequency, No Incontinence, No Hematuria, No Retention, No Other Musculoskeletal: Back pain No: other, neck pain, shoulder pain, arm pain, hand pain, leg pain, foot pain Skin: No: Rash, Lesions, Jaundice, Bruising, Other Neurological: No: Weakness, Numbness, Incoordination, Change in speech, Confusion, Seizures, Other Coded Allergies: NO KNOWN ALLERGIES (Unverified , 01/28/17) Objective vital signs Vital Sign Date Time Temp Pulse Resp B/P (MAP) Pulse Ox O2 Delivery O2 Flow Rate FiO2 03/30/25 14:31 191/107 03/30/25 13:00 98.8 89 18 95 98.8 03/30/25 08:56 Oxymizer 8 N/A Total Intake and Output 03/29/25 03/29/25 03/30/25 15:00 23:00 07:00 Intake Total 600 ml 400 ml 800 ml Output Total 100 ml Balance 600 ml 300 ml 800 ml medications Current Medications Medications Dose Ordered Sig/Cayla Route Start Time Stop Time Status Last Admin Dose Admin Carvedilol 3.125 mg Q12HR PO 03/29/25 10:00 03/30/25 10:13 3.125 MG Hydralazine HCl 10 mg Q6HP PRN IV 03/29/25 02:15 03/30/25 14:31 10 MG Diagnostic Test (Pha) 1 strip ACHS 03/29/25 07:00 03/30/25 11:51 1 STRIP Insulin Human Regular HS SC 03/29/25 22:00 03/29/25 22:44 3 UNITS Insulin Human Regular AC SC 03/29/25 07:00 Dextrose 50 ml UD PRN IV 03/29/25 02:15 Apixaban 2.5 mg BID PO 03/29/25 10:00 03/29/25 22:47 2.5 MG Sodium Chloride 10 ml Q8HR IV 03/29/25 06:00 03/30/25 14:20 10 ML Acetaminophen/ Hydrocodone Bitart 1 tab Q4HP PRN PO 03/29/25 02:15 03/30/25 15:06 1 TAB Ondansetron HCl 4 mg Q4HP PRN IV 03/29/25 02:15 Docusate Sodium 100 mg BIDPRN PRN PO 03/29/25 02:15 Acetaminophen 650 mg Q6HP PRN PO 03/29/25 02:15 Nitroglycerin 0.4 mg Q5MINP PRN SL 03/29/25 04:30 Morphine Sulfate 2 mg Q30M PRN IV 03/29/25 04:30 Vancomycin HCl 0 ml @ 0 mls/hr PER PHARMACY IV 03/29/25 09:30 Albuterol 2.5 mg Q4HPRN PRN NEB 03/29/25 20:45 03/30/25 04:59 2.5 MG Ipratropium [place] 0.5 mg Q4HPRN PRN NEB 03/29/25 20:45 03/30/25 04:58 0.5 MG Furosemide 60 mg BIDD IV 03/30/25 09:45 03/30/25 10:14 60 MG Cefepime HCl 50 ml @ 12.5 mls/hr Q12H IV 03/30/25 18:00 Examination General Appearance: Alert, lethargic, oriented in person, place and time. Cooperative, with Oxygen oxymizer at 8L with O2sat at 96% HEENT: Atraumatic, PERRLA, EOMI, Mucous membr. moist/pink Respiratory: Reduced lung expansion. Reduced bilateral lung sounds, more in the left, crackles in the bases. Cardiovascular: Regular rate, Normal S1, Normal S2, No murmurs Abdominal: Normal bowel sounds, Soft, No tenderness, No hepatospenomegaly, No masses Extremities: No clubbing, No cyanosis, No edema, Normal pulses, No tenderness/swelling. ecchymosis in right upper arm : Hematuric urine coming from Hurtado catheter. Skin: No rashes, No significant lesion Neuro: lethargic, with generalized weakness. laboratory and microbiology Laboratory Tests 03/30/25 05:54 Test 03/30/25 05:54 Range/Units Serum Glucose 93 74-106 mg/dL Microbiology Date/Time Source Procedure Growth Status 03/29/25 12:28 Nose MRSA Screen - Final Complete 03/29/25 12:27 Voided Urine Urine Culture - Preliminary Resulted 03/29/25 01:30 Blood Blood Culture - Preliminary NO GROWTH AFTER 24 HOURS OF INCUBATION. Resulted Problem List/Assessment/Plan Problem List/Assessment/Plan #Sepsis likely due to Pneumonia, gram +/- #Acute on chronic hypoxic respiratory failure #Pulmonary congestion #Moderate Pulmonary effusion #Acute on chronic systolic/Diastolic CHF exacerbation. Oxygen by Oxymizer 8L Telemetry BNP:996.25 ECHo D2 IV Antibiotics: Vancomycin and Cefepime. MedNeb Furosemide 40mg IV daily Blood cultures: Negative at this time Urine culture: oositive for enteroccocus and yeast Sputum culture: negative at this time Pulmonary consult. #Possible DVT #Possible Pulmonary embolus US doppler bilateral lower extremities D-dimer elevated: 4.83 VQ scan: negative for PE #CAD Hold: Eliquis due to hematuria #CKD stage 3b on CHRISTIANE Avoid nephrotoxic drugs Monitor Crea/ BUN #Severe Anemia, Improving Hb:9.8mg/dl FOBT Iron test B12 Type and screen #Generalized weakness likely due to Hypoglycemia Accucheck Dextrose 50ml if blood sugar<60 Resolving #DM type 2 with hyperglycemia Insulin sliding scale HbA1c 9.5% #Obesity 39.5. Counseling about healthy life style DVT prophylaxis: patient on Eliquis was placed on hold due to hematuria. Diet: Cardiac diet Goals of care discussed with the patient for more than 35 minutes: Code Status: Full code PCP: Dr. Kirkpatrick Case discussed with Dr. Garcia Plan discussed with: Patient, Spouse My Orders My Orders Orders - TEVIN GALEANA Procedure Category Date Status Time Urinalysis LAB 03/29/25 Logged 12:28 * Wound Consult CONS 03/29/25 Transmitted Complete Blood Count LAB 03/31/25 Verified 04:00 Basic Metabolic Panel LAB 03/31/25 Verified 04:[address] 03/30/25 Resulted 11:40 * Dietary Consult CONS 03/30/25 Transmitted 14:08 Cleanse Wound With ROCHELLE 03/30/25 In Process Wound Clean 12:23 Date of Service: Mar 30, 2025 Billing Provider: VISHAL GARCIA MD Common Visit Codes: [id number] INP/OBS CARE(HIGH) Date of Service: Mar 30, 2025 Billing Provider: VISHAL GARCIA MD Common Visit Codes: [id number] INP/OBS CARE(HIGH) TEVIN GALEANA Mar 30, 2025 16:57 VISHAL GARCIA MD Mar 30, 2025 20:36
[2025-03-30] MEDS: CEFEPIME 2GM/50ML NS 50 ML IV SCH (18:05)
[2025-03-30] MEDS: LIDOCAINE 5% TOPICAL PATCH TOP ONE (18:30)
[2025-03-30] MEDS: CARVEDILOL 3.125 MG TAB PO SCH (22:01)
[2025-03-31] VITALS (12 sets, daily range): BP systolic 163–184; BP diastolic 77–107; PULSE 76–94; RESP 16–18; TEMP 97.3–98.7; O2SAT 95–98
[2025-03-31] MEDS: LABETALOL HCL 20 MG/4 ML VL IV ONE (04:25)
--- NOTE | 2025-03-31 07:18 | DVHPN2 ---
Progress Note - Dictate Date Seen: Mar 31, 2025 Has the PT tested + for MRSA If YES, has PT been informed?: No Medical Necessity Reason Pt with a Central, PICC or Fol: No vital signs Vital Sign Date Time Temp Pulse Resp B/P (MAP) Pulse Ox O2 Delivery O2 Flow Rate FiO2 03/31/25 06:45 95 Oxymizer 8 N/A 03/31/25 06:17 167/77 03/31/25 05:42 16 03/31/25 05:00 97.3 84 97.3 Total Intake and Output 03/30/25 03/30/25 03/31/25 15:00 23:00 07:00 Intake Total 50 ml 550 ml 500 ml Output Total 750 ml 1200 ml Balance 50 ml -200 ml -700 ml medications Current Medications Medications Dose Ordered Sig/Cayla Route Start Time Stop Time Status Last Admin Dose Admin Hydralazine HCl 10 mg Q6HP PRN IV 03/29/25 02:15 03/31/25 00:46 10 MG Diagnostic Test (Pha) 1 strip ACHS 03/29/25 07:00 03/31/25 06:17 1 STRIP Insulin Human Regular HS SC 03/29/25 22:00 03/30/25 22:07 2 UNITS Insulin Human Regular AC SC 03/29/25 07:00 03/30/25 18:06 3 UNITS Dextrose 50 ml UD PRN IV 03/29/25 02:15 Sodium Chloride 10 ml Q8HR IV 03/29/25 06:00 03/31/25 06:18 10 ML Acetaminophen/ Hydrocodone Bitart 1 tab Q4HP PRN PO 03/29/25 02:15 03/31/25 02:00 1 TAB Ondansetron HCl 4 mg Q4HP PRN IV 03/29/25 02:15 Docusate Sodium 100 mg BIDPRN PRN PO 03/29/25 02:15 Acetaminophen 650 mg Q6HP PRN PO 03/29/25 02:15 Nitroglycerin 0.4 mg Q5MINP PRN SL 03/29/25 04:30 Morphine Sulfate 2 mg Q30M PRN IV 03/29/25 04:30 Vancomycin HCl 0 ml @ 0 mls/hr PER PHARMACY IV 03/29/25 09:30 Albuterol 2.5 mg Q4HPRN PRN NEB 03/29/25 20:45 10/27/25 04:59 2.5 MG Ipratropium [place] 0.5 mg Q4HPRN PRN NEB 03/29/25 20:45 03/30/25 04:58 0.5 MG Furosemide 60 mg BIDD IV 03/30/25 09:45 03/31/25 06:17 60 MG Cefepime HCl 50 ml @ 12.5 mls/hr Q12H IV 03/30/25 18:00 03/31/25 06:16 12.5 MLS/HR Lisinopril 20 mg DAILY PO 03/31/25 10:00 Carvedilol 6.25 mg Q12HR PO 03/30/25 22:00 03/30/25 22:01 6.25 MG laboratory and microbiology Test 03/31/25 05:56 Range/Units Serum Glucose Pending Assessment/Plan The patient is a 79-year-old female known to our clinic who presented to the emergency department on 03/29/2025 for shortness of breath. Notably, she was recently discharged from [facility] three days prior following treatment for pneumonia. Her reports that she was noted to have an oxygen saturation of 81% at home associated with weakness and lethargy. He also stated that he was unaware supplemental oxygen could be used in conjunction with CPAP therapy, which is likely the cause of her hypoxia. Laboratory results revealed hemoglobin 7.5, D-dimer 4.83 (with subsequent bilateral lower extremity Doppler ultrasound negative for DVT), BNP 996.8, potassium 4.2, creatinine 1.94, high-sensitivity troponin 12, with repeat 12, and hemoglobin A1c 9.5%. Iron studies showed serum iron 32 and TIBC 212. Urinalysis was positive for leukocytes. Chest X-ray demonstrated cardiomegaly with mild pulmonary edema and a small right pleural effusion. At present, the patient denies chest pain, shortness of breath, or palpitations. Cardiology was consulted to manage cardiac aspects of care. Past medical history includes coronary artery disease status post prior PCI to the mid LAD; breast cancer status post left mastectomy; diabetes mellitus; hypertension; chronic diastolic heart failure; COPD on home oxygen therapy; peripheral neuropathy; anxiety; depression; GERD; paroxysmal atrial fibrillation on chronic anticoagulation; status post previous hand surgery, hysterectomy, and left mastectomy. Lexiscan stress test (12/11/2023) revealed no evidence of gross ischemia with an ejection fraction of 70%. Echocardiogram ([facility] 01/09/2024): Technically difficult study. Left ventricle demonstrates mildly increased wall thickness with stage I diastolic dysfunction. Right ventricular size and function are normal. Left ventricular ejection fraction (LVEF) is 60% by visual estimation. Right atrium is mildly dilated; mild left atrial dilation is present. Aortic and mitral valves open adequately. Trace mitral regurgitation, trace pulmonic regurgitation, and mild tricuspid regurgitation noted. Estimated RVSP is 24 mmHg. Echocardiogram ([facility] 03/05/2025): Technically difficult study. LVEF is 6570% by visual estimation. Mild left ventricular hypertrophy and stage I diastolic dysfunction are present. Right ventricle is mildly dilated with normal function. Left atrium is severely dilated; moderate right atrial dilation noted. Tricuspid valve demonstrates mild regurgitation with RVSP 55 mmHg. Trace pulmonic regurgitation observed. Mitral valve structure is normal with mildly restricted motion and mild leaflet thickening. There is moderate posterior mitral annular calcification and mild mitral regurgitation without evidence of mitral stenosis or aortic stenosis. Echocardiogram ([facility] 03/29/2025): LVEF 60% by visual estimation. Severe mitral annular calcification is noted with moderate mitral stenosis and a mean transmitral gradient of 5 mmHg. Left atrium is enlarged. [id number] tricuspid regurgitation is present. V/Q scan: Low probability for PE. Assessment: Coronary artery disease, status post prior PCI to mid LAD; no ischemia on Lexiscan (12/11/2023) Elevated BNP consistent with mild volume overload and diastolic dysfunction Anemia, likely secondary to iron deficiency (iron 32, TIBC 212) Moderate mitral stenosis secondary to severe mitral annular calcification Acute on chronic diastolic heart failure with preserved ejection fraction Chronic kidney disease with acute kidney injury (creatinine 1.94) Severe left atrial enlargement and moderate tricuspid regurgitation. Paroxysmal atrial fibrillation on chronic anticoagulation History of breast cancer status post mastectomy Diabetes mellitus with A1c 9.5% COPD on home oxygen therapy Small right pleural effusion Hypertension Abnormal D-Dimer Hypertensive urgency Cardiology Recommendations: Given the elevated creatinine, a VQ scan is recommended to rule out pulmonary embolism in the presence of an elevated D-dimer and to avoid further nephrotoxic contrast exposure (V/Q scan was low probability for PE). Optimize guideline- directed medical therapy (GDMT) for heart failure with preserved ejection fraction. Diurese as tolerated to improve volume status, given elevated BNP and mild pulmonary edema. Monitor renal function and electrolytes closely during diuresis. Continue supplemental oxygen with CPAP at night; patient and spouse educated regarding concurrent use. Address anemia: findings are consistent with iron deficiency anemia (iron 32, TIBC 212). Recommend initiation of iron supplementation and further workup for chronic blood loss or nutritional deficiency as clinically indicated. Maintain rate and rhythm control for atrial fibrillation; continue chronic anticoagulation unless contraindicated. Optimize control of hypertension and diabetes mellitus. Reassess volume status, BNP, and renal function daily to guide further diuretic therapy.Recognizing presentation/recent NST finding, ACS at this point is not considered. As ACS is not considered, no indication warranted for ischemic workup at present time. BP was elevated and its control is advised. Proceed with close observation for overt signs of fluid overload Proceed with strict intakes, outputs, and daily weights Proceed with close rate and rhythm surveillance Proceed with close hemodynamic surveillance Proceed with optimized blood pressure control Transfuse to sustain HGB levels above 7.0 Sustain Magnesium level greater than 2.0 Sustain Potassium level greater than 4.0 Follow up renal function and electrolytes IV lasix: 60 mg IV BID Add Amlodipine: 5 mg daily Management in Telemetry Will proceed to follow from a cardiac perspective Further recommendations per clinical progression All available labs, EKGs, and images were personally reviewed Plan of care discussed with and agreed upon by patient/family/Primary RN. Prognosis: Guarded Thank you for allowing me to participate in the care of this patient. Further recommendations will depend on clinical progression, hospitalist, and other c onsultants. Will continue to follow with Primary. If you have any questions, please do not hesitate to contact me. A total of 55 minutes was spent reviewing the patient record, examining the patient, making a diagnostic and therapeutic plan, discussing this plan with medical personnel, following up on diagnostic studies and following the patient for clinical stability excluding any and all procedures. At least 50% of this time was spent in direct, [id number] contact. Plan discussed with: Patient, Other (nurse) JORGE ESPOSITO MD Mar 31, 2025 07:18
[2025-03-31 07:21] LABS: Hematocrit 29.7 % (36.0-46.0); Hemoglobin 9.8 g/dL (12.2-16.2); Mean Corpuscular Hemoglobin 28.7 pg (28.0-32.0); Mean Corpuscular Volume 86.7 fL (80.0-100.0); Nucleated Red Blood Cells % 0.1 %
[2025-03-31 07:43] LABS: Chloride 95 mmol/L (98-107); Potassium 3.3 mmol/L (3.5-5.1); Sodium 140 mmol/L (136-145)
[2025-03-31 07:44] LABS: Anion Gap 11 (5-15)
[2025-03-31 07:49] LABS: BUN/Creatinine Ratio 25.8 (10.0-20.0)
[2025-03-31 07:50] LABS: Carbon Dioxide 34 mmol/L (20-31); Glucose 114 mg/dL (74-106)
[2025-03-31 07:51] LABS: Blood Urea Nitrogen 32 mg/dL (9-23); Calcium 8.7 mg/dL (8.7-10.4)
[2025-03-31] MEDS: LISINOPRIL 20 MG TAB PO SCH (09:03)
[2025-03-31] MEDS: LIDOCAINE 5% TOPICAL PATCH TOP ONE (09:20)
--- NOTE | 2025-03-31 09:27 | MEDREC ---
[facility] ASP Intervention Section I Assessment of apprpriate abx f: Empiric treatment of MRSA (MRSA negative, please consider stopping vancomycin for treating pneumonia) MORENO DENNIS [facility] RESIDENT Mar 31, 2025 09:27
--- NOTE | 2025-03-31 10:09 | DVHPNRES ---
Progress Note Date Seen: Mar 31, 2025 Resident Creating Document: TEVIN GALEANA RESIDENT Has the PT tested + for MRSA If YES, has PT been informed?: No Medical Necessity Reason Pt with a Central, PICC or Fol: No Subjective Review of Systems Carlene Velez is a 79-year-old female with past medical history of breast cancer (2022), DM2, hypertension, CHF, depression, coronary artery disease, and chronic kidney failure. The patient came to the ED with chief complaint of 1 day of shortness of breaths. The patient's reports that patient has recently discharged from [facility] 3 days ago for pneumonia. The EMS report the patient was on respiratory distress, O2 saturation 81%, weakness, lethargic, blood sugar of 39 and was given D50 EN route to the ED for further evaluation. Patient was seen and evaluated in the ED, laboratory data shows WBC 8.6, hemoglobin 8.9, hematocrit 27.7, platelets 164, sodium 134, potassium 5.0, BUN 48, creatinine 1.94, glucose 197, calcium 8.2, alkaline phos 141, BNP 996.88, troponin 12, albumin 3.1, blood pressure 117/55, heart rate 68, temperature 98.1 F, O2 saturation 97% on non-rebreather. Chest x-ray revealing cardiomegaly with mild pulmonary edema and small right pleural effusion. Patient was started on IV Lasix, please see medication orders section in the computer. On admission assessment, the patient denies chest pain, no dizziness, headache, diaphoresis, currently on non-rebreather, no diarrhea, nausea, vomiting, fever, no chills. Patient was admitted for further evaluation and medical management. Past Medical History Hypertension, Diabetes, DM, HTN, Chronic kidney failure, CHF, Depression, Coronary artery disease, Breast cancer 2022 Past Surgical History Coronary stents, Left mastectomy 2022, PTCA Family History Reviewed, noncontributory to the management of this case. Past Social History The patient lives at home, denies smoking, alcohol or illicit drugs abuse. Admission Course: On 03/29/25, the patient was evaluated at bedside, VS, labs and chart was reviewed. The patient is alert, no oriented, short responses, confused. The patient with O2 via oxymizer at 5L with O2sat at 94% . Labs report severe anemia 7.5mg/dl, Lactic acid 0.4, UA is positive for UTI, D-dimer is elevated. DVT US doppler was ordered. Creatinine is 1.46. Jerome was draining pink-elaina urine, new UA was ordered. Due to Hb is trending down a rectal exam was performed with server systems administrator ( LILI Petersen), and FOBT sample was sent to the lab. Cultures were ordered: Urine, blood and sputum. The patient was started on Vancomycin and cefepime IV. The patient continues with furosemide 40mg IV. ECHo report is pending at this time. We will continue following this patient progress closely. On 03/30/25, the patient was re-evaluated and examined at bedside. VS, labs and chart was reviewed at bedside. The patient is still on oxymizer at 8L. BP is in the upper side. Due to improved on creatinine lisinopril was added, carvedilol dose was increased to 6.25mg. WBC are 9.1. Patient is on Vancomycin and Cefepime. VQ scan was negative for PE. Chest CT scan showed: Moderate right pleural effusion which appears to be loculated. Left lower lobe atelectasis/consolidation. Right middle lobe and right lower lobe compressive atelectasis. Diffuse interlobular septal thickening. This is likely related to CHF. Cardiomegaly. Pulmonary consult was placed. Hematuria was noted from the Jerome catheter. Eliquis was stopped by cardiology (Dr. Zimmerman). The patient reports today dyspnea and back pain. Pain is been management with [place] 5/325mg. I spoke with the patient's and addressed his questions and concerns. We will continue following up this patient progress closely. On 03/31/25, the patient was re-evaluated and examined at bedside. VS, labs and chart was reviewed at bedside. The patient is still on oxymizer at 8L. Pulmonology is on board, they will perform a thoracocentesis, consent was obtained. WBC are 9.8. Hb is improving. Hematuria has stopped. The patient continues with Vancomycin and Cefepime. The patient complains of back pain, her pain is been management with [place] 5/325mg. I spoke with the patient's and addressed his questions and concerns. We will continue following up this patient progress closely. ROS: Constitutional: Yes: general Weakness; No: Fever, Chills, Sweats, Malaise Eyes: No: Pain, Vision change, Conjunctivae inflammation, Eyelid inflammation, Other, Redness ENT: No: Ear pain, Ear discharge, Nose pain, Nose discharge, Nose congestion, Mouth pain, Mouth swelling, Throat pain, Throat swelling, Other Respiratory: Shortness of breath, (SOB at rest); No: Cough, Dry, SOB with excertion, Wheezing, Hemoptysis, Pleuritic Pain, Sputum, Wheezing Cardiovascular: No: Chest Pain, Palpitations, Orthopnea, Paroxysmal Noc. Dyspnea, Edema, Lt Headedness, Other Gastrointestinal: No: Nausea, Vomiting, Abdominal Pain, Diarrhea, Constipation, Melena, Hematochezia, Other Genitourinary: No Dysuria, No Frequency, No Incontinence, No Hematuria, No Retention, No Other Musculoskeletal: Back pain No: other, neck pain, shoulder pain, arm pain, hand pain, leg pain, foot pain Skin: No: Rash, Lesions, Jaundice, Bruising, Other Neurological: No: Weakness, Numbness, Incoordination, Change in speech, Confusion, Seizures, Other Coded Allergies: NO KNOWN ALLERGIES (Unverified , 01/28/17) Objective vital signs Vital Sign Date Time Temp Pulse Resp B/P (MAP) Pulse Ox O2 Delivery O2 Flow Rate FiO2 03/31/25 09:04 179/85 03/31/25 09:02 81 03/31/25 09:00 98.3 17 98 98.3 03/31/25 06:45 Oxymizer 8 N/A Total Intake and Output 03/30/25 03/30/25 03/31/25 15:00 23:00 07:00 Intake Total 50 ml 550 ml 500 ml Output Total 750 ml 1200 ml Balance 50 ml -200 ml -700 ml medications Current Medications Medications Dose Ordered Sig/Cayla Route Start Time Stop Time Status Last Admin Dose Admin Hydralazine HCl 10 mg Q6HP PRN IV 03/29/25 02:15 03/31/25 00:46 10 MG Diagnostic Test (Pha) 1 strip ACHS 03/29/25 07:00 03/31/25 06:17 1 STRIP Insulin Human Regular HS SC 03/29/25 22:00 03/30/25 22:07 2 UNITS Insulin Human Regular AC SC 03/29/25 07:00 03/30/25 18:06 3 UNITS Dextrose 50 ml UD PRN IV 03/29/25 02:15 Sodium Chloride 10 ml Q8HR IV 03/29/25 06:00 03/31/25 06:18 10 ML Acetaminophen/ Hydrocodone Bitart 1 tab Q4HP PRN PO 03/29/25 02:15 03/31/25 09:00 1 TAB Ondansetron HCl 4 mg Q4HP PRN IV 03/29/25 02:15 Docusate Sodium 100 mg BIDPRN PRN PO 03/29/25 02:15 Acetaminophen 650 mg Q6HP PRN PO 03/29/25 02:15 Nitroglycerin 0.4 mg Q5MINP PRN SL 03/29/25 04:30 Morphine Sulfate 2 mg Q30M PRN IV 03/29/25 04:30 Vancomycin HCl 0 ml @ 0 mls/hr PER PHARMACY IV 03/29/25 09:30 Albuterol 2.5 mg Q4HPRN PRN NEB 03/29/25 20:45 03/30/25 04:59 2.5 MG Ipratropium [place] 0.5 mg Q4HPRN PRN NEB 03/29/25 20:45 03/30/25 04:58 0.5 MG Cefepime HCl 50 ml @ 12.5 mls/hr Q12H IV 03/30/25 18:00 03/31/25 06:16 12.5 MLS/HR Lisinopril 20 mg DAILY PO 03/31/25 10:00 03/31/25 09:03 20 MG Carvedilol 6.25 mg Q12HR PO 03/30/25 22:00 03/31/25 09:02 6.25 MG Amlodipine Besylate 5 mg DAILY PO 03/31/25 10:00 03/31/25 09:04 5 MG Furosemide 60 mg BIDD IV 03/31/25 18:00 Examination General Appearance: Alert, lethargic, oriented in person, place and time. Cooperative, with Oxygen oxymizer at 8L with O2sat at 96% HEENT: Atraumatic, PERRLA, EOMI, Mucous membr. moist/pink Respiratory: Reduced right lung expansion. Reduced bilateral lung sounds, more in the left, crackles in the bases. Cardiovascular: Regular rate, Normal S1, Normal S2, No murmurs Abdominal: Normal bowel sounds, Soft, No tenderness, No hepatospenomegaly, No masses Extremities: No clubbing, No cyanosis, No edema, Normal pulses, No tenderness/swelling. ecchymosis in right upper arm : clean urine coming out of the Jerome catheter. Skin: No rashes, No significant lesion Neuro: Generalized weakness has improved laboratory and microbiology Laboratory Tests 03/31/25 05:56 Test 03/31/25 05:56 Range/Units Serum Glucose 114 H 74-106 mg/dL Microbiology Date/Time Source Procedure Growth Status 03/29/25 12:28 Nose MRSA Screen - Final Complete 03/29/25 12:27 Voided Urine Urine Culture - Preliminary Resulted 03/29/25 01:30 Blood Blood Culture - Preliminary NO GROWTH AFTER 48 HOURS OF INCUBATION. Resulted Problem List/Assessment/Plan Problem List/Assessment/Plan #Sepsis likely due to Pneumonia, gram +/- #Acute on chronic hypoxic respiratory failure #Pulmonary congestion #Moderate Pulmonary effusion #Acute on chronic systolic/Diastolic CHF exacerbation. Oxygen by Oxymizer 8L Telemetry BNP:996.25 ECHo D2 IV Antibiotics: Vancomycin and Cefepime. MedNeb Furosemide 40mg IV daily Blood cultures: Negative at this time Urine culture: oositive for enteroccocus and yeast Sputum culture: pending Pulmonary consult: thoracocentesis, consent was obtained. #Possible DVT #Possible Pulmonary embolus. Ruled out. US doppler bilateral lower extremities D-dimer elevated: 4.83 VQ scan: negative for PE #CAD Hold: Eliquis due to hematuria #CKD stage 3b on CHRISTIANE Avoid nephrotoxic drugs Monitor Crea/ BUN #Severe Anemia, Improving Hb:9.8mg/dl FOBT: pending result. Iron test B12 Type and screen #Generalized weakness likely due to Hypoglycemia Accucheck Dextrose 50ml if blood sugar<60 Resolving #DM type 2 with hyperglycemia Insulin sliding scale HbA1c 9.5% #Obesity 39.5. Counseling about healthy life style DVT prophylaxis: patient on Eliquis was placed on hold due to hematuria. Diet: Cardiac diet Goals of care discussed with the patient for more than 35 minutes: Code Status: Full code PCP: Dr. Kirkpatrick Case discussed with Dr. Garcia Plan discussed with: Patient, Spouse My Orders My Orders Orders - TEVIN GALEANA RESIDENT Procedure Category Date Status Time Chest Without Contrast CT 03/30/25 Resulted 11:40 * Dietary Consult CONS 03/30/25 Transmitted 14:08 Cleanse Wound With ROCHELLE 03/30/25 In Process Wound Clean 12:23 *Consult CONS 03/30/25 Transmitted 17:00 Lisinopril Tablet PHA 03/31/25 In Process (Zestril Tablet) 10:00 Carvedilol Tablet PHA 03/30/25 In Process (Coreg Tablet) 22:00 Potassium Effervesent PHA 03/31/25 Logged Tab (Klor-Con/Ef) 10:15 Complete Blood Count LAB 04/01/25 Verified 04:00 Basic Metabolic Panel LAB 04/01/25 Verified 04:00 Date of Service: Mar 31, 2025 Billing Provider: VISHAL GARCIA MD Common Visit Codes: [id number] INP/OBS CARE(HIGH) TEVIN GALEANA RESIDENT Mar 31, 2025 10:09 VISHAL GARCIA MD Apr 01, 2025 21:53
--- NOTE | 2025-03-31 10:57 | CONS ---
Pharmacy Clinical Information: From Heart Failure Fallout Report on CQM Application, Carlene Alamo is a 79 year old female with PMH of CHF, HTN, DM, chronic kidney failure, depression, CAD, and breast cancer His home medications for heart failure include carvedilol, empagliflozin, and azilsartan medoxomil-chlorthalidone His inpatient medications for heart failure include carvedilol, and lisinopril In accordance with the 2021 AHA/ACC/HFSA Heart Failure Guidelines, a mineralocorticoid receptor antagonist (MRA) such as spironolactone or eplerenone and SGLT2 should be initiated in patients with HFrEF to reduce cardiovascular mortality and heart failure hospitalization MORENO DENNIS [facility] RESIDENT Mar 31, 2025 10:56
[2025-03-31] MEDS: POTASSIUM EFFERVESENT TAB 25 MEQ GT ONE (12:20)
[2025-03-31] MEDS: ONDANSETRON HCL 4 MG/2 ML VIAL IV ONE (13:15)
[2025-03-31] MEDS: HYDROmorphone HCL 2 MG/ML VL/or syr IV ONE (13:16)
[2025-03-31] MEDS: hydrALAZINE HCL 20 MG/ML VL IV ONE (13:36)
[2025-03-31 13:47] LABS: INR 2.41 (0.9-1.15); Prothrombin Time 23.4 sec (9.3-11.8)
[2025-03-31] MEDS: FUROSEMIDE 100 MG/10ML VIAL IV SCH (17:51)
[2025-03-31] MEDS: ONDANSETRON HCL 4 MG/2 ML VIAL IV PRN (20:40)
[2025-03-31] MEDS: LINEZOLID 600MG/300ML 300 ML IV SCH (22:33)
--- NOTE | 2025-03-31 22:33 | DVHPN2 ---
[facility] DOS: 03/31/2025 Patient seen and examined at bedside. Remains on supplemental oxygen Overnight events reviewed. Changes from previous H/P or p: No Changes Eyes: No Pain, No Vision change, No Conjunctivae inflammation, No Eyelid inflammation, No Other, No Redness ENT: No Ear pain, No Ear discharge, No Nose pain, No Nose discharge, No Nose congestion, No Mouth pain, No Mouth swelling, No Throat pain, No Throat swelling, No Other Cardiovascular: No Chest Pain, No Palpitations, No Orthopnea, No Paroxysmal Noc. Dyspnea, No Edema, No Lt Headedness, No Other Respiratory: No Cough, No Dry; Shortness of breath; No SOB with excertion, No Wheezing, No Hemoptysis, No Pleuritic Pain, No Sputum; Other (SOB at rest) Gastrointestinal: No Nausea, No Vomiting, No Abdominal Pain, No Diarrhea, No Constipation, No Melena, No Hematochezia, No Other Genitourinary: No Dysuria, No Frequency, No Incontinence, No Hematuria, No Retention, No Other Musculoskeletal: No other, No neck pain, No shoulder pain, No arm pain, No back pain, No hand pain, No leg pain, No foot pain Skin: No Rash, No Lesions, No Jaundice, No Bruising, No Other Objective Vitals Vital Signs Date Time Temp Pulse Resp B/P (MAP) Pulse Ox O2 Delivery O2 Flow Rate FiO2 03/31/25 21:00 98.2 86 18 163/79 (107) 96 98.2 03/31/25 08:00 Oxymizer 8 N/A Intake/Output Intake and Output 03/31/25 06:59 Intake Total 1100 ml Output Total 1950 ml Balance -850 ml Intake Oral 800 ml IV Total 300 ml Output Urine Total 1950 ml Exam Gen.: Patient lying in bed in no apparent distress. On supplemental oxygen. Head: Normocephalic, atraumatic. Eyes: EOMI/PERRLA. Ears: Normal hearing. Normal anatomy. Neck/trachea: Trachea midline, supple. Nose: Normal external anatomy. Mouth: Moist mucous membranes. Chest: Decreased air entry bilaterally. No wheezing or rhonchi. Cardiovascular: Positive S1, positive S2. Regular rate and rhythm. Abdomen: Positive bowel sounds in all 4 quadrants. Soft, non-tender, non- distended. : Deferred. Rectal: Deferred. Skin: Warm, dry. Intact. Extremities: 2+ radial pulses bilaterally. No lower extremity edema. Neuro: Awake, alert, oriented x3. No gross motor or sensory deficits. Cranial nerves II through XII intact. Gait not assessed. Medications Current Medications Medications Dose Ordered Sig/Cayla Route Start Time Stop Time Status Last Admin Dose Admin Hydralazine HCl 10 mg Q6HP PRN IV 03/29/25 02:15 03/31/25 00:46 Diagnostic Test (Pha) 1 strip ACHS 03/29/25 07:00 03/31/25 22:29 Insulin Human Regular HS SC 03/29/25 22:00 03/31/25 22:28 Insulin Human Regular AC SC 03/29/25 07:00 03/31/25 17:48 Dextrose 50 ml UD PRN IV 03/29/25 02:15 Sodium Chloride 10 ml Q8HR IV 03/29/25 06:00 03/31/25 13:38 Acetaminophen/ Hydrocodone Bitart 1 tab Q4HP PRN PO 03/29/25 02:15 03/31/25 20:41 Ondansetron HCl 4 mg Q4HP PRN IV 03/29/25 02:15 03/31/25 20:40 Docusate Sodium 100 mg BIDPRN PRN PO 03/29/25 02:15 Acetaminophen 650 mg Q6HP PRN PO 03/29/25 02:15 Nitroglycerin 0.4 mg Q5MINP PRN SL 03/29/25 04:30 Morphine Sulfate 2 mg Q30M PRN IV 03/29/25 04:30 Albuterol 2.5 mg Q4HPRN PRN NEB 03/29/25 20:45 03/30/25 04:59 Ipratropium [place] 0.5 mg Q4HPRN PRN NEB 03/29/25 20:45 03/30/25 04:58 Cefepime HCl 50 ml @ 12.5 mls/hr Q12H IV 03/30/25 18:00 03/31/25 17:43 Lisinopril 20 mg DAILY PO 03/31/25 10:00 03/31/25 09:03 Carvedilol 6.25 mg Q12HR PO 03/30/25 22:00 03/31/25 09:02 Amlodipine Besylate 5 mg DAILY PO 03/31/25 10:00 03/31/25 09:04 Furosemide 60 mg BIDD IV 03/31/25 18:00 03/31/25 17:51 Linezolid 300 ml @ 150 mls/hr Q12HR IV 03/31/25 22:00 Laboratory Results Laboratory Tests 03/31/25 05:56 Chemistry Test 03/31/25 05:56 Calcium Level 8.7 mg/dL (8.7-10.4) Coagulation Test 03/31/25 13:14 Prothrombin Time 23.4 sec (9.3-11.8) H Prothrombin Time INR 2.41 (0.9-1.15) H Urinalysis Test 03/29/25 04:30 Urine Color Dark yellow (Yellow) Urine Clarity Ex.turbid (Clear) Urine pH 5.5 (5.0-9.0) Urine Specific [place] 1.010 (1.001-1.035) Urine Protein 1+ (Negative) H Urine Ketones Negative (Negative) Urine Blood 2+ /uL (Negative) H Urine Nitrite Negative (Negative) Urine Bilirubin Negative (Negative) Urine Urobilinogen Normal mg/dL (Negative) Urine Leukocyte Esterase 3+ /uL (Negative) Urine RBC 96 /hpf (0 - 4) Urine WBC Clumps Present /hpf (None Seen) Urine Microscopic WBC 2737 /HPF (0-5) H Urine Squamous Epithelial Cells None seen /hpf (<5) Urine Bacteria None seen /hpf (None Seen) Urine Yeast (Budding) Loaded /hpf (None Seen) Urine Glucose Normal mg/dL (Normal) Microbiology Microbiology Date/Time Source Procedure Growth Status 03/29/25 12:28 Nose MRSA Screen - Final Complete 03/29/25 12:27 Voided Urine Urine Culture - Final Enterococcus faecium - VRE Complete 03/29/25 01:30 Blood Blood Culture - Preliminary NO GROWTH AFTER 48 HOURS OF INCUBATION. Resulted Assessment/Plan Assessment/Plan Impression: Acute hypoxic respiratory failure Dependence on supplemental oxygen Loculated pleural effusion Atelectasis Obesity, BMI 36.3 Events: Remains on supplemental oxygen Currently on 8 LPM Oxymizer Improving O2 requirements (down from 10 LPM Oxymizer) Continue to taper O2 as tolerated. Limited chest U/S revealed pleural effusion not amenable to thoracentesis Continue diuresis with Lasix Monitor renal function. Monitor electrolytes. Supplement as necessary. Continue bronchodilators Continue antibiotics Incentive spirometry V/Q scan shows low probability for PE. Labs and imaging reviewed. Rest of plan as noted below. Plan: Supplemental oxygen Titrate to keep O2 sats above 92%. Chest CT revealed moderate right pleural effusion which appears to be loculated. Left lower lobe atelectasis/consolidation. Right middle lobe and right lower lobe compressive atelectasis. Findings c/w CHF. Continue bronchodilators. Continue antibiotics Incentive spirometry Diurese with Lasix Monitor renal function. Monitor electrolytes. Supplement as necessary. Monitor ins and outs. Recommend diet and lifestyle modifications for weight reduction Obesity complicates all care DVT prophylaxis. Prognosis: Poor given patient's multiple co-morbidities. Rest of plan per hospitalist and other consultants. Thank you, Dr. Howard, for allowing me to participate in this patient's care. Further recommendations will depend on the patient's clinical course. Please do not hesitate to contact me if you have any questions or concerns. This medical document was created using an electronic medical record system with iHigh dictation system. Although these documentations are being carefully reviewed, there may still be some phonetic and typographical changes. The errors are purely typographical, due to imperfection on the software program, and do not reflect any compromise in the patient's medical care. Plan discussed with: Patient, Other (LILI Capone) Visit Coding Pulmonary Billing Provider: JAN GONCALVES MD Date of Service if different f: Mar 31, 2025 Common Visit Codes: [id number] INP/OBS CARE(HIGH) JAN GONCALVES MD Mar 31, 2025 22:33
--- NOTE | 2025-03-31 22:33 | DVHINCON2 ---
Date of service: Mar 30, [address] Howard[address] [facility] Reason for Consultation Acute hypoxic respiratory failure and pleural effusion. History of Present Illness A 79-year-old woman with past medical history of DM, hypertension, breast cancer, CHF, CAD and chronic kidney failure who presented to ED on 03/29/25 with complaint of shortness of breath. Pt was recently discharged from [facility] 3 days prior after treatment for pneumonia. However, patient was noted to be in respiratory distress, O2 saturation 81%, with weakness, lethargy, blood sugar of 39 and was given D50 en route to the ED for further evaluation. Patient was seen and evaluated in the ED. Workup shows WBC 8.6, hemoglobin 8.9, hematocrit 27.7, platelets 164, sodium 134, potassium 5.0, BUN 48, creatinine 1.94, glucose 197, calcium 8.2, alkaline phos 141, BNP 996.88, troponin 12, albumin 3.1. Initial vitals were blood pressure 117/55, heart rate 68, temperature 98.1 F, O2 saturation 97% on non-rebreather. Chest x-ray revealing cardiomegaly with mild pulmonary edema and small right pleural effusion. Patient was admitted for further care. Pulmonary consultation is requested for evaluation and management of acute hypoxic respiratory failure and pleural effusion. Review of Systems: 14-point review of systems negative unless otherwise noted above. Past Medical History Hypertension, diabetes mellitus, chronic kidney failure, CHF, depression, coronary artery disease, breast cancer Past Surgical History Coronary stents, Left mastectomy in 2022, PTCA Medications: Reviewed. Allergies: No known drug allergies. Family History: Heart disease, DM, hypertension. Social History: Nonsmoker. No alcohol or illicit drug use. Family History: Diabetes mellitus G8 MOTHER, G8 FATHER Hypertension G8 MOTHER, G8 FATHER Ischemic heart disease Allergies: Coded Allergies: NO KNOWN ALLERGIES (Unverified , 01/28/17) Home Meds Reported Medications Levorphanol Tartrate (Levorphanol Tartrate) 2 Mg Tab, 1 TAB PO BID for 30 Days, #60 03/31/25 Pravastatin Sodium (PRAVACHOL TABLET) 20 Mg Tb, 40 MG PO DAILY for 90 Days, #90 03/31/25 Hydralazine Hcl (Hydralazine Hcl) 50 Mg Tab, 1 TAB PO TID for 90 Days, #270 03/31/25 Lidocaine (Ztlido) 1.8 % Pad, 1-2 PATCH EXT DAILY for 30 Days, #60 APPLY 1-2 PATCHES REMOVE AFTER 12 HOURS EXTERNALLY ONCE A DAY. 03/31/25 Tramadol Hcl (Tramadol Hcl) 50 Mg Tab, 1 TAB PO TID PRN for PAIN for 30 Days, #90 03/31/25 Losartan Potassium (Losartan Potassium) 50 Mg Tab, 1 TAB PO DAILY for 90 Days, #90 03/31/25 Alprazolam (Alprazolam) 0.25 Mg Tab, 1 TAB PO DAILY for 30 Days, #30 03/31/25 Fzqqpuzgcib-Vliwxspmrltb-Tczzm (Trelegy Ellipta 100-62.5-25 Mcg/INH) 1 Aer Aer, 1 PUFF INH DAILY for 30 Days, #60 03/31/25 Hydroxyzine Hcl (Hydroxyzine Hcl) 25 Mg Tab, 1 TAB PO DAILY for 30 Days, #30 03/31/25 Pantoprazole Sodium Sesquihydr (Pantoprazole Sodium Dr) 40 Mg Tab, 1 TAB PO DAILY for 90 Days, #90 03/31/25 Potassium Chloride (Potassium Chloride ER) 10 Meq Tab, 1 TAB PO DAILY for 90 Day s, #90 03/31/25 Anastrozole (Anastrozole) 1 Mg Tab, 1 TAB PO DAILY for 90 Days, #90 03/31/25 Furosemide (Furosemide) 40 Mg Tab, 1 TAB PO BID for 30 Days, #60 03/31/25 Carvedilol (Carvedilol) 12.5 Mg Tab, 1 TAB PO BID for 30 Days, #60 03/31/25 Finerenone (Kerendia) 20 Mg Tab, 1 TAB PO DAILY for 30 Days, #30 03/31/25 Magnesium Oxide (MAGNESIUM OXIDE) 400 Mg Tab, 1 TAB PO DAILY for 120 Days, #120 10/20/23 Escitalopram Oxalate (ESCITALOPRAM OXALATE) 20 Mg Tab, 1 TAB PO BID for 90 Days, #90 10/20/23 Empagliflozin (Jardiance) 10 Mg Tab, 1 TAB PO DAILY for 30 Days, #30 10/20/23 Nifedipine (Nifedipine Er) 30 Mg Tab, 1 TAB PO DAILY for 90 Days, #90 10/20/23 Apixaban Base (ELIQUIS) 2.5 Mg Tab, 1 TAB PO BID for 30 Days, #60 10/20/23 Ropinirole Hydrochloride (Ropinirole Hcl) 0.5 Mg Tab, 1 TAB PO DAILY for 90 D ays, #90 10/20/23 Clonidine Hydrochloride (Clonidine Hcl) 0.1 Mg Tab, 1 TAB PO TID for 90 Days, #270 01/28/17 Current Medications Current Medications Medications (Trade) Dose Ordered Sig/Cayla Route PRN Reason Start Time Stop Time Status Last Admin Lisinopril (Zestril Tablet) 20 mg DAILY PO 03/31/25 10:00 03/31/25 09:03 Amlodipine Besylate (Norvasc Tablet) 5 mg DAILY PO 03/31/25 10:00 03/31/25 09:04 Furosemide (Lasix Injection) 60 mg BIDD IV 03/31/25 18:00 03/31/25 17:51 Linezolid 300 ml @ 150 mls/hr Q12HR IV 03/31/25 22:00 Vital Signs Vital Signs Date Time Temp Pulse Resp B/P (MAP) Pulse Ox O2 Delivery O2 Flow Rate FiO2 03/31/25 21:00 98.2 86 18 163/79 (107) 96 98.2 03/31/25 08:00 Oxymizer 8 N/A Physical Exam Gen.: Patient lying in bed in no apparent distress. On supplemental oxygen. Head: Normocephalic, atraumatic. Eyes: EOMI/PERRLA. Ears: Normal hearing. Normal anatomy. Neck/trachea: Trachea midline, supple. Nose: Normal external anatomy. Mouth: Moist mucous membranes. Chest: Decreased air entry bilaterally. No wheezing or rhonchi. Cardiovascular: Positive S1, positive S2. Regular rate and rhythm. Abdomen: Positive bowel sounds in all 4 quadrants. Soft, non-tender, non- distended. : Deferred. Rectal: Deferred. Skin: Warm, dry. Intact. Extremities: 2+ radial pulses bilaterally. No lower extremity edema. Neuro: Awake, alert, oriented x3. No gross motor or sensory deficits. Cranial nerves II through XII intact. Gait not assessed. Labs/Diagnostic Data Labs Test 03/31/25 21:19 03/31/25 13:14 03/31/25 05:56 03/30/25 05:54 Range/Units POC Glucose 234 H 70-106 mg/dl Prothrombin Time 23.4 H 9.3-11.8 sec Prothrombin Time INR 2.41 H 0.9-1.15 White Blood Count 9.8 4.4-10.8 10^3/uL Red Blood Count 3.42 L 4.0-5.20 10^6/uL Hemoglobin 9.8 L 12.2-16.2 g/dL Hematocrit 29.7 L 36.0-46.0 % Mean Corpuscular Volume 86.7 80.0-100.0 fL Mean Corpuscular Hemoglobin 28.7 28.0-32.0 pg Mean Corpuscular Hemoglobin Concent 33.1 32.0-36.0 g/dL Red Cell Distribution Width 13.6 11.8-14.3 % Platelet Count 176 140-450 10^3/uL Mean Platelet Volume 8.3 6.9-10.8 fL Neutrophils (%) (Auto) 80.1 H 37.0-80.0 % Lymphocytes (%) (Auto) 10.0 10.0-50.0 % Monocytes (%) (Auto) 8.1 0.0-12.0 % Eosinophils (%) (Auto) 1.2 0.0-7.0 % Basophils (%) (Auto) 0.6 0.0-2.0 % Neutrophils # (Auto) 7.8 1.6-8.6 10 ^3/uL Lymphocytes # (Auto) 1.0 0.4-5.4 10 ^3/uL Monocytes # (Auto) 0.8 0-1.3 10 ^3/uL Eosinophils # (Auto) 0.1 0-0.8 10 ^3/uL Basophils # (Auto) 0.1 0-0.2 10 ^3/uL Nucleated Red Blood Cells 0.1 % Sodium Level 140 136-145 mmol/L Potassium Level 3.3 L 3.5-5.1 mmol/L Chloride Level 95 L 98-107 mmol/L Carbon Dioxide Level 34 H 20-31 mmol/L Anion Gap 11 5-15 Blood Urea Nitrogen 32 #H 9-23 mg/dL Creatinine 1.24 H 0.550-1.02 mg/dL Glomerular Filtration Rate Calc 45 >90 mL/min BUN/Creatinine Ratio 25.8 H 10.0-20.0 Serum Glucose 114 H 74-106 mg/dL Calcium Level 8.7 8.7-10.4 mg/dL Random Vancomycin Level 22.3 H 5-10 ug/mL Total Bilirubin 0.3 0.2-1.0 mg/dL Aspartate Amino Transferase (AST) 17 13-40 U/L Alanine Aminotransferase (ALT) < 9 7-40 U/L Alkaline Phosphatase 143 H 46-116 U/L Total Protein 6.6 5.7-8.2 g/dL Albumin 3.1 L 3.2-4.8 g/dL Test 03/29/25 13:27 03/29/25 10:24 03/29/25 04:30 03/29/25 02:12 Range/Units D-Dimer, Quantitative 4.83 H 0.0-0.49 mg/L FEU Urine Color Dark yellow Yellow Urine Clarity Ex.turbid Clear Urine pH 5.5 5.0-9.0 Urine Specific [place] 1.010 1.001-1.035 Urine Protein 1+ H Negative Urine Ketones Negative Negative Urine Blood 2+ H Negative /uL Urine Nitrite Negative Negative Urine Bilirubin Negative Negative Urine Urobilinogen Normal Negative mg/dL Urine Leukocyte Esterase 3+ Negative /uL Urine RBC 96 0 - 4 /hpf Urine WBC Clumps Present None Seen /hpf Urine Microscopic WBC 2737 H 0-5 /HPF Urine Squamous Epithelial Cells None seen <5 /hpf Urine Bacteria None seen None Seen /hpf Urine Yeast (Budding) Loaded None Seen /hpf Urine Glucose Normal Normal mg/dL Troponin I High Sensitivity 12 </=34 ng/L Test 03/29/25 01:22 03/29/25 01:12 Range/Units Lactic Acid Level 0.4 0.4-2.0 mmol/L Iron Level 32 L 50-170 ug/dL Total Iron Binding Capacity 212 L 250-425 ug/dL Percent Iron Saturation 15.1 15-50 % Vitamin B12 Level 1185 H 211-911 pg/mL Hemoglobin A1c 9.5 H <5.7 % A1C B-Type Natriuretic Peptide 996.88 0-100 pg/mL Microbiology Date/Time Source Procedure Growth Status 03/29/25 12:28 Nose MRSA Screen - Final Complete 03/29/25 12:27 Voided Urine Urine Culture - Final Enterococcus faecium - VRE Complete 03/29/25 01:30 Blood Blood Culture - Preliminary NO GROWTH AFTER 48 HOURS OF INCUBATION. Resulted Assessment Impression: Acute hypoxic respiratory failure Dependence on supplemental oxygen Loculated pleural effusion Atelectasis Obesity, BMI 36.3 Plan: Supplemental oxygen Titrate to keep O2 sats above 92%. Currently on 10 LPM Oxymizer Taper O2 as tolerated. Chest CT reveals moderate right pleural effusion which appears to be loculated. Left lower lobe atelectasis/consolidation. Right middle lobe and right lower lo be compressive atelectasis. Findings c/w CHF. Plan to obtain limited chest ultrasound to evaluate if pleural effusion amenable for thoracentesis. V/q Low probability for pulmonary embolism. Continue bronchodilators. Continue antibiotics Incentive spirometry Diurese with Lasix Monitor renal function. Monitor electrolytes. Supplement as necessary. Potassium supplementation Monitor ins and outs. Recommend diet and lifestyle modifications for weight reduction Obesity complicates all care DVT prophylaxis. Prognosis: Poor given patient's multiple co-morbidities. Rest of plan per hospitalist and other consultants. Thank you, Dr. Howard, for allowing me to participate in this patient's care. Further recommendations will depend on the patient's clinical course. Please do not hesitate to contact me if you have any questions or concerns. This medical document was created using an electronic medical record system with [employer] dictation system. Although these documentations are being carefully reviewed, there may still be some phonetic and typographical changes. The errors are purely typographical, due to imperfection on the software program, and do not reflect any compromise in the patient's medical care. Plan discussed with: Patient, Other (LILI Lei/) Visit Coding Pulmonary Billing Provider: JAN GONCALVES MD Date of Service if different f: Mar 30, 2025 Common Visit Codes: 89721-DADGPOL INP/OBS CARE (HIGH) JAN GONCALVES MD Mar 31, 2025 22:33
[2025-04-01] VITALS (13 sets, daily range): BP systolic 144–172; BP diastolic 60–78; PULSE 66–85; RESP 14–19; TEMP 97.8–99.6; O2SAT 95–99
--- NOTE | 2025-04-01 06:02 | DVHPN2 ---
Progress Note - Dictate Date Seen: Apr 01, 2025 Has the PT tested + for MRSA If YES, has PT been informed?: No Medical Necessity Reason Pt with a Central, PICC or Fol: No vital signs Vital Sign Date Time Temp Pulse Resp B/P (MAP) Pulse Ox O2 Delivery O2 Flow Rate FiO2 04/01/25 05:00 98.7 85 15 151/67 (95) 96 98.7 04/01/25 01:06 Oxymizer 8.0 04/01/25 01:06 N/A Total Intake and Output 03/31/25 03/31/25 04/01/25 15:00 23:00 07:00 Intake Total 350 ml 750 ml Output Total 1050 ml 1050 ml Balance -700 ml -300 ml medications Current Medications Medications Dose Ordered Sig/Cayla Route Start Time Stop Time Status Last Admin Dose Admin Hydralazine HCl 10 mg Q6HP PRN IV 03/29/25 02:15 04/01/25 01:48 10 MG Diagnostic Test (Pha) 1 strip ACHS 03/29/25 07:00 03/31/25 22:29 1 STRIP Insulin Human Regular HS SC 03/29/25 22:00 03/31/25 22:28 4 UNITS Insulin Human Regular AC SC 03/29/25 07:00 03/31/25 17:48 6 UNITS Dextrose 50 ml UD PRN IV 03/29/25 02:15 Sodium Chloride 10 ml Q8HR IV 03/29/25 06:00 03/31/25 22:33 10 ML Acetaminophen/ Hydrocodone Bitart 1 tab Q4HP PRN PO 03/29/25 02:15 04/01/25 05:29 1 TAB Ondansetron HCl 4 mg Q4HP PRN IV 03/29/25 02:15 04/01/25 05:28 4 MG Docusate Sodium 100 mg BIDPRN PRN PO 03/29/25 02:15 Acetaminophen 650 mg Q6HP PRN PO 03/29/25 02:15 Nitroglycerin 0.4 mg Q5MINP PRN SL 03/29/25 04:30 Morphine Sulfate 2 mg Q30M PRN IV 03/29/25 04:30 Albuterol 2.5 mg Q4HPRN PRN NEB 03/29/25 20:45 03/30/25 04:59 2.5 MG Ipratropium [place] 0.5 mg Q4HPRN PRN NEB 03/29/25 20:45 03/30/25 04:58 0.5 MG Cefepime HCl 50 ml @ 12.5 mls/hr Q12H IV 03/30/25 18:00 03/31/25 17:43 12.5 MLS/HR Lisinopril 20 mg DAILY PO 03/31/25 10:00 03/31/25 09:03 20 MG Carvedilol 6.25 mg Q12HR PO 03/30/25 22:00 03/31/25 22:33 6.25 MG Amlodipine Besylate 5 mg DAILY PO 03/31/25 10:00 03/31/25 09:04 5 MG Furosemide 60 mg BIDD IV 03/31/25 18:00 03/31/25 17:51 60 MG Linezolid 300 ml @ 150 mls/hr Q12HR IV 03/31/25 22:00 03/31/25 22:33 150 MLS/HR laboratory and microbiology Laboratory Tests 03/31/25 05:56 Test 03/31/25 05:56 Range/Units Serum Glucose 114 H 74-106 mg/dL Assessment/Plan Seen and examined on tele. Anticoagulation (Eliquis) on hold secondary to hematuria The patient is a 79-year-old female known to our clinic who presented to the emergency department on 03/29/2025 for shortness of breath. Notably, she was recently discharged from [facility] three days prior following treatment for pneumonia. Her reports that she was noted to have an oxygen saturation of 81% at home associated with weakness and lethargy. He also stated that he was unaware supplemental oxygen could be used in conjunction with CPAP therapy, which is likely the cause of her hypoxia. Laboratory results revealed hemoglobin 7.5, D-dimer 4.83 (with subsequent bilateral lower extremity Doppler ultrasound negative for DVT), BNP 996.8, potassium 4.2, creatinine 1.94, high-sensitivity troponin 12, with repeat 12, and hemoglobin A1c 9.5%. Iron studies showed serum iron 32 and TIBC 212. Urinalysis was positive for leukocytes. Chest X-ray demonstrated cardiomegaly with mild pulmonary edema and a small right pleural effusion. NAD, no JVD, pink and wet mucosa, no carotid bruit, not using accessory muscles of breathing. Scattered rhonchi in lungs+, Cardiac: irregular, no thrill, no gallop, Abdomen; soft, nontender, no gross mass/hepatomegally, no peripheral edema, no gross lateralized neurologic deficit Past medical history includes coronary artery disease status post prior PCI to the mid LAD; breast cancer status post left mastectomy; diabetes mellitus; hypertension; chronic diastolic heart failure; COPD on home oxygen therapy; peripheral neuropathy; anxiety; depression; GERD; paroxysmal atrial fibrillation on chronic anticoagulation; status post previous hand surgery, hysterectomy, and left mastectomy. Lexiscan stress test (12/11/2023) revealed no evidence of gross ischemia with an ejection fraction of 70%. Echocardiogram ([facility] 01/09/2024): Technically difficult study. Left ventricle demonstrates mildly increased wall thickness with stage I diastolic dysfunction. Right ventricular size and function are normal. Left ventricular ejection fraction (LVEF) is 60% by visual estimation. Right atrium is mildly dilated; mild left atrial dilation is present. Aortic and mitral valves open adequately. Trace mitral regurgitation, trace pulmonic regurgitation, and mild tricuspid regurgitation noted. Estimated RVSP is 24 mmHg. Echocardiogram ([facility] 03/05/2025): Technically difficult study. LVEF is 6570% by visual estimation. Mild left ventricular hypertrophy and stage I diastolic dysfunction are present. Right ventricle is mildly dilated with normal function. Left atrium is severely dilated; moderate right atrial dilation noted. Tricuspid valve demonstrates mild regurgitation with RVSP 55 mmHg. Trace pulmonic regurgitation observed. Mitral valve structure is normal with mildly restricted motion and mild leaflet thickening. There is moderate posterior mitral annular calcification and mild mitral regurgitation without evidence of mitral stenosis or aortic stenosis. Echocardiogram ([facility] 03/29/2025): LVEF 60% by visual estimation. Severe mitral annular calcification is noted with moderate mitral stenosis and a mean transmitral gradient of 5 mmHg. Left atrium is enlarged. [id number] tricuspid regurgitation is present. V/Q scan: Low probability for PE. Assessment: Coronary artery disease, status post prior PCI to mid LAD; no ischemia on Lexiscan (12/11/2023) Elevated BNP consistent with mild volume overload and diastolic dysfunction Anemia, likely secondary to iron deficiency (iron 32, TIBC 212) Moderate mitral stenosis secondary to severe mitral annular calcification Acute on chronic diastolic heart failure with preserved ejection fraction Chronic kidney disease with acute kidney injury (creatinine 1.94) Severe left atrial enlargement and moderate tricuspid regurgitation. Paroxysmal atrial fibrillation on chronic anticoagulation History of breast cancer status post mastectomy Diabetes mellitus with A1c 9.5% COPD on home oxygen therapy Small right pleural effusion Hypertension Abnormal D-Dimer Hypertensive urgency Cardiology Recommendations: Given the elevated creatinine, a VQ scan is recommended to rule out pulmonary embolism in the presence of an elevated D-dimer and to avoid further nephrotoxic contrast exposure (V/Q scan was low probability for PE). Optimize guideline- directed medical therapy (GDMT) for heart failure with preserved ejection fraction. Diurese as tolerated to improve volume status, given elevated BNP and mild pulmonary edema. Monitor renal function and electrolytes closely during diuresis. Continue supplemental oxygen with CPAP at night; patient and spouse educated regarding concurrent use. 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 Optimize control of hypertension and diabetes mellitus. Reassess volume status, BNP, and renal function daily to guide further diuretic therapy.Recognizing presentation/recent NST finding, ACS at this point is not considered. As ACS is not considered, no indication warranted for ischemic workup at present time. BP was elevated and its control is advised. Proceed with close observation for overt signs of fluid overload Proceed with strict intakes, outputs, and daily weights Proceed with close rate and rhythm surveillance Proceed with close hemodynamic surveillance Proceed with optimized blood pressure control Transfuse to sustain HGB levels above 7.0 Sustain Magnesium level greater than 2.0 Sustain Potassium level greater than 4.0 Follow up renal function and electrolytes IV lasix: 60 mg IV BID Increase Amlodipine: to 10 mg daily Eliquis on hold secondary to Hematuria. Restart full anticoagulation (when stable and before discharge: consider Eliquis at 2.5 BID at this point) Consider urology evaluation Management in Telemetry Will proceed to follow from a cardiac perspective Further recommendations per clinical progression All available labs, EKGs, and images were personally reviewed Plan of care discussed with and agreed upon by patient/family/Primary RN. Prognosis: Guarded Thank you for allowing me to participate in the care of this patient. Further recommendations will depend on clinical progression, hospitalist, and other consultants. Will continue to follow with Primary. If you have any questions, please do not hesitate to contact me. A total of 55 minutes was spent reviewing the patient record, examining the patient, making a diagnostic and therapeutic plan, discussing this plan with medical personnel, following up on diagnostic studies and following the patient for clinical stability excluding any and all procedures. At least 50% of this time was spent in direct, [id number] contact. Dietary Evaluation Review Comments: 1. Offer CCHO-60 Cardiac diet with 50g protein restriction. 2. Initiate iron and MVI supplementation. 3. Provide education and "How to survive: A guide for your journey with Diabetes" 4. Advise pt to follow her Diet and Monitor blood glucose level closely. Expected Outcomes/Goals: Controlled DM, prevent uremic syndrome, healed wounds and Gradual wt loss Plan discussed with: Patient, Other (nurse) JORGE ESPOSITO MD Apr 01, 2025 06:02
[2025-04-01 06:57] LABS: Hematocrit 29.0 % (36.0-46.0); Hemoglobin 9.6 g/dL (12.2-16.2); Mean Corpuscular Hemoglobin 28.7 pg (28.0-32.0); Mean Corpuscular Volume 86.5 fL (80.0-100.0); Nucleated Red Blood Cells % 0.0 %
[2025-04-01 07:14] LABS: Anion Gap 6 (5-15); Sodium 140 mmol/L (136-145)
[2025-04-01 07:19] LABS: Calcium 8.4 mg/dL (8.7-10.4); Chloride 94 mmol/L (98-107); Potassium 3.2 mmol/L (3.5-5.1)
[2025-04-01 07:21] LABS: BUN/Creatinine Ratio 25.0 (10.0-20.0); Blood Urea Nitrogen 31 mg/dL (9-23); Glucose 186 mg/dL (74-106)
[2025-04-01 08:15] LABS: Carbon Dioxide 40 mmol/L (20-31)
[2025-04-01] MEDS: APIXABAN 2.5 MG TAB PO SCH (09:53)
--- NOTE | 2025-04-01 11:04 | DVH ---
INDICATION: plueral effusion TECHNIQUE: Single frontal view of the chest was obtained COMPARISON: XY CHEST PORTABLE on DOS: 03/29/25, XY CHEST PORTABLE on DOS: 10/19/23, XY CHEST PORTABLE on DOS: 03/29/25 FINDINGS: Lines and Tubes: None Lungs: Diffuse increased prominence of the pulmonary vasculature and small right pleural effusion. No pneumothorax. Cardiomediastinal contours: Cardiomegaly. Bones: Unremarkable IMPRESSION: 1. Cardiomegaly with mild pulmonary edema and small right pleural effusion.
--- NOTE | 2025-04-01 12:13 | DVHINCON2 ---
Date of service: Apr 01, 2025 Referring Physician Hospitalist Reason for Consultation Hematuria with Jerome in place History of Present Illness Patient admitted for pneumonia, immobility. Jerome placed 2 days ago and hematuria noted. Urine is clear now. She has history of benign renal cysts per renal US previously. PATIENT: ALEX ORTIZ ACCT: [id number] UNIT: [id number] : 1945 [facility] SEX: 77 / F ADM STATUS: ADM IN SERVICE 0844 ORDERING PHYSICIAN: LAILA CARRERO PROCEDURE(s): KIDUS - KIDNEY REASON: elevated creatinine ORDER NUMBER(s): [id number], ACCESSION NUMBER(s): [id number] INDICATION: elevated creatinine EXAMINATION: Ultrasound US KIDNEY TECHNIQUE: Ramirez scale and color doppler images were obtained of the kidneys. COMPARISON: None. FINDINGS: RIGHT KIDNEY: 11.4 cm with a 1.6 cm lower pole cyst. There is no hydronephrosis. No shadowing calculus, focal lesion or perinephric collection is demonstrated. LEFT KIDNEY: 8.7 cm with a 2.5 cm upper pole cyst. There is no hydronephrosis. No shadowing calculus, focal lesion or perinephric collection is demonstrated. URINARY BLADDER: No acute abnormality. IMPRESSION: Bilateral renal cysts. ATED BY: BAR JOHNSON MD DICTATED DATE/TIME: 10/19/23 1111 SIGNED BY: BAR JOHNSON MD SIGNED DATE/TIME: 10/19/23 1111 CC: Family History: Diabetes mellitus G8 MOTHER, G8 FATHER Hypertension G8 MOTHER, G8 FATHER Ischemic heart disease Allergies: Coded Allergies: NO KNOWN ALLERGIES (Unverified , 01/28/17) Home Meds Reported Medications Levorphanol Tartrate (Levorphanol Tartrate) 2 Mg Tab, 1 TAB PO BID for 30 Days, #60 03/31/25 Pravastatin Sodium (PRAVACHOL TABLET) 20 Mg Tb, 40 MG PO DAILY for 90 Days, #90 03/31/25 Hydralazine Hcl (Hydralazine Hcl) 50 Mg Tab, 1 TAB PO TID for 90 Days, #270 03/31/25 Lidocaine (Ztlido) 1.8 % Pad, 1-2 PATCH EXT DAILY for 30 Days, #60 APPLY 1-2 PATCHES REMOVE AFTER 12 HOURS EXTERNALLY ONCE A DAY. 03/31/25 Tramadol Hcl (Tramadol Hcl) 50 Mg Tab, 1 TAB PO TID PRN for PAIN for 30 Days, #90 03/31/25 Losartan Potassium (Losartan Potassium) 50 Mg Tab, 1 TAB PO DAILY for 90 Days, #90 03/31/25 Alprazolam (Alprazolam) 0.25 Mg Tab, 1 TAB PO DAILY for 30 Days, #30 03/31/25 Dzcxgjavngl-Bcacggbflqhd-Enefa (Trelegy Ellipta 100-62.5-25 Mcg/INH) 1 Aer Aer, 1 PUFF INH DAILY for 30 Days, #60 03/31/25 Hydroxyzine Hcl (Hydroxyzine Hcl) 25 Mg Tab, 1 TAB PO DAILY for 30 Days, #30 03/31/25 Pantoprazole Sodium Sesquihydr (Pantoprazole Sodium Dr) 40 Mg Tab, 1 TAB PO DAILY for 90 Days, #90 03/31/25 Potassium Chloride (Potassium Chloride ER) 10 Meq Tab, 1 TAB PO DAILY for 90 Days, #90 03/31/25 Anastrozole (Anastrozole) 1 Mg Tab, 1 TAB PO DAILY for 90 Days, #90 03/31/25 Furosemide (Furosemide) 40 Mg Tab, 1 TAB PO BID for 30 Days, #60 03/31/25 Carvedilol (Carvedilol) 12.5 Mg Tab, 1 TAB PO BID for 30 Days, #60 03/31/25 Finerenone (Kerendia) 20 Mg Tab, 1 TAB PO DAILY for 30 Days, #30 03/31/25 Magnesium Oxide (MAGNESIUM OXIDE) 400 Mg Tab, 1 TAB PO DAILY for 120 Days, #120 10/20/23 Escitalopram Oxalate (ESCITALOPRAM OXALATE) 20 Mg Tab, 1 TAB PO BID for 90 Days, #90 10/20/23 Empagliflozin (Jardiance) 10 Mg Tab, 1 TAB PO DAILY for 30 Days, #30 10/20/23 Nifedipine (Nifedipine Er) 30 Mg Tab, 1 TAB PO DAILY for 90 Days, #90 10/20/23 Apixaban Base (ELIQUIS) 2.5 Mg Tab, 1 TAB PO BID for 30 Days, #60 10/20/23 Ropinirole Hydrochloride (Ropinirole Hcl) 0.5 Mg Tab, 1 TAB PO DAILY for 90 Days, #90 10/20/23 Clonidine Hydrochloride (Clonidine Hcl) 0.1 Mg Tab, 1 TAB PO TID for 90 Days, #270 01/28/17 Current Medications Current Medications Medications (Trade) Dose Ordered Sig/Cayla Route PRN Reason Start Time Stop Time Status Last Admin Furosemide (Lasix Injection) 60 mg BIDD IV 03/31/25 18:00 04/01/25 06:54 Linezolid 300 ml @ 150 mls/hr Q12HR IV 03/31/25 22:00 04/01/25 09:56 Amlodipine Besylate (Norvasc Tablet) 10 mg DAILY PO 04/01/25 10:00 04/01/25 09:54 Apixaban (Eliquis) 2.5 mg BID PO 04/01/25 10:00 04/01/25 09:53 Vital Signs Vital Signs Date Time Temp Pulse Resp B/P (MAP) Pulse Ox O2 Delivery O2 Flow Rate FiO2 04/01/25 10:56 67 170/65 04/01/25 08:20 98.3 16 96 98.3 04/01/25 08:00 Oxymizer 8 N/A Labs/Diagnostic Data Labs Test 04/01/25 11:52 04/01/25 06:04 03/31/25 13:14 03/31/25 05:56 Range/Units POC Glucose 243 H 70-106 mg/dl White Blood Count 7.9 4.4-10.8 10^3/uL Red Blood Count 3.35 L 4.0-5.20 10^6/uL Hemoglobin 9.6 L 12.2-16.2 g/dL Hematocrit 29.0 L 36.0-46.0 % Mean Corpuscular Volume 86.5 80.0-100.0 fL Mean Corpuscular Hemoglobin 28.7 28.0-32.0 pg Mean Corpuscular Hemoglobin Concent 33.2 32.0-36.0 g/dL Red Cell Distribution Width 13.6 11.8-14.3 % Platelet Count 178 140-450 10^3/uL Mean Platelet Volume 7.5 6.9-10.8 fL Neutrophils (%) (Auto) 78.0 37.0-80.0 % Lymphocytes (%) (Auto) 10.0 10.0-50.0 % Monocytes (%) (Auto) 9.6 0.0-12.0 % Eosinophils (%) (Auto) 1.7 0.0-7.0 % Basophils (%) (Auto) 0.7 0.0-2.0 % Neutrophils # (Auto) 6.2 1.6-8.6 10 ^3/uL Lymphocytes # (Auto) 0.8 0.4-5.4 10 ^3/uL Monocytes # (Auto) 0.8 0-1.3 10 ^3/uL Eosinophils # (Auto) 0.1 0-0.8 10 ^3/uL Basophils # (Auto) 0.1 0-0.2 10 ^3/uL Nucleated Red Blood Cells 0.0 % Sodium Level 140 136-145 mmol/L Potassium Level 3.2 L 3.5-5.1 mmol/L Chloride Level 94 L 98-107 mmol/L Carbon Dioxide Level 40 H 20-31 mmol/L Anion Gap 6 5-15 Blood Urea Nitrogen 31 H 9-23 mg/dL Creatinine 1.24 H 0.550-1.02 mg/dL Glomerular Filtration Rate Calc 45 >90 mL/min BUN/Creatinine Ratio 25.0 H 10.0-20.0 Serum Glucose 186 H 74-106 mg/dL Calcium Level 8.4 L 8.7-10.4 mg/dL Prothrombin Time 23.4 H 9.3-11.8 sec Prothrombin Time INR 2.41 H 0.9-1.15 Random Vancomycin Level 22.3 H 5-10 ug/mL Test 03/30/25 05:54 03/29/25 13:27 03/29/25 10:24 03/29/25 04:30 Range/Units Total Bilirubin 0.3 0.2-1.0 mg/dL Aspartate Amino Transferase (AST) 17 13-40 U/L Alanine Aminotransferase (ALT) < 9 7-40 U/L Alkaline Phosphatase 143 H 46-116 U/L Total Protein 6.6 5.7-8.2 g/dL Albumin 3.1 L 3.2-4.8 g/dL D-Dimer, Quantitative 4.83 H 0.0-0.49 mg/L FEU Urine Color Dark yellow Yellow Urine Clarity Ex.turbid Clear Urine pH 5.5 5.0-9.0 Urine Specific Gal[place] 1.010 1.001-1.035 Urine Protein 1+ H Negative Urine Ketones Negative Negative Urine Blood 2+ H Negative /uL Urine Nitrite Negative Negative Urine Bilirubin Negative Negative Urine Urobilinogen Normal Negative mg/dL Urine Leukocyte Esterase 3+ Negative /uL Urine RBC 96 0 - 4 /hpf Urine WBC Clumps Present None Seen /hpf Urine Microscopic WBC 2737 H 0-5 /HPF Urine Squamous Epithelial Cells None seen <5 /hpf Urine Bacteria None seen None Seen /hpf Urine Yeast (Budding) Loaded None Seen /hpf Urine Glucose Normal Normal mg/dL Test 03/29/25 02:12 03/29/25 01:22 03/29/25 01:12 Range/Units Troponin I High Sensitivity 12 </=34 ng/L Lactic Acid Level 0.4 0.4-2.0 mmol/L Iron Level 32 L 50-170 ug/dL Total Iron Binding Capacity 212 L 250-425 ug/dL Percent Iron Saturation 15.1 15-50 % Vitamin B12 Level 1185 H 211-911 pg/mL Hemoglobin A1c 9.5 H <5.7 % A1C B-Type Natriuretic Peptide 996.88 0-100 pg/mL Microbiology Date/Time Source Procedure Growth Status 03/29/25 12:28 Nose MRSA Screen - Final Complete 03/29/25 12:27 Voided Urine Urine Culture - Final Enterococcus faecium - VRE Complete 03/29/25 01:30 Blood Blood Culture - Preliminary NO GROWTH AFTER 72 HOURS OF INCUBATION. Resulted Assessment Hematuria Jerome in situ Plan/Recommendation remove Jerome when patient ambulatory and ready for discharge. F/U in Urology clinic for cystoscopy TBA Plan discussed with: AYLIN Costello MD Apr 01, 2025 12:13
[2025-04-01] MEDS: POTASSIUM CHL 20MEQ/100ML 100 ML IV ONE (13:33)
[2025-04-01 13:37] LABS: Base Excess 12.4 mmol/L (-2.0-3.0)
--- NOTE | 2025-04-01 17:07 | DVHPNRES ---
Progress Note Date Seen: Apr 01, 2025 Resident Creating Document: TEVIN GALEANA RESIDENT Has the PT tested + for MRSA If YES, has PT been informed?: No Medical Necessity Reason Pt with a Central, PICC or Fol: No Subjective Review of Systems Carlene Velez is a 79-year-old female with past medical history of breast cancer (2022), DM2, hypertension, CHF, depression, coronary artery disease, and chronic kidney failure. The patient came to the ED with chief complaint of 1 day of shortness of breaths. The patient's reports that patient has recently discharged from [facility] 3 days ago for pneumonia. The EMS report the patient was on respiratory distress, O2 saturation 81%, weakness, lethargic, blood sugar of 39 and was given D50 EN route to the ED for further evaluation. Patient was seen and evaluated in the ED, laboratory data shows WBC 8.6, hemoglobin 8.9, hematocrit 27.7, platelets 164, sodium 134, potassium 5.0, BUN 48, creatinine 1.94, glucose 197, calcium 8.2, alkaline phos 141, BNP 996.88, troponin 12, albumin 3.1, blood pressure 117/55, heart rate 68, temperature 98.1 F, O2 saturation 97% on non-rebreather. Chest x-ray revealing cardiomegaly with mild pulmonary edema and small right pleural effusion. Patient was started on IV Lasix, please see medication orders section in the computer. On admission assessment, the patient denies chest pain, no dizziness, headache, diaphoresis, currently on non-rebreather, no diarrhea, nausea, vomiting, fever, no chills. Patient was admitted for further evaluation and medical management. Past Medical History Hypertension, Diabetes, DM, HTN, Chronic kidney failure, CHF, Depression, Coronary artery disease, Breast cancer 2022 Past Surgical History Coronary stents, Left mastectomy 2022, PTCA Family History Reviewed, noncontributory to the management of this case. Past Social History The patient lives at home, denies smoking, alcohol or illicit drugs abuse. Admission Course: On 03/29/25, the patient was evaluated at bedside, VS, labs and chart was reviewed. The patient is alert, no oriented, short responses, confused. The patient with O2 via oxymizer at 5L with O2sat at 94% . Labs report severe anemia 7.5mg/dl, Lactic acid 0.4, UA is positive for UTI, D-dimer is elevated. DVT US doppler was ordered. Creatinine is 1.46. Jerome was draining pink-eliana urine, new UA was ordered. Due to Hb is trending down a rectal exam was performed with director of analytical development ( LILI Petersen), and FOBT sample was sent to the lab. Cultures were ordered: Urine, blood and sputum. The patient was started on Vancomycin and cefepime IV. The patient continues with furosemide 40mg IV. ECHo report is pending at this time. We will continue following this patient progress closely. On 03/30/25, the patient was re-evaluated and examined at bedside. VS, labs and chart was reviewed at bedside. The patient is still on oxymizer at 8L. BP is in the upper side. Due to improved on creatinine lisinopril was added, carvedilol dose was increased to 6.25mg. WBC are 9.1. Patient is on Vancomycin and Cefepime. VQ scan was negative for PE. Chest CT scan showed: Moderate right pleural effusion which appears to be loculated. Left lower lobe atelectasis/consolidation. Right middle lobe and right lower lobe compressive atelectasis. Diffuse interlobular septal thickening. This is likely related to CHF. Cardiomegaly. Pulmonary consult was placed. Hematuria was noted from the Jerome catheter. Eliquis was stopped by cardiology (Dr. Zimmerman). The patient reports today dyspnea and back pain. Pain is been management with [place] 5/325mg. I spoke with the patient's and addressed his questions and concerns. We will continue following up this patient progress closely. On 03/31/25, the patient was re-evaluated and examined at bedside. VS, labs and chart was reviewed. The patient is still on oxymizer at 8L. Pulmonology is on board, they will perform a thoracocentesis, consent was obtained. WBC are 9.8. Hb is improving. Hematuria has stopped. The patient continues with Vancomycin and Cefepime. The patient complains of back pain, her pain is been management with [place] 5/325mg. I spoke with the patient's and addressed his questions and concerns. We will continue following up this patient progress closely. On 04/01/25, the patient was re-evaluated and examined at bedside. VS, labs and chart was reviewed. The patient is still on oxymizer at 8L. Pulmonology is on board, did not performed the thoracocentesis due to the lug effusion is small and is loculated. WBC is trending down to 7.9 Hb is improving to 9.6. Hematuria stopped after put the eliquis on hold. Urology was consulted. Urine cultures showed: Enterococcus faecium, Vancomycin resistant. The patient continues with Cefepime, vancomycin was discontinued and replaced with Linezolid due to sensitivity test. The patient reports her back pain has improved with analgesia. I spoke with the patient's and addressed his questions and concerns. We will continue following up this patient progress closely. ROS: Constitutional: Yes: general Weakness; No: Fever, Chills, Sweats, Malaise Eyes: No: Pain, Vision change, Conjunctivae inflammation, Eyelid inflammation, Other, Redness ENT: No: Ear pain, Ear discharge, Nose pain, Nose discharge, Nose congestion, Mouth pain, Mouth swelling, Throat pain, Throat swelling, Other Respiratory: Shortness of breath, (SOB at rest); No: Cough, Dry, SOB with excertion, Wheezing, Hemoptysis, Pleuritic Pain, Sputum, Wheezing Cardiovascular: No: Chest Pain, Palpitations, Orthopnea, Paroxysmal Noc. Dyspnea, Edema, Lt Headedness, Other Gastrointestinal: No: Nausea, Vomiting, Abdominal Pain, Diarrhea, Constipation, Melena, Hematochezia, Other Genitourinary: No Dysuria, No Frequency, No Incontinence, No Hematuria, No Retention, No Other Musculoskeletal: Back pain No: other, neck pain, shoulder pain, arm pain, hand pain, leg pain, foot pain Skin: No: Rash, Lesions, Jaundice, Bruising, Other Neurological: No: Weakness, Numbness, Incoordination, Change in speech, Confusion, Seizures, Other Coded Allergies: NO KNOWN ALLERGIES (Unverified , 01/28/17) Objective vital signs Vital Sign Date Time Temp Pulse Resp B/P (MAP) Pulse Ox O2 Delivery O2 Flow Rate FiO2 04/01/25 13:06 160/66 04/01/25 12:20 97.8 72 16 99 97.8 04/01/25 11:30 Oxymizer 6 N/A Total Intake and Output 10/03/31/25 04/01/25 15:00 23:00 07:00 Intake Total 350 ml 750 ml Output Total 1050 ml 1050 ml Balance -700 ml -300 ml medications Current Medications Medications Dose Ordered Sig/Acyla Route Start Time Stop Time Status Last Admin Dose Admin Hydralazine HCl 10 mg Q6HP PRN IV 03/29/25 02:15 04/01/25 13:06 10 MG Diagnostic Test (Pha) 1 strip ACHS 03/29/25 07:00 04/01/25 11:30 1 STRIP Insulin Human Regular HS SC 03/29/25 22:00 03/31/25 22:28 4 UNITS Insulin Human Regular AC SC 03/29/25 07:00 04/01/25 12:16 6 UNITS Dextrose 50 ml UD PRN IV 03/29/25 02:15 Sodium Chloride 10 ml Q8HR IV 03/29/25 06:00 04/01/25 13:41 10 ML Acetaminophen/ Hydrocodone Bitart 1 tab Q4HP PRN PO 03/29/25 02:15 04/01/25 14:30 1 TAB Ondansetron HCl 4 mg Q4HP PRN IV 03/29/25 02:15 04/01/25 14:30 4 MG Docusate Sodium 100 mg BIDPRN PRN PO 03/29/25 02:15 Acetaminophen 650 mg Q6HP PRN PO 03/29/25 02:15 Nitroglycerin 0.4 mg Q5MINP PRN SL 03/29/25 04:30 Morphine Sulfate 2 mg Q30M PRN IV 03/29/25 04:30 Albuterol 2.5 mg Q4HPRN PRN NEB 03/29/25 20:45 03/30/25 04:59 2.5 MG Ipratropium [place] 0.5 mg Q4HPRN PRN NEB 03/29/25 20:45 03/30/25 04:58 0.5 MG Cefepime HCl 50 ml @ 12.5 mls/hr Q12H IV 03/30/25 18:00 04/01/25 06:54 12.5 MLS/HR Lisinopril 20 mg DAILY PO 03/31/25 10:00 04/01/25 09:56 20 MG Carvedilol 6.25 mg Q12HR PO 03/30/25 22:00 04/01/25 09:56 6.25 MG Furosemide 60 mg BIDD IV 03/31/25 18:00 04/01/25 06:54 60 MG Linezolid 300 ml @ 150 mls/hr Q12HR IV 03/31/25 22:00 04/01/25 09:56 150 MLS/HR Amlodipine Besylate 10 mg DAILY PO 04/01/25 10:00 04/01/25 09:54 10 MG Apixaban 2.5 mg BID PO 04/01/25 10:00 04/01/25 09:53 2.5 MG laboratory and microbiology Laboratory Tests 04/01/25 06:04 Test 04/01/25 06:04 Range/Units Serum Glucose 186 H 74-106 mg/dL Microbiology Date/Time Source Procedure Growth Status 03/29/25 12:28 Nose MRSA Screen - Final Complete 03/29/25 12:27 Voided Urine Urine Culture - Final Enterococcus faecium - VRE Complete 03/29/25 01:30 Blood Blood Culture - Preliminary NO GROWTH AFTER 72 HOURS OF INCUBATION. Resulted Problem List/Assessment/Plan Problem List/Assessment/Plan #Sepsis likely due to Pneumonia, gram +/- #Acute on chronic hypoxic respiratory failure #Pulmonary congestion #Moderate Pulmonary effusion #Acute on chronic systolic/Diastolic CHF exacerbation. Oxygen by Oxymizer 8L Telemetry BNP:996.25 ECHo D2 IV Antibiotics: Vancomycin and Cefepime. MedNeb Furosemide 40mg IV daily Blood cultures: Negative at this time Urine culture: positive for enteroccocus and yeast Sputum culture: pending Pulmonary consult: Thoracocentesis cancelled due to small loculated effusion. #Complicated UTI #Hematuria Urine culture: Enteroccocus fasecium-VRE Jerome catheter Urology consult Linezolid sensitive. Linezolid IV #Possible DVT #Possible Pulmonary embolus. Ruled out. US doppler bilateral lower extremities D-dimer elevated: 4.83 VQ scan: negative for PE #CAD Hold: Eliquis due to hematuria #CKD stage 3b on CHRISTIANE Avoid nephrotoxic drugs Monitor Crea/ BUN # Acute Severe Anemia Improving Hb:9.8mg/dl FOBT: pending result. Iron test B12 Type and screen #Generalized weakness likely due to Hypoglycemia Accucheck Dextrose 50ml if blood sugar<60 Resolving #DM type 2 with hyperglycemia Insulin sliding scale HbA1c 9.5% #Obesity 39.5. Counseling about healthy life style DVT prophylaxis: patient on Eliquis was placed on hold due to hematuria. Diet: Cardiac diet Goals of care discussed with the patient for more than 35 minutes: Code Status: Full code PCP: Dr. Kirkpatrick Case discussed with Dr. Garcia Plan discussed with: Patient, Spouse My Orders My Orders Orders - TEVIN GALEANA RESIDENT Procedure Category Date Status Time * Urology Consult CONS 04/01/25 Transmitted 13:48 Dietary Evaluation Review Comments: 1. Offer CCHO-60 Cardiac diet with 50g protein restriction. 2. Initiate iron and MVI supplementation. 3. Provide education and "How to survive: A guide for your journey with Diabetes" 4. Advise pt to follow her Diet and Monitor blood glucose level closely. Expected Outcomes/Goals: Controlled DM, prevent uremic syndrome, healed wounds and Gradual wt loss Date of Service: Apr 01, 2025 Billing Provider: VISHAL GARCIA MD Common Visit Codes: [id number] INP/OBS CARE(HIGH) TEVIN GALEANA RESIDENT Apr 01, 2025 17:07 VISHAL GARCIA MD Apr 01, 2025 21:53
[2025-04-01 18:36] LABS: Base Excess 12.1 mmol/L (-2.0-3.0)
--- NOTE | 2025-04-01 23:07 | DVHPN2 ---
[facility] DOS: 04/01/2025 Patient seen and examined at bedside. Currently on BiPAP Overnight events reviewed. Changes from previous H/P or p: Changes Eyes: No Pain, No Vision change, No Conjunctivae inflammation, No Eyelid inflammation, No Other, No Redness ENT: No Ear pain, No Ear discharge, No Nose pain, No Nose discharge, No Nose congestion, No Mouth pain, No Mouth swelling, No Throat pain, No Throat swelling, No Other Cardiovascular: No Chest Pain, No Palpitations, No Orthopnea, No Paroxysmal Noc. Dyspnea, No Edema, No Lt Headedness, No Other Respiratory: No Cough, No Dry; Shortness of breath; No SOB with excertion, No Wheezing, No Hemoptysis, No Pleuritic Pain, No Sputum; Other (SOB at rest) Gastrointestinal: No Nausea, No Vomiting, No Abdominal Pain, No Diarrhea, No Constipation, No Melena, No Hematochezia, No Other Genitourinary: No Dysuria, No Frequency, No Incontinence, No Hematuria, No Retention, No Other Musculoskeletal: No other, No neck pain, No shoulder pain, No arm pain, No back pain, No hand pain, No leg pain, No foot pain Skin: No Rash, No Lesions, No Jaundice, No Bruising, No Other Objective Vitals Vital Signs Date Time Temp Pulse Resp B/P (MAP) Pulse Ox O2 Delivery O2 Flow Rate FiO2 04/01/25 22:26 71 152/59 04/01/25 21:00 98.4 19 97 98.4 04/01/25 16:07 Facial BiPAP Mask 40 04/01/25 11:30 6 Intake/Output Intake and Output 04/01/25 07:00 Intake Total 1100 ml Output Total 2100 ml Balance -1000 ml Intake Oral 750 ml IV Total 350 ml Output Urine Total 2100 ml Exam Gen.: Patient lying in bed in no apparent distress. On BiPAP. Head: Normocephalic, atraumatic. Eyes: EOMI/PERRLA. Ears: Normal hearing. Normal anatomy. Neck/trachea: Trachea midline, supple. Nose: Normal external anatomy. Mouth: Moist mucous membranes. Chest: Decreased air entry bilaterally. No wheezing or rhonchi. Cardiovascular: Positive S1, positive S2. Regular rate and rhythm. Abdomen: Positive bowel sounds in all 4 quadrants. Soft, non-tender, non- distended. : Deferred. Rectal: Deferred. Skin: Warm, dry. Intact. Extremities: 2+ radial pulses bilaterally. No lower extremity edema. Neuro: Awake, alert, oriented x3. No gross motor or sensory deficits. Cranial nerves II through XII intact. Gait not assessed. Medications Current Medications Medications Dose Ordered Sig/Cayla Route Start Time Stop Time Status Last Admin Dose Admin Hydralazine HCl 10 mg Q6HP PRN IV 03/29/25 02:15 04/01/25 13:06 10 MG Diagnostic Test (Pha) 1 strip ACHS 03/29/25 07:00 04/01/25 17:00 1 STRIP Insulin Human Regular HS SC 03/29/25 22:00 04/01/25 22:13 2 UNITS Insulin Human Regular AC SC 03/29/25 07:00 04/01/25 17:00 6 UNITS Dextrose 50 ml UD PRN IV 03/29/25 02:15 Sodium Chloride 10 ml Q8HR IV 03/29/25 06:00 04/01/25 13:41 10 ML Acetaminophen/ Hydrocodone Bitart 1 tab Q4HP PRN PO 03/29/25 02:15 04/01/25 22:22 1 TAB Ondansetron HCl 4 mg Q4HP PRN IV 03/29/25 02:15 04/01/25 22:22 4 MG Docusate Sodium 100 mg BIDPRN PRN PO 03/29/25 02:15 Acetaminophen 650 mg Q6HP PRN PO 03/29/25 02:15 Nitroglycerin 0.4 mg Q5MINP PRN SL 03/29/25 04:30 Morphine Sulfate 2 mg Q30M PRN IV 03/29/25 04:30 Albuterol 2.5 mg Q4HPRN PRN NEB 03/29/25 20:45 03/30/25 04:59 2.5 MG Ipratropium [place] 0.5 mg Q4HPRN PRN NEB 03/29/25 20:45 03/30/25 04:58 0.5 MG Cefepime HCl 50 ml @ 12.5 mls/hr Q12H IV 03/30/25 18:00 04/01/25 18:12 12.5 MLS/HR Lisinopril 20 mg DAILY PO 03/31/25 10:00 04/01/25 09:56 20 MG Carvedilol 6.25 mg Q12HR PO 03/30/25 22:00 04/01/25 22:26 6.25 MG Furosemide 60 mg BIDD IV 03/31/25 18:00 04/01/25 18:16 60 MG Linezolid 300 ml @ 150 mls/hr Q12HR IV 03/31/25 22:00 04/01/25 09:56 150 MLS/HR Amlodipine Besylate 10 mg DAILY PO 04/01/25 10:00 04/01/25 09:54 10 MG Apixaban 2.5 mg BID PO 04/01/25 10:00 04/01/25 22:22 2.5 MG Laboratory Results Laboratory Tests 04/01/25 06:04 Chemistry Test 04/01/25 06:04 Calcium Level 8.4 mg/dL (8.7-10.4) L Urinalysis Test 03/29/25 04:30 Urine Color Dark yellow (Yellow) Urine Clarity Ex.turbid (Clear) Urine pH 5.5 (5.0-9.0) Urine Specific [place] 1.010 (1.001-1.035) Urine Protein 1+ (Negative) H Urine Ketones Negative (Negative) Urine Blood 2+ /uL (Negative) H Urine Nitrite Negative (Negative) Urine Bilirubin Negative (Negative) Urine Urobilinogen Normal mg/dL (Negative) Urine Leukocyte Esterase 3+ /uL (Negative) Urine RBC 96 /hpf (0 - 4) Urine WBC Clumps Present /hpf (None Seen) Urine Microscopic WBC 2737 /HPF (0-5) H Urine Squamous Epithelial Cells None seen /hpf (<5) Urine Bacteria None seen /hpf (None Seen) Urine Yeast (Budding) Loaded /hpf (None Seen) Urine Glucose Normal mg/dL (Normal) Blood Gas Results Test 04/01/25 13:28 04/01/25 18:21 Arterial Blood pH 7.474 (7.350-7.450) 7.489 (7.350-7.450) FiO2 % 52.0 40.0 Microbiology Microbiology Date/Time Source Procedure Growth Status 03/29/25 12:28 Nose MRSA Screen - Final Complete 03/29/25 12:27 Voided Urine Urine Culture - Final Enterococcus faecium - VRE Complete 03/29/25 01:30 Blood Blood Culture - Preliminary NO GROWTH AFTER 72 HOURS OF INCUBATION. Resulted Assessment/Plan Assessment/Plan Impression: Acute hypoxic respiratory failure Dependence on supplemental oxygen Loculated pleural effusion Atelectasis Obesity, BMI 36.3 Events: Patient was placed on BIPAP due to hypercarbia. On BiPAP with IPAP 12, EPAP 5, FiO2 40% Taper FiO2 as tolerated. ABG notable for alkalemia Limited chest U/S of right lung revealed right loculated pleural effusion Chest x-ray improved; right lung opacities persist, pulmonary vascular congestion. Continue diuresis with Lasix Monitor renal function. Monitor electrolytes. Supplement as necessary. Continue bronchodilators Continue antibiotics Incentive spirometry V/Q scan shows low probability for PE. Labs and imaging reviewed. Rest of plan as noted below. Plan: On BiPAP Titrate to keep O2 sats above 92%. Taper as tolerated, transition to supplemental oxygen Chest CT revealed moderate right pleural effusion which appears to be loculated. Left lower lobe atelectasis/consolidation. Right middle lobe and right lower lobe compressive atelectasis. Findings c/w CHF. Continue bronchodilators. Continue antibiotics Incentive spirometry Diurese with Lasix Monitor renal function. Monitor electrolytes. Supplement as necessary. Monitor ins and outs. Recommend diet and lifestyle modifications for weight reduction Obesity complicates all care DVT prophylaxis. Prognosis: Poor given patient's multiple co-morbidities. Rest of plan per hospitalist and other consultants. Thank you, Dr. Howard, for allowing me to participate in this patient's care. Further recommendations will depend on the patient's clinical course. Please do not hesitate to contact me if you have any questions or concerns. This medical document was created using an electronic medical record system with [employer] dictation system. Although these documentations are being carefully reviewed, there may still be some phonetic and typographical changes. The errors are purely typographical, due to imperfection on the software program, and do not reflect any compromise in the patient's medical care. Plan discussed with: Patient, Other (LILI Carvalho) Visit Coding Pulmonary Billing Provider: JAN GONCALVES MD Date of Service if different f: Apr 01, 2025 Common Visit Codes: [id number] INP/OBS CARE(HIGH) JAN GONCALVES MD Apr 01, 2025 23:07
[2025-04-02] VITALS (11 sets, daily range): BP systolic 142–171; BP diastolic 43–73; PULSE 68–79; RESP 16–18; TEMP 98.2–99.8; O2SAT 94–99
[2025-04-02 06:46] LABS: Hematocrit 28.4 % (36.0-46.0); Hemoglobin 9.3 g/dL (12.2-16.2); Mean Corpuscular Hemoglobin 28.4 pg (28.0-32.0); Mean Corpuscular Volume 87.0 fL (80.0-100.0); Nucleated Red Blood Cells % 0.0 %
[2025-04-02 06:57] LABS: Anion Gap 7 (5-15); Sodium 139 mmol/L (136-145)
[2025-04-02 07:03] LABS: BUN/Creatinine Ratio 22.6 (10.0-20.0); Calcium 8.2 mg/dL (8.7-10.4); Carbon Dioxide 39 mmol/L (20-31); Chloride 93 mmol/L (98-107); Potassium 3.2 mmol/L (3.5-5.1)
[2025-04-02 07:07] LABS: Blood Urea Nitrogen 33 mg/dL (9-23); Glucose 156 mg/dL (74-106)
--- NOTE | 2025-04-02 07:38 | DVHPN2 ---
Progress Note - Dictate Date Seen: Apr 02, 2025 Has the PT tested + for MRSA If YES, has PT been informed?: No Medical Necessity Reason Pt with a Central, PICC or Fol: No vital signs Vital Sign Date Time Temp Pulse Resp B/P (MAP) Pulse Ox O2 Delivery O2 Flow Rate FiO2 04/02/25 05:13 169/60 04/02/25 05:00 98.7 69 18 98 98.7 04/02/25 00:01 Facial BiPAP Mask 40 04/01/25 21:10 6.0 Total Intake and Output 04/01/25 04/01/25 04/02/25 15:00 23:00 07:00 Intake Total 250 ml 200 ml 450 ml Output Total 650 ml 500 ml Balance 250 ml -450 ml -50 ml medications Current Medications Medications Dose Ordered Sig/Cayla Route Start Time Stop Time Status Last Admin Dose Admin Hydralazine HCl 10 mg Q6HP PRN IV 03/29/25 02:15 04/02/25 05:13 10 MG Diagnostic Test (Pha) 1 strip ACHS 03/29/25 07:00 04/02/25 07:28 1 STRIP Insulin Human Regular HS SC 03/29/25 22:00 04/01/25 22:13 2 UNITS Insulin Human Regular AC SC 03/29/25 07:00 04/02/25 06:49 2 UNITS Dextrose 50 ml UD PRN IV 03/29/25 02:15 Sodium Chloride 10 ml Q8HR IV 03/29/25 06:00 04/02/25 06:00 10 ML Acetaminophen/ Hydrocodone Bitart 1 tab Q4HP PRN PO 03/29/25 02:15 04/02/25 03:09 1 TAB Ondansetron HCl 4 mg Q4HP PRN IV 03/29/25 02:15 04/01/25 22:22 4 MG Docusate Sodium 100 mg BIDPRN PRN PO 03/29/25 02:15 Acetaminophen 650 mg Q6HP PRN PO 03/29/25 02:15 Nitroglycerin 0.4 mg Q5MINP PRN SL 03/29/25 04:30 Morphine Sulfate 2 mg Q30M PRN IV 03/29/25 04:30 Albuterol 2.5 mg Q4HPRN PRN NEB 03/29/25 20:45 03/30/25 04:59 2.5 MG Ipratropium [place] 0.5 mg Q4HPRN PRN NEB 03/29/25 20:45 03/30/25 04:58 0.5 MG Cefepime HCl 50 ml @ 12.5 mls/hr Q12H IV 03/30/25 18:00 04/01/25 18:12 12.5 MLS/HR Lisinopril 20 mg DAILY PO 03/31/25 10:00 04/01/25 09:56 20 MG Carvedilol 6.25 mg Q12HR PO 03/30/25 22:00 04/01/25 22:26 6.25 MG Furosemide 60 mg BIDD IV 03/31/25 18:00 04/01/25 18:16 60 MG Linezolid 300 ml @ 150 mls/hr Q12HR IV 03/31/25 22:00 04/01/25 22:39 150 MLS/HR Amlodipine Besylate 10 mg DAILY PO 04/01/25 10:00 04/01/25 09:54 10 MG Apixaban 2.5 mg BID PO 04/01/25 10:00 04/01/25 22:22 2.5 MG laboratory and microbiology Laboratory Tests 04/02/25 05:44 Test 04/02/25 05:44 Range/Units Serum Glucose 156 H 74-106 mg/dL Assessment/Plan Seen and examined on tele. Restarted on Eliquis. Seen by Urology The patient is a 79-year-old female known to our clinic who presented to the emergency department on 03/29/2025 for shortness of breath. Notably, she was recently discharged from [facility] three days prior following treatment for pneumonia. Her reports that she was noted to have an oxygen saturation of 81% at home associated with weakness and lethargy. He also stated that he was unaware supplemental oxygen could be used in conjunction with CPAP therapy, which is likely the cause of her hypoxia. Laboratory results revealed hemoglobin 7.5, D-dimer 4.83 (with subsequent bilateral lower extremity Doppler ultrasound negative for DVT), BNP 996.8, potassium 4.2, creatinine 1.94, high-sensitivity troponin 12, with repeat 12, and hemoglobin A1c 9.5%. Iron studies showed serum iron 32 and TIBC 212. Urinalysis was positive for leukocytes. Chest X-ray demonstrated cardiomegaly with mild pulmonary edema and a small right pleural effusion. NAD, no JVD, pink and wet mucosa, no carotid bruit, not using accessory muscles of breathing. Scattered rhonchi in lungs+, Cardiac: irregular, no thrill, no gallop, Abdomen; soft, nontender, no gross mass/hepatomegally, no peripheral edema, no gross lateralized neurologic deficit Past medical history includes coronary artery disease status post prior PCI to the mid LAD; breast cancer status post left mastectomy; diabetes mellitus; hypertension; chronic diastolic heart failure; COPD on home oxygen therapy; peripheral neuropathy; anxiety; depression; GERD; paroxysmal atrial fibrillation on chronic anticoagulation; status post previous hand surgery, hysterectomy, and left mastectomy. Lexiscan stress test (12/11/2023) revealed no evidence of gross ischemia with an ejection fraction of 70%. [place] [place] Technically difficult study. Left ventricle demonstrates mildly increased wall thickness with stage I diastolic dysfunction. Right ventricular size and function are normal. Left ventricular ejection fraction (LVEF) is 60% by visual estimation. Right atrium is mildly dilated; mild left atrial dilation is present. Aortic and mitral valves open adequately. Trace mitral regurgitation, trace pulmonic regurgitation, and mild tricuspid regurgitation noted. Estimated RVSP is 24 mmHg. [place] [place] Technically difficult study. LVEF is 6570% by visual estimation. Mild left ventricular hypertrophy and stage I diastolic dysfunction are present. Right ventricle is mildly dilated with normal function. Left atrium is severely dilated; moderate right atrial dilation noted. Tricuspid valve demonstrates mild regurgitation with RVSP 55 mmHg. Trace pulmonic regurgitation observed. Mitral valve structure is normal with mildly restricted motion and mild leaflet thickening. There is moderate posterior mitral annular calcification and mild mitral regurgitation without evidence of mitral stenosis or aortic stenosis. Echocardiogram ([facility] 03/29/2025): LVEF 60% by visual estimation. Severe mitral annular calcification is noted with moderate mitral stenosis and a mean transmitral gradient of 5 mmHg. Left atrium is enlarged. [id number] tricuspid regurgitation is present. V/Q scan: Low probability for PE. Assessment: Coronary artery disease, status post prior PCI to mid LAD; no ischemia on Lexiscan (12/11/2023) Elevated BNP consistent with mild volume overload and diastolic dysfunction Anemia, likely secondary to iron deficiency (iron 32, TIBC 212) Moderate mitral stenosis secondary to severe mitral annular calcification Acute on chronic diastolic heart failure with preserved ejection fraction Chronic kidney disease with acute kidney injury (creatinine 1.94) Severe left atrial enlargement and moderate tricuspid regurgitation. Paroxysmal atrial fibrillation on chronic anticoagulation History of breast cancer status post mastectomy Diabetes mellitus with A1c 9.5% COPD on home oxygen therapy Small right pleural effusion Hypertension Abnormal D-Dimer Hypertensive urgency Cardiology Recommendations: Given the elevated creatinine, a VQ scan is recommended to rule out pulmonary embolism in the presence of an elevated D-dimer and to avoid further nephrotoxic contrast exposure (V/Q scan result was low probability for PE). Optimize guideline-directed medical therapy (GDMT) for heart failure with preserved ejection fraction. Diurese as tolerated to improve volume status, given elevated BNP and mild pulmonary edema. Monitor renal function and electrolytes closely during diuresis. Continue supplemental oxygen with CPAP at night; patient and spouse educated regarding concurrent use. Address anemia. Maintain rate and rhythm control for atrial fibrillation; buttermaker helper full anticoagulation is advised (on Eliquis). Optimize control of hypertension and diabetes mellitus. Reassess volume status, BNP, and renal function daily to guide further diuretic therapy.Recognizing presentation/recent NST finding, ACS at this point is not considered. As ACS is not considered, no indication warranted for ischemic workup at present time. BP was elevated and its control is advised. Proceed with close observation for overt signs of fluid overload Proceed with strict intakes, outputs, and daily weights Proceed with close rate and rhythm surveillance Proceed with close hemodynamic surveillance Proceed with optimized blood pressure control Transfuse to sustain HGB levels above 7.0 Sustain Magnesium level greater than 2.0 Sustain Potassium level greater than 4.0 Follow up renal function and electrolytes IV lasix: 60 mg IV BID Amlodipine: 10 mg daily On Eliquis Seen by Urology Management in Telemetry Will proceed to follow from a cardiac perspective Further recommendations per clinical progression All available labs, EKGs, and images were personally reviewed Plan of care discussed with and agreed upon by patient/family/Primary RN. Prognosis: Guarded Thank you for allowing me to participate in the care of this patient. Further recommendations will depend on clinical progression, hospitalist, and other consultants. Will continue to follow with Primary. If you have any questions, please do not hesitate to contact me. A total of 55 minutes was spent reviewing the patient record, examining the patient, making a diagnostic and therapeutic plan, discussing this plan with medical personnel, following up on diagnostic studies and following the patient for clinical stability excluding any and all procedures. At least 50% of this time was spent in direct, [id number] contact. Dietary Evaluation Review Comments: 1. Offer CCHO-60 Cardiac diet with 50g protein restriction. 2. Initiate iron and MVI supplementation. 3. Provide education and "How to survive: A guide for your journey with Diabetes" 4. Advise pt to follow her Diet and Monitor blood glucose level closely. Expected Outcomes/Goals: Controlled DM, prevent uremic syndrome, healed wounds and Gradual wt loss Plan discussed with: Patient, Other (nurse) JORGE ESPOSITO MD Apr 02, 2025 07:38
[2025-04-02] MEDS: POTASSIUM EFFERVESENT TAB 25 MEQ PO ONE (09:28)
[2025-04-02] MEDS: LIDOCAINE 5% TOPICAL PATCH TOP ONE (16:04)
[2025-04-02] MEDS: DOCUSATE SOD 100 MG CAP PO PRN (20:30)
[2025-04-02] MEDS: ALPRAZolam 0.25 MG TAB PO SCH (23:43)
[2025-04-03] VITALS (13 sets, daily range): BP systolic 156–173; BP diastolic 66–98; PULSE 72–81; RESP 16–20; TEMP 97.8–99.7; O2SAT 96–99
[2025-04-03 06:06] LABS: Hematocrit 30.2 % (36.0-46.0); Hemoglobin 9.8 g/dL (12.2-16.2); Mean Corpuscular Hemoglobin 28.4 pg (28.0-32.0); Mean Corpuscular Volume 87.8 fL (80.0-100.0); Nucleated Red Blood Cells % 0.0 %
[2025-04-03 06:17] LABS: Potassium 3.5 mmol/L (3.5-5.1); Sodium 137 mmol/L (136-145)
[2025-04-03 06:18] LABS: Anion Gap 8 (5-15)
[2025-04-03 06:24] LABS: BUN/Creatinine Ratio 18.9 (10.0-20.0)
[2025-04-03 06:25] LABS: Blood Urea Nitrogen 25 mg/dL (9-23); Calcium 8.0 mg/dL (8.7-10.4); Carbon Dioxide 37 mmol/L (20-31); Chloride 92 mmol/L (98-107); Glucose 190 mg/dL (74-106)
[2025-04-03] MEDS: POLYETHYLENE GLYCOL 17 GM PWDR PO ONE (09:45)
[2025-04-03] MEDS ORDERED: POLYETHYLENE GLYCOL 17 GM PWDR PO PRN (10:00)
--- NOTE | 2025-04-03 11:24 | DVHPNRES ---
Progress Note Date Seen: Apr 02, 2025 Resident Creating Document: TEVIN GALEANA RESIDENT Has the PT tested + for MRSA If YES, has PT been informed?: No Medical Necessity Reason Pt with a Central, PICC or Fol: No Subjective Review of Systems Carlene Velez is a 79-year-old female with past medical history of breast cancer (2022), DM2, hypertension, CHF, depression, coronary artery disease, and chronic kidney failure. The patient came to the ED with chief complaint of 1 day of shortness of breaths. The patient's reports that patient has recently discharged from [facility] 3 days ago for pneumonia. The EMS report the patient was on respiratory distress, O2 saturation 81%, weakness, lethargic, blood sugar of 39 and was given D50 EN route to the ED for further evaluation. Patient was seen and evaluated in the ED, laboratory data shows WBC 8.6, hemoglobin 8.9, hematocrit 27.7, platelets 164, sodium 134, potassium 5.0, BUN 48, creatinine 1.94, glucose 197, calcium 8.2, alkaline phos 141, BNP 996.88, troponin 12, albumin 3.1, blood pressure 117/55, heart rate 68, temperature 98.1 F, O2 saturation 97% on non-rebreather. Chest x-ray revealing cardiomegaly with mild pulmonary edema and small right pleural effusion. Patient was started on IV Lasix, please see medication orders section in the computer. On admission assessment, the patient denies chest pain, no dizziness, headache, diaphoresis, currently on non-rebreather, no diarrhea, nausea, vomiting, fever, no chills. Patient was admitted for further evaluation and medical management. Past Medical History Hypertension, Diabetes, DM, HTN, Chronic kidney failure, CHF, Depression, Coronary artery disease, Breast cancer 2022 Past Surgical History Coronary stents, Left mastectomy 2022, PTCA Family History Reviewed, noncontributory to the management of this case. Past Social History The patient lives at home, denies smoking, alcohol or illicit drugs abuse. Admission Course: On 03/29/25, the patient was evaluated at bedside, VS, labs and chart was reviewed. The patient is alert, no oriented, short responses, confused. The patient with O2 via oxymizer at 5L with O2sat at 94% . Labs report severe anemia 7.5mg/dl, Lactic acid 0.4, UA is positive for UTI, D-dimer is elevated. DVT US doppler was ordered. Creatinine is 1.46. Jerome was draining pink-eliana urine, new UA was ordered. Due to Hb is trending down a rectal exam was performed with oil well services dispatcher ( LILI Petersen), and FOBT sample was sent to the lab. Cultures were ordered: Urine, blood and sputum. The patient was started on Vancomycin and cefepime IV. The patient continues with furosemide 40mg IV. ECHo report is pending at this time. We will continue following this patient progress closely. On 03/30/25, the patient was re-evaluated and examined at bedside. VS, labs and chart was reviewed at bedside. The patient is still on oxymizer at 8L. BP is in the upper side. Due to improved on creatinine lisinopril was added, carvedilol dose was increased to 6.25mg. WBC are 9.1. Patient is on Vancomycin and Cefepime. VQ scan was negative for PE. Chest CT scan showed: Moderate right pleural effusion which appears to be loculated. Left lower lobe atelectasis/consolidation. Right middle lobe and right lower lobe compressive atelectasis. Diffuse interlobular septal thickening. This is likely related to CHF. Cardiomegaly. Pulmonary consult was placed. Hematuria was noted from the Jerome catheter. Eliquis was stopped by cardiology (Dr. Zimmerman). The patient reports today dyspnea and back pain. Pain is been management with [place] 5/325mg. I spoke with the patient's and addressed his questions and concerns. We will continue following up this patient progress closely. On 03/31/25, the patient was re-evaluated and examined at bedside. VS, labs and chart was reviewed. The patient is still on oxymizer at 8L. Pulmonology is on board, they will perform a thoracocentesis, consent was obtained. WBC are 9.8. Hb is improving. Hematuria has stopped. The patient continues with Vancomycin and Cefepime. The patient complains of back pain, her pain is been management with [place] 5/325mg. I spoke with the patient's and addressed his questions and concerns. We will continue following up this patient progress closely. On 04/01/25, the patient was re-evaluated and examined at bedside. VS, labs and chart was reviewed. The patient is still on oxymizer at 8L. Pulmonology is on board, did not performed the thoracocentesis due to the lug effusion is small and is loculated. WBC is trending down to 7.9 Hb is improving to 9.6. Hematuria stopped after put the eliquis on hold. Urology was consulted. Urine cultures showed: Enterococcus faecium, Vancomycin resistant. The patient continues with Cefepime, vancomycin was discontinued and replaced with Linezolid due to sensitivity test. The patient reports her back pain has improved with analgesia. I spoke with the patient's and addressed his questions and concerns. We will continue following up this patient progress closely. On 04/02/25, the patient was re-evaluated and examined at bedside. VS, labs and chart was reviewed. Creatinine levels are improving. Bi-pap was placed yesterday due to CO2 retention, but later was discontinued due to improvement, today with oxymizer at 6L. Pulmonology is on board, new xray showed improvement of pneumonia.. WBC is trending down to 7.7 Hb is stab. Hematuria stopped after put the eliquis on hold. Urology was consulted. Urine cultures showed: Enterococcus faecium, Vancomycin resistant. The patient continues with Cefepime and linezolid. The patient reports her back pain has improved with analgesia. PT consult was placed for evaluation. I spoke with the patient's and addressed his questions and concerns. We will continue following up this patient progress closely. ROS: Constitutional: Yes: general Weakness improving; No: Fever, Chills, Sweats, Malaise Eyes: No: Pain, Vision change, Conjunctivae inflammation, Eyelid inflammation, Other, Redness ENT: No: Ear pain, Ear discharge, Nose pain, Nose discharge, Nose congestion, Mouth pain, Mouth swelling, Throat pain, Throat swelling, Other Respiratory: Shortness of breath improving, (SOB at rest); No: Cough, Dry, SOB with excertion, Wheezing, Hemoptysis, Pleuritic Pain, Sputum, Wheezing Cardiovascular: No: Chest Pain, Palpitations, Orthopnea, Paroxysmal Noc. Dyspnea, Edema, Lt Headedness, Other Gastrointestinal: No: Nausea, Vomiting, Abdominal Pain, Diarrhea, Constipation, Melena, Hematochezia, Other Genitourinary: No Dysuria, No Frequency, No Incontinence, No Hematuria, No Retention, No Other Musculoskeletal: Back pain improving No: other, neck pain, shoulder pain, arm pain, hand pain, leg pain, foot pain Skin: No: Rash, Lesions, Jaundice, Bruising, Other Neurological: No: Weakness, Numbness, Incoordination, Change in speech, Confusion, Seizures, Other Coded Allergies: NO KNOWN ALLERGIES (Unverified , 01/28/17) Objective vital signs Vital Sign Date Time Temp Pulse Resp B/P (MAP) Pulse Ox O2 Delivery O2 Flow Rate FiO2 04/02/25 16:20 99.8 76 16 142/68 (92) 98 99.8 04/02/25 08:06 Oxymizer 6.0 04/02/25 08:06 N/A Total Intake and Output 04/01/25 04/01/25 04/02/25 15:00 23:00 07:00 Intake Total 250 ml 200 ml 450 ml Output Total 650 ml 500 ml Balance 250 ml -450 ml -50 ml medications Current Medications Medications Dose Ordered Sig/Cayla Route Start Time Stop Time Status Last Admin Dose Admin Hydralazine HCl 10 mg Q6HP PRN IV 03/29/25 02:15 04/02/25 05:13 10 MG Diagnostic Test (Pha) 1 strip ACHS 03/29/25 07:00 04/02/25 17:00 1 STRIP Insulin Human Regular HS SC 03/29/25 22:00 04/01/25 22:13 2 UNITS Insulin Human Regular AC SC 03/29/25 07:00 04/02/25 17:00 2 UNITS Dextrose 50 ml UD PRN IV 03/29/25 02:15 Sodium Chloride 10 ml Q8HR IV 03/29/25 06:00 04/02/25 14:00 10 ML Acetaminophen/ Hydrocodone Bitart 1 tab Q4HP PRN PO 03/29/25 02:15 04/02/25 16:03 1 TAB Ondansetron HCl 4 mg Q4HP PRN IV 03/29/25 02:15 04/02/25 16:10 4 MG Docusate Sodium 100 mg BIDPRN PRN PO 03/29/25 02:15 Acetaminophen 650 mg Q6HP PRN PO 03/29/25 02:15 Nitroglycerin 0.4 mg Q5MINP PRN SL 03/29/25 04:30 Morphine Sulfate 2 mg Q30M PRN IV 03/29/25 04:30 Albuterol 2.5 mg Q4HPRN PRN NEB 03/29/25 20:45 03/30/25 04:59 2.5 MG Ipratropium [place] 0.5 mg Q4HPRN PRN NEB 03/29/25 20:45 03/30/25 04:58 0.5 MG Cefepime HCl 50 ml @ 12.5 mls/hr Q12H IV 03/30/25 18:00 04/02/25 18:05 12.5 MLS/HR Lisinopril 20 mg DAILY PO 03/31/25 10:00 04/02/25 09:30 20 MG Carvedilol 6.25 mg Q12HR PO 03/30/25 22:00 04/02/25 09:29 6.25 MG Furosemide 60 mg BIDD IV 03/31/25 18:00 04/01/25 18:16 60 MG Linezolid 300 ml @ 150 mls/hr Q12HR IV 03/31/25 22:00 04/02/25 10:08 150 MLS/HR Amlodipine Besylate 10 mg DAILY PO 04/01/25 10:00 04/02/25 09:31 10 MG Apixaban 2.5 mg BID PO 04/01/25 10:00 04/02/25 09:29 2.5 MG Alprazolam 0.25 mg HSPRN PO 04/02/25 22:00 Examination Examination General Appearance: Alert, lethargic, oriented in person, place and time. Cooperative, with Oxygen oxymizer at 6L with O2sat at 96% HEENT: Atraumatic, PERRLA, EOMI, Mucous membr. moist/pink Respiratory: middy reduced right lung expansion. mildly reduced bilateral lung sounds, more in the left, crackles in the bases, improving. Cardiovascular: Regular rate, Normal S1, Normal S2, No murmurs Abdominal: Normal bowel sounds, Soft, No tenderness, No hepatospenomegaly, No masses Extremities: No clubbing, No cyanosis, No edema, Normal pulses, No tenderness/swelling. ecchymosis in right upper arm : clean urine coming out of the Jerome catheter. Skin: No rashes, No significant lesion Neuro: Generalized weakness has improved. laboratory and microbiology Laboratory Tests 04/02/25 05:44 Test 04/02/25 05:44 Range/Units Serum Glucose 156 H 74-106 mg/dL Microbiology Date/Time Source Procedure Growth Status 03/29/25 12:28 Nose MRSA Screen - Final Complete 03/29/25 12:27 Voided Urine Urine Culture - Final Enterococcus faecium - VRE Complete 03/29/25 01:30 Blood Blood Culture - Preliminary NO GROWTH AFTER 72 HOURS OF INCUBATION. Resulted Problem List/Assessment/Plan Problem List/Assessment/Plan #Sepsis likely due to Pneumonia, gram +/- #Acute on chronic hypoxic respiratory failure #Pulmonary congestion #Moderate Pulmonary effusion #Acute on chronic systolic/Diastolic CHF exacerbation. Oxygen by Oxymizer 8L Telemetry BNP:996.25 ECHo D2 IV Antibiotics: Vancomycin and Cefepime. MedNeb Furosemide 40mg IV daily Blood cultures: Negative at this time Urine culture: positive for enteroccocus and yeast Sputum culture: pending Pulmonary consult: Thoracocentesis cancelled due to small loculated effusion. #Complicated acute UTI, possible cystitis #acute Hematuria Urine culture: Enteroccocus fasecium-VRE Jerome catheter Urology consult Linezolid sensitive. Linezolid IV #Possible acute DVT #Possible acute Pulmonary embolus. Ruled out. US doppler bilateral lower extremities D-dimer elevated: 4.83 VQ scan: negative for PE #Chronic CAD Hold: Eliquis due to hematuria #CKD stage 3b on CHRISTIANE Avoid nephrotoxic drugs Monitor Crea/ BUN #Acute Severe Anemia Improving Hb:9.3mg/dl FOBT: pending result. Iron test B12 Type and screen #Acute Generalized weakness likely due to Hypoglycemia Accucheck Dextrose 50ml if blood sugar<60 Resolving PT evaluation requested #Chronic DM type 2 with hyperglycemia Insulin sliding scale HbA1c 9.5% #Obesity 39.5. Counseling about healthy life style DVT prophylaxis: patient on Eliquis was placed on hold due to hematuria. Diet: Cardiac diet Goals of care discussed with the patient for more than 35 minutes: Code Status: Full code PCP: Dr. Kirkpatrick Case discussed with Dr. Garcia Plan discussed with: Patient, Spouse My Orders My Orders Orders - TEVIN GALEANA RESIDENT Procedure Category Date Status Time Pt Request For Service PT 04/02/25 Logged 07:51 Complete Blood Count LAB 04/03/25 Verified 04:00 Basic Metabolic Panel LAB 04/03/25 Verified 04:00 Dietary Evaluation Review Comments: 1. Offer CCHO-60 Cardiac diet with 50g protein restriction. 2. Initiate iron and MVI supplementation. 3. Provide education and "How to survive: A guide for your journey with Diabetes" 4. Advise pt to follow her Diet and Monitor blood glucose level closely. Expected Outcomes/Goals: Controlled DM, prevent uremic syndrome, healed wounds and Gradual wt loss Date of Service: Apr 02, 2025 Billing Provider: VISHAL GARCIA MD Common Visit Codes: [id number] INP/OBS CARE(HIGH) TEVIN GALEANA RESIDENT Apr 02, 2025 19:15 VISHAL GARCIA MD Apr 02, 2025 22:49
--- NOTE | 2025-04-03 11:29 | DVHPN2 ---
[facility] DOS: 04/02/2025 Patient seen and examined at bedside. Currently on supplemental oxygen Overnight events reviewed. Changes from previous H/P or p: No Changes Eyes: No Pain, No Vision change, No Conjunctivae inflammation, No Eyelid inflammation, No Other, No Redness ENT: No Ear pain, No Ear discharge, No Nose pain, No Nose discharge, No Nose congestion, No Mouth pain, No Mouth swelling, No Throat pain, No Throat swelling, No Other Cardiovascular: No Chest Pain, No Palpitations, No Orthopnea, No Paroxysmal Noc. Dyspnea, No Edema, No Lt Headedness, No Other Respiratory: No Cough, No Dry; Shortness of breath; No SOB with excertion, No Wheezing, No Hemoptysis, No Pleuritic Pain, No Sputum; Other (SOB at rest) Gastrointestinal: No Nausea, No Vomiting, No Abdominal Pain, No Diarrhea, No Constipation, No Melena, No Hematochezia, No Other Genitourinary: No Dysuria, No Frequency, No Incontinence, No Hematuria, No Retention, No Other Musculoskeletal: No other, No neck pain, No shoulder pain, No arm pain, No back pain, No hand pain, No leg pain, No foot pain Skin: No Rash, No Lesions, No Jaundice, No Bruising, No Other Objective Vitals Vital Signs Date Time Temp Pulse Resp B/P (MAP) Pulse Ox O2 Delivery O2 Flow Rate FiO2 04/02/25 23:45 71 173/76 04/02/25 21:00 99.8 18 99 99.8 04/02/25 20:37 Oxymizer 6.0 04/02/25 20:37 N/A Intake/Output Intake and Output 04/02/25 07:00 Intake Total 900 ml Output Total 1150 ml Balance -250 ml Intake Oral 850 ml IV Total 50 ml Output Urine Total 1150 ml Exam Gen.: Patient lying in bed in no apparent distress. On supplemental oxygen Head: Normocephalic, atraumatic. Eyes: EOMI/PERRLA. Ears: Normal hearing. Normal anatomy. Neck/trachea: Trachea midline, supple. Nose: Normal external anatomy. Mouth: Moist mucous membranes. Chest: Decreased air entry bilaterally. No wheezing or rhonchi. Cardiovascular: Positive S1, positive S2. Regular rate and rhythm. Abdomen: Positive bowel sounds in all 4 quadrants. Soft, non-tender, non- distended. : Deferred. Rectal: Deferred. Skin: Warm, dry. Intact. Extremities: 2+ radial pulses bilaterally. No lower extremity edema. Neuro: Awake, alert, oriented x3. No gross motor or sensory deficits. Cranial nerves II through XII intact. Gait not assessed. Medications Current Medications Medications Dose Ordered Sig/Cayla Route Start Time Stop Time Status Last Admin Dose Admin Hydralazine HCl 10 mg Q6HP PRN IV 03/29/25 02:15 04/02/25 05:13 10 MG Diagnostic Test (Pha) 1 strip ACHS 03/29/25 07:00 04/02/25 17:00 1 STRIP Insulin Human Regular HS SC 03/29/25 22:00 04/01/25 22:13 2 UNITS Insulin Human Regular AC SC 03/29/25 07:00 04/02/25 17:00 2 UNITS Dextrose 50 ml UD PRN IV 03/29/25 02:15 Sodium Chloride 10 ml Q8HR IV 03/29/25 06:00 04/02/25 14:00 10 ML Acetaminophen/ Hydrocodone Bitart 1 tab Q4HP PRN PO 03/29/25 02:15 04/02/25 20:31 1 TAB Ondansetron HCl 4 mg Q4HP PRN IV 03/29/25 02:15 04/02/25 20:30 4 MG Docusate Sodium 100 mg BIDPRN PRN PO 03/29/25 02:15 04/02/25 20:30 100 MG Acetaminophen 650 mg Q6HP PRN PO 03/29/25 02:15 Nitroglycerin 0.4 mg Q5MINP PRN SL 03/29/25 04:30 Morphine Sulfate 2 mg Q30M PRN IV 03/29/25 04:30 Albuterol 2.5 mg Q4HPRN PRN NEB 03/29/25 20:45 03/30/25 04:59 2.5 MG Ipratropium [place] 0.5 mg Q4HPRN PRN NEB 03/29/25 20:45 03/30/25 04:58 0.5 MG Cefepime HCl 50 ml @ 12.5 mls/hr Q12H IV 03/30/25 18:00 04/02/25 18:05 12.5 MLS/HR Lisinopril 20 mg DAILY PO 03/31/25 10:00 04/02/25 09:30 20 MG Carvedilol 6.25 mg Q12HR PO 03/30/25 22:00 04/02/25 23:45 6.25 MG Furosemide 60 mg BIDD IV 03/31/25 18:00 04/01/25 18:16 60 MG Linezolid 300 ml @ 150 mls/hr Q12HR IV 03/31/25 22:00 04/02/25 23:43 150 MLS/HR Amlodipine Besylate 10 mg DAILY PO 04/01/25 10:00 04/02/25 09:31 10 MG Apixaban 2.5 mg BID PO 04/01/25 10:00 04/02/25 23:43 2.5 MG Alprazolam 0.25 mg HSPRN PO 04/02/25 22:00 04/02/25 23:43 0.25 MG Laboratory Results Laboratory Tests 04/02/25 05:44 Chemistry Test 04/02/25 05:44 Calcium Level 8.2 mg/dL (8.7-10.4) L Magnesium Level 1.4 mg/dL (1.6-2.6) L Urinalysis Test 03/29/25 04:30 Urine Color Dark yellow (Yellow) Urine Clarity Ex.turbid (Clear) Urine pH 5.5 (5.0-9.0) Urine Specific [place] 1.010 (1.001-1.035) Urine Protein 1+ (Negative) H Urine Ketones Negative (Negative) Urine Blood 2+ /uL (Negative) H Urine Nitrite Negative (Negative) Urine Bilirubin Negative (Negative) Urine Urobilinogen Normal mg/dL (Negative) Urine Leukocyte Esterase 3+ /uL (Negative) Urine RBC 96 /hpf (0 - 4) Urine WBC Clumps Present /hpf (None Seen) Urine Microscopic WBC 2737 /HPF (0-5) H Urine Squamous Epithelial Cells None seen /hpf (<5) Urine Bacteria None seen /hpf (None Seen) Urine Yeast (Budding) Loaded /hpf (None Seen) Urine Glucose Normal mg/dL (Normal) Microbiology Microbiology Date/Time Source Procedure Growth Status 03/29/25 12:28 Nose MRSA Screen - Final Complete 03/29/25 12:27 Voided Urine Urine Culture - Final Enterococcus faecium - VRE Complete 03/29/25 01:30 Blood Blood Culture - Preliminary NO GROWTH AFTER 72 HOURS OF INCUBATION. Resulted Assessment/Plan Assessment/Plan Impression: Acute hypoxic respiratory failure Dependence on supplemental oxygen Loculated pleural effusion Atelectasis Obesity, BMI 36.3 Events: Currently on supplemental oxygen On 6 LPM Oxymizer Taper O2 as tolerated. BIPAP PRN due to hypercarbia. Limited chest U/S of right lung revealed right loculated pleural effusion. Chest x-ray on 04/01 shows improvement; right lung opacities persist, pulmonary vascular congestion. Patient is improving slowly. Continue diuresis with Lasix Maintain euvolemia Monitor renal function. Monitor electrolytes. Supplement as necessary. Continue bronchodilators Continue antibiotics Incentive spirometry On Eliquis PO BID Monitor renal function. Monitor electrolytes. Supplement as necessary. Potassium supplementation Physical therapy V/Q scan shows low probability for PE. Labs and imaging reviewed. Rest of plan as noted below. Plan: Continue supplemental oxygen Titrate to keep O2 sats above 92%. BiPAP PRN Chest CT revealed moderate right pleural effusion which appears to be loculated. Left lower lobe atelectasis/consolidation. Right middle lobe and right lower lobe compressive atelectasis. Findings c/w CHF. Continue bronchodilators. Continue antibiotics Incentive spirometry Diurese with Lasix Monitor renal function. Monitor electrolytes. Supplement as necessary. Monitor ins and outs. Recommend diet and lifestyle modifications for weight reduction Obesity complicates all care DVT prophylaxis. Prognosis: Poor given patient's multiple co-morbidities. Rest of plan per hospitalist and other consultants. Thank you, Dr. Howard, for allowing me to participate in this patient's care. Further recommendations will depend on the patient's clinical course. Please do not hesitate to contact me if you have any questions or concerns. This medical document was created using an electronic medical record system with [employer] dictation system. Although these documentations are being carefully reviewed, there may still be some phonetic and typographical changes. The errors are purely typographical, due to imperfection on the software program, and do not reflect any compromise in the patient's medical care. Plan discussed with: Patient, Other (LILI Crowley) Visit Coding Pulmonary Billing Provider: JAN GONCALVES MD Date of Service if different f: Apr 02, 2025 Common Visit Codes: [id number] INP/OBS CARE(HIGH) JAN GONCALVES MD Apr 02, 2025 23:51
--- NOTE | 2025-04-03 11:40 | DVHPN2 ---
Progress Note - Dictate Date Seen: Apr 03, 2025 Has the PT tested + for MRSA If YES, has PT been informed?: No Medical Necessity Reason Pt with a Central, PICC or Fol: No vital signs Vital Sign Date Time Temp Pulse Resp B/P (MAP) Pulse Ox O2 Delivery O2 Flow Rate FiO2 04/03/25 05:00 98.4 75 20 156/66 (96) 98 98.4 04/03/25 03:48 Facial BiPAP Mask 40 04/02/25 20:37 6.0 Total Intake and Output 04/02/25 04/02/25 04/03/25 15:00 23:00 07:00 Intake Total 540 ml 150 ml 320 ml Output Total 500 ml 400 ml Balance 540 ml -350 ml -80 ml medications Current Medications Medications Dose Ordered Sig/Cayla Route Start Time Stop Time Status Last Admin Dose Admin Hydralazine HCl 10 mg Q6HP PRN IV 03/29/25 02:15 04/02/25 05:13 10 MG Diagnostic Test (Pha) 1 strip ACHS 03/29/25 07:00 04/03/25 07:16 1 STRIP Insulin Human Regular HS SC 03/29/25 22:00 04/03/25 00:25 3 UNITS Insulin Human Regular AC SC 03/29/25 07:00 04/03/25 06:24 6 UNITS Dextrose 50 ml UD PRN IV 03/29/25 02:15 Sodium Chloride 10 ml Q8HR IV 03/29/25 06:00 04/03/25 06:00 10 ML Acetaminophen/ Hydrocodone Bitart 1 tab Q4HP PRN PO 03/29/25 02:15 04/02/25 20:31 1 TAB Ondansetron HCl 4 mg Q4HP PRN IV 03/29/25 02:15 04/03/25 06:46 4 MG Docusate Sodium 100 mg BIDPRN PRN PO 03/29/25 02:15 04/02/25 20:30 100 MG Acetaminophen 650 mg Q6HP PRN PO 03/29/25 02:15 Nitroglycerin 0.4 mg Q5MINP PRN SL 03/29/25 04:30 Morphine Sulfate 2 mg Q30M PRN IV 03/29/25 04:30 Albuterol 2.5 mg Q4HPRN PRN NEB 03/29/25 20:45 03/30/25 04:59 2.5 MG Ipratropium [place] 0.5 mg Q4HPRN PRN NEB 03/29/25 20:45 03/30/25 04:58 0.5 MG Cefepime HCl 50 ml @ 12.5 mls/hr Q12H IV 03/30/25 18:00 04/02/25 18:05 12.5 MLS/HR Lisinopril 20 mg DAILY PO 03/31/25 10:00 04/02/25 09:30 20 MG Carvedilol 6.25 mg Q12HR PO 03/30/25 22:00 04/02/25 23:45 6.25 MG Furosemide 60 mg BIDD IV 03/31/25 18:00 04/01/25 18:16 60 MG Linezolid 300 ml @ 150 mls/hr Q12HR IV 03/31/25 22:00 04/02/25 23:43 150 MLS/HR Amlodipine Besylate 10 mg DAILY PO 04/01/25 10:00 04/02/25 09:31 10 MG Apixaban 2.5 mg BID PO 04/01/25 10:00 04/02/25 23:43 2.5 MG Alprazolam 0.25 mg HSPRN PO 04/02/25 22:00 04/02/25 23:43 0.25 MG laboratory and microbiology Laboratory Tests 04/03/25 05:34 Test 04/03/25 05:34 Range/Units Serum Glucose 190 H 74-106 mg/dL Assessment/Plan Seen and examined on tele. Restarted on Eliquis. Seen by Urology The patient is a 79-year-old female known to our clinic who presented to the emergency department on 03/29/2025 for shortness of breath. Notably, she was recently discharged from [facility] three days prior following treatment for pneumonia. Her reports that she was noted to have an oxygen saturation of 81% at home associated with weakness and lethargy. He also stated that he was unaware supplemental oxygen could be used in conjunction with CPAP therapy, which is likely the cause of her hypoxia. Laboratory results revealed hemoglobin 7.5, D-dimer 4.83 (with subsequent bilateral lower extremity Doppler ultrasound negative for DVT), BNP 996.8, potassium 4.2, creatinine 1.94, high-sensitivity troponin 12, with repeat 12, and hemoglobin A1c 9.5%. Iron studies showed serum iron 32 and TIBC 212. Urinalysis was positive for leukocytes. Chest X-ray demonstrated cardiomegaly with mild pulmonary edema and a small right pleural effusion. NAD, no JVD, pink and wet mucosa, no carotid bruit, not using accessory muscles of breathing. Scattered rhonchi in lungs+, Cardiac: irregular, no thrill, no gallop, Abdomen; soft, nontender, no gross mass/hepatomegally, no peripheral edema, no gross lateralized neurologic deficit Past medical history includes coronary artery disease status post prior PCI to the mid LAD; breast cancer status post left mastectomy; diabetes mellitus; hypertension; chronic diastolic heart failure; COPD on home oxygen therapy; peripheral neuropathy; anxiety; depression; GERD; paroxysmal atrial fibrillation on chronic anticoagulation; status post previous hand surgery, hysterectomy, and left mastectomy. Lexiscan stress test (12/11/2023) revealed no evidence of gross ischemia with an ejection fraction of 70%. Echocardiogram ([facility] 01/09/2024): Technically difficult study. Left ventricle demonstrates mildly increased wall thickness with stage I diastolic dysfunction. Right ventricular size and function are normal. Left ventricular ejection fraction (LVEF) is 60% by visual estimation. Right atrium is mildly dilated; mild left atrial dilation is present. Aortic and mitral valves open adequately. Trace mitral regurgitation, trace pulmonic regurgitation, and mild tricuspid regurgitation noted. Estimated RVSP is 24 mmHg. Echocardiogram ([facility] 03/05/2025): Technically difficult study. LVEF is 6570% by visual estimation. Mild left ventricular hypertrophy and stage I diastolic dysfunction are present. Right ventricle is mildly dilated with normal function. Left atrium is severely dilated; moderate right atrial dilation noted. Tricuspid valve demonstrates mild regurgitation with RVSP 55 mmHg. Trace pulmonic regurgitation observed. Mitral valve structure is normal with mildly restricted motion and mild leaflet thickening. There is moderate posterior mitral annular calcification and mild mitral regurgitation without evidence of mitral stenosis or aortic stenosis. Echocardiogram ([facility] 03/29/2025): LVEF 60% by visual estimation. Severe mitral annular calcification is noted with moderate mitral stenosis and a mean transmitral gradient of 5 mmHg. Left atrium is enlarged. [id number] tricuspid regurgitation is present. V/Q scan: Low probability for PE. Assessment: Coronary artery disease, status post prior PCI to mid LAD; no ischemia on Lexiscan (12/11/2023) Elevated BNP consistent with mild volume overload and diastolic dysfunction Anemia, likely secondary to iron deficiency (iron 32, TIBC 212) Moderate mitral stenosis secondary to severe mitral annular calcification Acute on chronic diastolic heart failure with preserved ejection fraction Chronic kidney disease with acute kidney injury (creatinine 1.94) Severe left atrial enlargement and moderate tricuspid regurgitation. Paroxysmal atrial fibrillation on chronic anticoagulation History of breast cancer status post mastectomy Diabetes mellitus with A1c 9.5% COPD on home oxygen therapy Small right pleural effusion Hypertension Abnormal D-Dimer Hypertensive urgency Cardiology Recommendations: Given the elevated creatinine, a VQ scan is recommended to rule out pulmonary embolism in the presence of an elevated D-dimer and to avoid further nephrotoxic contrast exposure (V/Q scan result was low probability for PE). Optimize guideline-directed medical therapy (GDMT) for heart failure with preserved ejection fraction. Diurese as tolerated to improve volume status, given elevated BNP and mild pulmonary edema. Monitor renal function and electrolytes closely during diuresis. Continue supplemental oxygen with CPAP at night; patient and spouse educated regarding concurrent use. Address anemia. Maintain rate and rhythm control for atrial fibrillation; termination clerk full anticoagulation is advised (on Eliquis). Optimize control of hypertension and diabetes mellitus. Reassess volume status, BNP, and renal function daily to guide further diuretic therapy.Recognizing presentation/recent NST finding, ACS at this point is not considered. As ACS is not considered, no indication warranted for ischemic workup at present time. BP was elevated and its control is advised. Proceed with close observation for overt signs of fluid overload Proceed with strict intakes, outputs, and daily weights Proceed with close rate and rhythm surveillance Proceed with close hemodynamic surveillance Proceed with optimized blood pressure control Transfuse to sustain HGB levels above 7.0 Sustain Magnesium level greater than 2.0 Sustain Potassium level greater than 4.0 Follow up renal function and electrolytes IV lasix: 60 mg IV BID Amlodipine: 10 mg daily On Eliquis Seen by Urology Management in Telemetry Will proceed to follow from a cardiac perspective Further recommendations per clinical progression Cardiac flores, stable and can be followed as outpatient All available labs, EKGs, and images were personally reviewed Plan of care discussed with and agreed upon by patient/family/Primary RN. Prognosis: Guarded Thank you for allowing me to participate in the care of this patient. Further recommendations will depend on clinical progression, hospitalist, and other consultants. Will continue to follow with Primary. If you have any questions, please do not hesitate to contact me. A total of 55 minutes was spent reviewing the patient record, examining the patient, making a diagnostic and therapeutic plan, discussing this plan with medical personnel, following up on diagnostic studies and following the patient for clinical stability excluding any and all procedures. At least 50% of this time was spent in direct, [id number] contact. Dietary Evaluation Review Comments: 1. Offer CCHO-60 Cardiac diet with 50g protein restriction. 2. Initiate iron and MVI supplementation. 3. Provide education and "How to survive: A guide for your journey with Diabetes" 4. Advise pt to follow her Diet and Monitor blood glucose level closely. Expected Outcomes/Goals: Controlled DM, prevent uremic syndrome, healed wounds and Gradual wt loss Plan discussed with: Other (nurse) JORGE ESPOSITO MD Apr 03, 2025 07:53
--- NOTE | 2025-04-03 11:42 | DVHPNRES ---
Progress Note Date Seen: Apr 03, 2025 Resident Creating Document: TEVIN GALEANA RESIDENT Has the PT tested + for MRSA If YES, has PT been informed?: No Medical Necessity Reason Pt with a Central, PICC or Fol: No Subjective Review of Systems Carlene Velez is a 79-year-old female with past medical history of breast cancer (2022), DM2, hypertension, CHF, depression, coronary artery disease, and chronic kidney failure. The patient came to the ED with chief complaint of 1 day of shortness of breaths. The patient's reports that patient has recently discharged from [facility] 3 days ago for pneumonia. The EMS report the patient was on respiratory distress, O2 saturation 81%, weakness, lethargic, blood sugar of 39 and was given D50 EN route to the ED for further evaluation. Patient was seen and evaluated in the ED, laboratory data shows WBC 8.6, hemoglobin 8.9, hematocrit 27.7, platelets 164, sodium 134, potassium 5.0, BUN 48, creatinine 1.94, glucose 197, calcium 8.2, alkaline phos 141, BNP 996.88, troponin 12, albumin 3.1, blood pressure 117/55, heart rate 68, temperature 98.1 F, O2 saturation 97% on non-rebreather. Chest x-ray revealing cardiomegaly with mild pulmonary edema and small right pleural effusion. Patient was started on IV Lasix, please see medication orders section in the computer. On admission assessment, the patient denies chest pain, no dizziness, headache, diaphoresis, currently on non-rebreather, no diarrhea, nausea, vomiting, fever, no chills. Patient was admitted for further evaluation and medical management. Past Medical History Hypertension, Diabetes, DM, HTN, Chronic kidney failure, CHF, Depression, Coronary artery disease, Breast cancer 2022 Past Surgical History Coronary stents, Left mastectomy 2022, PTCA Family History Reviewed, noncontributory to the management of this case. Past Social History The patient lives at home, denies smoking, alcohol or illicit drugs abuse. Admission Course: On 03/29/25, the patient was evaluated at bedside, VS, labs and chart was reviewed. The patient is alert, no oriented, short responses, confused. The patient with O2 via oxymizer at 5L with O2sat at 94% . Labs report severe anemia 7.5mg/dl, Lactic acid 0.4, UA is positive for UTI, D-dimer is elevated. DVT US doppler was ordered. Creatinine is 1.46. Jerome was draining pink-eliana urine, new UA was ordered. Due to Hb is trending down a rectal exam was performed with lat[place] studies director ( LILI Petersen), and FOBT sample was sent to the lab. Cultures were ordered: Urine, blood and sputum. The patient was started on Vancomycin and cefepime IV. The patient continues with furosemide 40mg IV. ECHo report is pending at this time. We will continue following this patient progress closely. On 03/30/25, the patient was re-evaluated and examined at bedside. VS, labs and chart was reviewed at bedside. The patient is still on oxymizer at 8L. BP is in the upper side. Due to improved on creatinine lisinopril was added, carvedilol dose was increased to 6.25mg. WBC are 9.1. Patient is on Vancomycin and Cefepime. VQ scan was negative for PE. Chest CT scan showed: Moderate right pleural effusion which appears to be loculated. Left lower lobe atelectasis/consolidation. Right middle lobe and right lower lobe compressive atelectasis. Diffuse interlobular septal thickening. This is likely related to CHF. Cardiomegaly. Pulmonary consult was placed. Hematuria was noted from the Jerome catheter. Eliquis was stopped by cardiology (Dr. Zimmerman). The patient reports today dyspnea and back pain. Pain is been management with [place] 5/325mg. I spoke with the patient's and addressed his questions and concerns. We will continue following up this patient progress closely. On 03/31/25, the patient was re-evaluated and examined at bedside. VS, labs and chart was reviewed. The patient is still on oxymizer at 8L. Pulmonology is on board, they will perform a thoracocentesis, consent was obtained. WBC are 9.8. Hb is improving. Hematuria has stopped. The patient continues with Vancomycin and Cefepime. The patient complains of back pain, her pain is been management with [place] 5/325mg. I spoke with the patient's and addressed his questions and concerns. We will continue following up this patient progress closely. On 04/01/25, the patient was re-evaluated and examined at bedside. VS, labs and chart was reviewed. The patient is still on oxymizer at 8L. Pulmonology is on board, did not performed the thoracocentesis due to the lug effusion is small and is loculated. WBC is trending down to 7.9 Hb is improving to 9.6. Hematuria stopped after put the eliquis on hold. Urology was consulted. Urine cultures showed: Enterococcus faecium, Vancomycin resistant. The patient continues with Cefepime, vancomycin was discontinued and replaced with Linezolid due to sensitivity test. The patient reports her back pain has improved with analgesia. I spoke with the patient's and addressed his questions and concerns. We will continue following up this patient progress closely. On 04/02/25, the patient was re-evaluated and examined at bedside. VS, labs and chart was reviewed. Creatinine levels are improving. Bi-pap was placed yesterday due to CO2 retention, but later was discontinued due to improvement, today with oxymizer at 6L. Pulmonology is on board, new xray showed improvement of pneumonia.. WBC is trending down to 7.7 Hb is stab. Hematuria stopped after put the eliquis on hold. Urology was consulted. Urine cultures showed: Enterococcus faecium, Vancomycin resistant. The patient continues with Cefepime and linezolid. The patient reports her back pain has improved with analgesia. PT consult was placed for evaluation. I spoke with the patient's and addressed his questions and concerns. We will continue following up this patient progress closely. On 04/03/25, the patient was re-evaluated and examined at bedside. VS, labs and chart was reviewed. Creatinine levels are improving. Today, with oxymizer is at 5L. Pulmonology is on board, patient is receiving medneb scheduled. WBC is 9.3 Hb is improving 9.8mg/dl. . The patient continues with Cefepime and linezolid. The patient reports her back pain has improved with analgesia. Also, wound care is onboard for wound in the perianal area. PT consult was placed for evaluation for a possible SNF upon discharge. I spoke with the patient's and addressed his questions and concerns, the patient and her agree with the current plan. We will continue following up this patient progress closely. ROS: Constitutional: Yes: general Weakness improving; No: Fever, Chills, Sweats, Malaise Eyes: No: Pain, Vision change, Conjunctivae inflammation, Eyelid inflammation, Other, Redness ENT: No: Ear pain, Ear discharge, Nose pain, Nose discharge, Nose congestion, Mouth pain, Mouth swelling, Throat pain, Throat swelling, Other Respiratory: Shortness of breath improving, (SOB at rest); No: Cough, Dry, SOB with excertion, Wheezing, Hemoptysis, Pleuritic Pain, Sputum, Wheezing Cardiovascular: No: Chest Pain, Palpitations, Orthopnea, Paroxysmal Noc. Dyspnea, Edema, Lt Headedness, Other Gastrointestinal: No: Nausea, Vomiting, Abdominal Pain, Diarrhea, Constipation, Melena, Hematochezia, Other Genitourinary: No Dysuria, No Frequency, No Incontinence, No Hematuria, No Retention, No Other Musculoskeletal: Back pain improving No: other, neck pain, shoulder pain, arm pain, hand pain, leg pain, foot pain Skin: No: Rash, Lesions, Jaundice, Bruising, Other Neurological: No: Weakness, Numbness, Incoordination, Change in speech, Confusion, Seizures, Other Coded Allergies: NO KNOWN ALLERGIES (Unverified , 01/28/17) Objective vital signs Vital Sign Date Time Temp Pulse Resp B/P (MAP) Pulse Ox O2 Delivery O2 Flow Rate FiO2 04/03/25 09:02 99 Oxymizer 4 N/A 04/03/25 08:10 99.4 74 16 160/72 (101) 99.4 Total Intake and Output 04/02/25 04/02/25 04/03/25 15:00 23:00 07:00 Intake Total 540 ml 150 ml 320 ml Output Total 500 ml 400 ml Balance 540 ml -350 ml -80 ml medications Current Medications Medications Dose Ordered Sig/Cayla Route Start Time Stop Time Status Last Admin Dose Admin Hydralazine HCl 10 mg Q6HP PRN IV 03/29/25 02:15 04/02/25 05:13 10 MG Diagnostic Test (Pha) 1 strip ACHS 03/29/25 07:00 04/03/25 07:16 1 STRIP Insulin Human Regular HS SC 03/29/25 22:00 04/03/25 00:25 3 UNITS Insulin Human Regular AC SC 03/29/25 07:00 04/03/25 06:24 6 UNITS Dextrose 50 ml UD PRN IV 03/29/25 02:15 Sodium Chloride 10 ml Q8HR IV 03/29/25 06:00 04/03/25 06:00 10 ML Acetaminophen/ Hydrocodone Bitart 1 tab Q4HP PRN PO 03/29/25 02:15 04/02/25 20:31 1 TAB Ondansetron HCl 4 mg Q4HP PRN IV 03/29/25 02:15 04/03/25 06:46 4 MG Docusate Sodium 100 mg BIDPRN PRN PO 03/29/25 02:15 04/02/25 20:30 100 MG Acetaminophen 650 mg Q6HP PRN PO 03/29/25 02:15 Nitroglycerin 0.4 mg Q5MINP PRN SL 03/29/25 04:30 Morphine Sulfate 2 mg Q30M PRN IV 03/29/25 04:30 Albuterol 2.5 mg Q4HPRN PRN NEB 03/29/25 20:45 03/30/25 04:59 2.5 MG Ipratropium [place] 0.5 mg Q4HPRN PRN NEB 03/29/25 20:45 03/30/25 04:58 0.5 MG Cefepime HCl 50 ml @ 12.5 mls/hr Q12H IV 03/30/25 18:00 04/02/25 18:05 12.5 MLS/HR Lisinopril 20 mg DAILY PO 03/31/25 10:00 04/02/25 09:30 20 MG Carvedilol 6.25 mg Q12HR PO 03/30/25 22:00 04/02/25 23:45 6.25 MG Furosemide 60 mg BIDD IV 03/31/25 18:00 04/01/25 18:16 60 MG Linezolid 300 ml @ 150 mls/hr Q12HR IV 03/31/25 22:00 04/02/25 23:43 150 MLS/HR Amlodipine Besylate 10 mg DAILY PO 04/01/25 10:00 04/02/25 09:31 10 MG Apixaban 2.5 mg BID PO 04/01/25 10:00 04/02/25 23:43 2.5 MG Alprazolam 0.25 mg HSPRN PO 04/02/25 22:00 04/02/25 23:43 0.25 MG Examination General Appearance: Alert, lethargic, oriented in person, place and time. Cooperative, with Oxygen oxymizer at 6L with O2sat at 98% HEENT: Atraumatic, PERRLA, EOMI, Mucous membr. moist/pink Respiratory: middy reduced right lung expansion. mildly reduced bilateral lung sounds, more in the left, crackles in the bases, improving. Cardiovascular: Regular rate, Normal S1, Normal S2, No murmurs Abdominal: Normal bowel sounds, Soft, No tenderness, No hepatospenomegaly, No masses Extremities: No clubbing, No cyanosis, No edema, Normal pulses, No tenderness/swelling. ecchymosis in right upper arm improving. : clean urine coming out of the Jerome catheter. Skin: No rashes, No significant lesion Neuro: Generalized weakness has improved. laboratory and microbiology Laboratory Tests 04/03/25 05:34 Test 04/03/25 05:34 Range/Units Serum Glucose 190 H 74-106 mg/dL Microbiology Date/Time Source Procedure Growth Status 03/29/25 12:28 Nose MRSA Screen - Final Complete 03/29/25 12:27 Voided Urine Urine Culture - Final Enterococcus faecium - VRE Complete 03/29/25 01:30 Blood Blood Culture - Final NO GROWTH AFTER 5 DAYS OF INCUBATION. Complete Problem List/Assessment/Plan Problem List/Assessment/Plan #Sepsis likely due to Pneumonia, gram +/- #Acute on chronic hypoxic respiratory failure #Acute Pulmonary congestion #Moderate acute pulmonary effusion #Acute on chronic CHF exacerbation with systolic/diastolic failure Oxygen by Oxymizer 5L Telemetry BNP:996.25 ECHo D2: lvef 60%, severe MAC,moderate mitral stenosis, man gradient of 5 mmhg , left atrium enlarged mild to moderate tricuspid regurg. IV Antibiotics: Vancomycin and Cefepime. MedNeb:albuterol and ipatropium Furosemide 60mg IV BID Blood cultures: Negative at this time Urine culture: positive for enteroccocus and yeast Sputum culture: pending Pulmonary consult: Thoracocentesis cancelled due to small loculated effusion. #Complicated acute UTI, possible cystitis #acute Hematuria Urine culture: Enteroccocus fasecium-VRE Jerome catheter Urology consult Linezolid sensitive. Linezolid IV #Possible acute DVT #Possible acute Pulmonary embolus. Ruled out. US doppler bilateral lower extremities D-dimer elevated: 4.83 VQ scan: negative for PE #Chronic CAD Resumed Eliquis to 2.5mg #CKD stage 3b on CHRISTIANE Avoid nephrotoxic drugs Monitor Crea/ BUN #Acute Severe Anemia Improving Hb:9.8mg/dl FOBT: pending result. Iron test B12 Type and screen #Acute Generalized weakness likely due to Hypoglycemia Accucheck Dextrose 50ml if blood sugar<60 Resolving PT evaluation requested #Chronic DM type 2 with hyperglycemia Insulin sliding scale HbA1c 9.5% #Obesity 39.5. Counseling about healthy life style DVT prophylaxis: patient on Eliquis was placed on hold due to hematuria. Diet: Cardiac diet Goals of care discussed with the patient for more than 35 minutes: Code Status: Full code PCP: Dr. Kirkpatrick Case discussed with Dr. Garcia Plan discussed with: Patient, Spouse Dietary Evaluation Review Comments: 1. Offer CCHO-60 Cardiac diet with 50g protein restriction. 2. Initiate iron and MVI supplementation. 3. Provide education and "How to survive: A guide for your journey with Diabetes" 4. Advise pt to follow her Diet and Monitor blood glucose level closely. Expected Outcomes/Goals: Controlled DM, prevent uremic syndrome, healed wounds and Gradual wt loss Date of Service: Apr 03, 2025 Billing Provider: VISHAL GARCIA MD Common Visit Codes: [id number] INP/OBS CARE(HIGH) TEVIN GALEANA RESIDENT Apr 03, 2025 09:49 VISHAL GACRIA MD Apr 03, 2025 22:13
--- NOTE | 2025-04-03 22:23 | DVHPN2 ---
[facility] DOS: 04/03/2025 Patient seen and examined at bedside. Currently on supplemental oxygen Overnight events reviewed. Changes from previous H/P or p: No Changes Eyes: No Pain, No Vision change, No Conjunctivae inflammation, No Eyelid inflammation, No Other, No Redness ENT: No Ear pain, No Ear discharge, No Nose pain, No Nose discharge, No Nose congestion, No Mouth pain, No Mouth swelling, No Throat pain, No Throat swelling, No Other Cardiovascular: No Chest Pain, No Palpitations, No Orthopnea, No Paroxysmal Noc. Dyspnea, No Edema, No Lt Headedness, No Other Respiratory: Shortness of breath, Other Gastrointestinal: No Nausea, No Vomiting, No Abdominal Pain, No Diarrhea, No Constipation, No Melena, No Hematochezia, No Other Genitourinary: No Dysuria, No Frequency, No Incontinence, No Hematuria, No Retention, No Other Musculoskeletal: No other, No neck pain, No shoulder pain, No arm pain, No back pain, No hand pain, No leg pain, No foot pain Skin: No Rash, No Lesions, No Jaundice, No Bruising, No Other Objective Vitals Vital Signs Date Time Temp Pulse Resp B/P (MAP) Pulse Ox O2 Delivery O2 Flow Rate FiO2 04/03/25 21:00 97.8 80 18 173/81 (111) 97 97.8 04/03/25 20:00 Oxymizer 3 N/A Intake/Output Intake and Output 04/03/25 07:00 Intake Total 1010 ml Output Total 900 ml Balance 110 ml Intake Oral 710 ml IV Total 300 ml Output Urine Total 900 ml Exam Gen.: Patient lying in bed in no apparent distress. On supplemental oxygen Head: Normocephalic, atraumatic. Eyes: EOMI/PERRLA. Ears: Normal hearing. Normal anatomy. Neck/trachea: Trachea midline, supple. Nose: Normal external anatomy. Mouth: Moist mucous membranes. Chest: Decreased air entry bilaterally. No wheezing or rhonchi. Cardiovascular: Positive S1, positive S2. Regular rate and rhythm. Abdomen: Positive bowel sounds in all 4 quadrants. Soft, non-tender, non- distended. : Deferred. Rectal: Deferred. Skin: Warm, dry. Intact. Extremities: 2+ radial pulses bilaterally. No lower extremity edema. Neuro: Awake, alert, oriented x3. No gross motor or sensory deficits. Cranial nerves II through XII intact. Gait not assessed. Medications Current Medications Medications Dose Ordered Sig/Cayla Route Start Time Stop Time Status Last Admin Dose Admin Hydralazine HCl 10 mg Q6HP PRN IV 03/29/25 02:15 04/02/25 05:13 10 MG Diagnostic Test (Pha) 1 strip ACHS 03/29/25 07:00 04/03/25 16:56 1 STRIP Insulin Human Regular HS SC 03/29/25 22:00 04/03/25 20:45 4 UNITS Insulin Human Regular AC SC 03/29/25 07:00 04/03/25 17:11 3 UNITS Dextrose 50 ml UD PRN IV 03/29/25 02:15 Sodium Chloride 10 ml Q8HR IV 03/29/25 06:00 04/03/25 14:00 10 ML Acetaminophen/ Hydrocodone Bitart 1 tab Q4HP PRN PO 03/29/25 02:15 04/02/25 20:31 1 TAB Ondansetron HCl 4 mg Q4HP PRN IV 03/29/25 02:15 04/03/25 17:44 4 MG Docusate Sodium 100 mg BIDPRN PRN PO 03/29/25 02:15 04/02/25 20:30 100 MG Acetaminophen 650 mg Q6HP PRN PO 03/29/25 02:15 Nitroglycerin 0.4 mg Q5MINP PRN SL 03/29/25 04:30 Morphine Sulfate 2 mg Q30M PRN IV 03/29/25 04:30 Albuterol 2.5 mg Q4HPRN PRN NEB 03/29/25 20:45 03/30/25 04:59 2.5 MG Ipratropium [place] 0.5 mg Q4HPRN PRN NEB 03/29/25 20:45 03/30/25 04:58 0.5 MG Cefepime HCl 50 ml @ 12.5 mls/hr Q12H IV 03/30/25 18:00 04/02/25 18:05 12.5 MLS/HR Lisinopril 20 mg DAILY PO 03/31/25 10:00 04/03/25 09:57 20 MG Carvedilol 6.25 mg Q12HR PO 03/30/25 22:00 04/03/25 20:42 6.25 MG Furosemide 60 mg BIDD IV 03/31/25 18:00 04/03/25 18:00 60 MG Linezolid 300 ml @ 150 mls/hr Q12HR IV 03/31/25 22:00 04/03/25 09:56 150 MLS/HR Amlodipine Besylate 10 mg DAILY PO 04/01/25 10:00 04/03/25 09:58 10 MG Apixaban 2.5 mg BID PO 04/01/25 10:00 04/03/25 20:43 2.5 MG Alprazolam 0.25 mg HSPRN PO 04/02/25 22:00 04/03/25 20:43 0.25 MG Polyethylene Glycol 17 gm DAILYPRN PRN PO 04/03/25 10:00 Laboratory Results Laboratory Tests 04/03/25 05:34 Chemistry Test 04/03/25 05:34 Calcium Level 8.0 mg/dL (8.7-10.4) L Urinalysis Test 03/29/25 04:30 Urine Color Dark yellow (Yellow) Urine Clarity Ex.turbid (Clear) Urine pH 5.5 (5.0-9.0) Urine Specific [place] 1.010 (1.001-1.035) Urine Protein 1+ (Negative) H Urine Ketones Negative (Negative) Urine Blood 2+ /uL (Negative) H Urine Nitrite Negative (Negative) Urine Bilirubin Negative (Negative) Urine Urobilinogen Normal mg/dL (Negative) Urine Leukocyte Esterase 3+ /uL (Negative) Urine RBC 96 /hpf (0 - 4) Urine WBC Clumps Present /hpf (None Seen) Urine Microscopic WBC 2737 /HPF (0-5) H Urine Squamous Epithelial Cells None seen /hpf (<5) Urine Bacteria None seen /hpf (None Seen) Urine Yeast (Budding) Loaded /hpf (None Seen) Urine Glucose Normal mg/dL (Normal) Microbiology Microbiology Date/Time Source Procedure Growth Status 03/29/25 12:28 Nose MRSA Screen - Final Complete 03/29/25 12:27 Voided Urine Urine Culture - Final Enterococcus faecium - VRE Complete 03/29/25 01:30 Blood Blood Culture - Final NO GROWTH AFTER 5 DAYS OF INCUBATION. Complete Assessment/Plan Assessment/Plan Impression: Acute hypoxic respiratory failure Dependence on supplemental oxygen Loculated pleural effusion Atelectasis Obesity, BMI 36.3 Events: Currently on supplemental oxygen On 5 LPM Oxymizer Taper O2 as tolerated. BIPAP PRN due to hypercarbia. Limited chest U/S of right lung revealed right loculated pleural effusion. Chest x-ray on 04/01 shows improvement; right lung opacities persist, pulmonary vascular congestion. Patient is improving slowly. Continue diuresis with Lasix Maintain euvolemia Monitor renal function. Monitor electrolytes. Supplement as necessary. Continue bronchodilators Continue antibiotics Incentive spirometry On Eliquis PO BID Monitor renal function. Monitor electrolytes. Supplement as necessary. Potassium supplementation Physical therapy V/Q scan shows low probability for PE. Labs and imaging reviewed. Rest of plan as noted below. Plan: Continue supplemental oxygen Titrate to keep O2 sats above 92%. BiPAP PRN Chest CT revealed moderate right pleural effusion which appears to be loculated. Left lower lobe atelectasis/consolidation. Right middle lobe and right lower lobe compressive atelectasis. Findings c/w CHF. Continue bronchodilators. Continue antibiotics Incentive spirometry Diurese with Lasix Monitor renal function. Monitor electrolytes. Supplement as necessary. Monitor ins and outs. Recommend diet and lifestyle modifications for weight reduction Obesity complicates all care DVT prophylaxis. Prognosis: Poor given patient's multiple co-morbidities. Rest of plan per hospitalist and other consultants. Thank you, Dr. Howard, for allowing me to participate in this patient's care. Further recommendations will depend on the patient's clinical course. Please do not hesitate to contact me if you have any questions or concerns. This medical document was created using an electronic medical record system with [employer] dictation system. Although these documentations are being carefully reviewed, there may still be some phonetic and typographical changes. The errors are purely typographical, due to imperfection on the software program, and do not reflect any compromise in the patient's medical care. Plan discussed with: Other (RN) Visit Coding Pulmonary Billing Provider: JAN GONCALVES MD Date of Service if different f: Apr 03, 2025 Common Visit Codes: [id number] INP/OBS CARE(HIGH) JAN GONCALVES MD Apr 03, 2025 22:23
[2025-04-04] VITALS (9 sets, daily range): BP systolic 123–169; BP diastolic 63–76; PULSE 76–83; RESP 16–18; TEMP 36.9; O2SAT 95–98
[2025-04-04 05:57] LABS: Hematocrit 27.0 % (36.0-46.0); Hemoglobin 9.0 g/dL (12.2-16.2); Mean Corpuscular Hemoglobin 29.0 pg (28.0-32.0); Mean Corpuscular Volume 87.0 fL (80.0-100.0); Nucleated Red Blood Cells % 0.1 %
[2025-04-04 06:05] LABS: Sodium 141 mmol/L (136-145)
[2025-04-04 06:06] LABS: Anion Gap 8 (5-15)
[2025-04-04 06:09] LABS: Calcium 8.0 mg/dL (8.7-10.4); Carbon Dioxide 39 mmol/L (20-31); Chloride 94 mmol/L (98-107); Potassium 2.7 mmol/L (3.5-5.1)
[2025-04-04 06:11] LABS: BUN/Creatinine Ratio 15.5 (10.0-20.0); Blood Urea Nitrogen 20 mg/dL (9-23); Glucose 161 mg/dL (74-106)
[2025-04-04] MEDS ORDERED: POTASSIUM EFFERVESENT TAB 25 MEQ GT ONE (09:30)
--- NOTE | 2025-04-04 09:42 | DVHPN2 ---
Progress Note - Dictate Date Seen: Apr 04, 2025 Has the PT tested + for MRSA If YES, has PT been informed?: No Medical Necessity Reason Pt with a Central, PICC or Fol: No vital signs Vital Sign Date Time Temp Pulse Resp B/P (MAP) Pulse Ox O2 Delivery O2 Flow Rate FiO2 04/04/25 09:38 154/72 04/04/25 09:37 78 04/04/25 08:51 98.5 16 95 98.5 04/04/25 01:22 Facial BiPAP Mask 40 04/03/25 20:00 3 Total Intake and Output 04/03/25 04/03/25 04/04/25 15:00 23:00 07:00 Intake Total 476 ml 1250 ml 2300 ml Output Total 500 ml Balance 476 ml 1250 ml 1800 ml medications Current Medications Medications Dose Ordered Sig/Cayla Route Start Time Stop Time Status Last Admin Dose Admin Hydralazine HCl 10 mg Q6HP PRN IV 03/29/25 02:15 04/03/25 23:07 10 MG Diagnostic Test (Pha) 1 strip ACHS 03/29/25 07:00 04/04/25 07:00 1 STRIP Insulin Human Regular HS SC 03/29/25 22:00 04/03/25 20:45 4 UNITS Insulin Human Regular AC SC 03/29/25 07:00 04/04/25 05:46 3 UNITS Dextrose 50 ml UD PRN IV 03/29/25 02:15 Sodium Chloride 10 ml Q8HR IV 03/29/25 06:00 04/04/25 06:25 10 ML Acetaminophen/ Hydrocodone Bitart 1 tab Q4HP PRN PO 03/29/25 02:15 04/03/25 22:25 1 TAB Ondansetron HCl 4 mg Q4HP PRN IV 03/29/25 02:15 04/04/25 05:48 4 MG Docusate Sodium 100 mg BIDPRN PRN PO 03/29/25 02:15 04/02/25 20:30 100 MG Acetaminophen 650 mg Q6HP PRN PO 03/29/25 02:15 Nitroglycerin 0.4 mg Q5MINP PRN SL 03/29/25 04:30 Morphine Sulfate 2 mg Q30M PRN IV 03/29/25 04:30 Albuterol 2.5 mg Q4HPRN PRN NEB 03/29/25 20:45 03/30/25 04:59 2.5 MG Ipratropium [place] 0.5 mg Q4HPRN PRN NEB 03/29/25 20:45 03/30/25 04:58 0.5 MG Cefepime HCl 50 ml @ 12.5 mls/hr Q12H IV 03/30/25 18:00 04/04/25 06:07 12.5 MLS/HR Lisinopril 20 mg DAILY PO 03/31/25 10:00 04/04/25 09:38 20 MG Carvedilol 6.25 mg Q12HR PO 03/30/25 22:00 04/04/25 09:37 6.25 MG Furosemide 60 mg BIDD IV 03/31/25 18:00 04/04/25 05:52 60 MG Linezolid 300 ml @ 150 mls/hr Q12HR IV 03/31/25 22:00 04/04/25 09:36 150 MLS/HR Amlodipine Besylate 10 mg DAILY PO 04/01/25 10:00 04/04/25 09:38 10 MG Apixaban 2.5 mg BID PO 04/01/25 10:00 04/04/25 09:36 2.5 MG Alprazolam 0.25 mg HSPRN PO 04/02/25 22:00 04/03/25 20:43 0.25 MG Polyethylene Glycol 17 gm DAILYPRN PRN PO 04/03/25 10:00 laboratory and microbiology Laboratory Tests 04/04/25 04:53 Test 04/04/25 04:53 Range/Units Serum Glucose 161 H 74-106 mg/dL Assessment/Plan Seen and examined on tele. [facility]. The patient is a 79-year-old female known to our clinic who presented to the emergency department on 03/29/2025 for shortness of breath. Notably, she was recently discharged from [facility] three days prior following treatment for pneumonia. Her reports that she was noted to have an oxygen saturation of 81% at home associated with weakness and lethargy. He also stated that he was unaware supplemental oxygen could be used in conjunction with CPAP therapy, which is likely the cause of her hypoxia. Laboratory results revealed hemoglobin 7.5, D-dimer 4.83 (with subsequent bilateral lower extremity Doppler ultrasound negative for DVT), BNP 996.8, potassium 4.2, creatinine 1.94, high-sensitivity troponin 12, with repeat 12, and hemoglobin A1c 9.5%. Iron studies showed serum iron 32 and TIBC 212. Urinalysis was positive for leukocytes. Chest X-ray demonstrated cardiomegaly with mild pulmonary edema and a small right pleural effusion. NAD, no JVD, pink and wet mucosa, no carotid bruit, not using accessory muscles of breathing. Scattered rhonchi in lungs+, Cardiac: irregular, no thrill, no gallop, Abdomen; soft, nontender, no gross mass/hepatomegally, no peripheral edema, no gross lateralized neurologic deficit Past medical history includes coronary artery disease status post prior PCI to the mid LAD; breast cancer status post left mastectomy; diabetes mellitus; hypertension; chronic diastolic heart failure; COPD on home oxygen therapy; peripheral neuropathy; anxiety; depression; GERD; paroxysmal atrial fibrillation on chronic anticoagulation; status post previous hand surgery, hysterectomy, and left mastectomy. Lexiscan stress test (12/11/2023) revealed no evidence of gross ischemia with an ejection fraction of 70%. Echocardiogram ([facility] 01/09/2024): Technically difficult study. Left ventricle demonstrates mildly increased wall thickness with stage I diastolic dysfunction. Right ventricular size and function are normal. Left ventricular ejection fraction (LVEF) is 60% by visual estimation. Right atrium is mildly dilated; mild left atrial dilation is present. Aortic and mitral valves open adequately. Trace mitral regurgitation, trace pulmonic regurgitation, and mild tricuspid regurgitation noted. Estimated RVSP is 24 mmHg. Echocardiogram ([facility] 03/05/2025): Technically difficult study. LVEF is 6570% by visual estimation. Mild left ventricular hypertrophy and stage I diastolic dysfunction are present. Right ventricle is mildly dilated with normal function. Left atrium is severely dilated; moderate right atrial dilation noted. Tricuspid valve demonstrates mild regurgitation with RVSP 55 mmHg. Trace pulmonic regurgitation observed. Mitral valve structure is normal with mildly restricted motion and mild leaflet thickening. There is moderate posterior mitral annular calcification and mild mitral regurgitation without evidence of mitral stenosis or aortic stenosis. Echocardiogram ([facility] 03/29/2025): LVEF 60% by visual estimation. Severe mitral annular calcification is noted with moderate mitral stenosis and a mean transmitral gradient of 5 mmHg. Left atrium is enlarged. [id number] tricuspid regurgitation is present. V/Q scan: Low probability for PE. Assessment: Coronary artery disease, status post prior PCI to mid LAD; no ischemia on Lexiscan (12/11/2023) Elevated BNP consistent with mild volume overload and diastolic dysfunction Anemia, likely secondary to iron deficiency (iron 32, TIBC 212) Moderate mitral stenosis secondary to severe mitral annular calcification Acute on chronic diastolic heart failure with preserved ejection fraction Chronic kidney disease with acute kidney injury (creatinine 1.94) Severe left atrial enlargement and moderate tricuspid regurgitation. Paroxysmal atrial fibrillation on chronic anticoagulation History of breast cancer status post mastectomy Diabetes mellitus with A1c 9.5% COPD on home oxygen therapy Small right pleural effusion Hypertension Abnormal D-Dimer Hypertensive urgency Cardiology Recommendations: Given the elevated creatinine, a VQ scan is recommended to rule out pulmonary embolism in the presence of an elevated D-dimer and to avoid further nephrotoxic contrast exposure (V/Q scan result was low probability for PE). Optimize guideline-directed medical therapy (GDMT) for heart failure with preserved ejection fraction. Diurese as tolerated to improve volume status, given elevated BNP and mild pulmonary edema. Monitor renal function and electrolytes closely during diuresis. Continue supplemental oxygen with CPAP at night; patient and spouse educated regarding concurrent use. Address anemia. 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 Optimize control of hypertension and diabetes mellitus. Reassess volume status, BNP, and renal function daily to guide further diuretic therapy.Recognizing presentation/recent NST finding, ACS at this point is not considered. As ACS is not considered, no indication warranted for ischemic workup at present time. BP was elevated and its control is advised. Proceed with close observation for overt signs of fluid overload Proceed with strict intakes, outputs, and daily weights Proceed with close rate and rhythm surveillance Proceed with close hemodynamic surveillance Proceed with optimized blood pressure control Transfuse to sustain HGB levels above 7.0 Sustain Magnesium level greater than 2.0 Sustain Potassium level greater than 4.0 Follow up renal function and electrolytes IV lasix: 60 mg IV BID Amlodipine: 10 mg daily On Eliquis Seen by Urology Management in Telemetry Will proceed to follow from a cardiac perspective Further recommendations per clinical progression Cardiac flores, stable and can be followed as outpatient All available labs, EKGs, and images were personally reviewed Plan of care discussed with and agreed upon by patient/family/Primary RN. Prognosis: Guarded Thank you for allowing me to participate in the care of this patient. Further recommendations will depend on clinical progression, hospitalist, and other consultants. Will continue to follow with Primary. If you have any questions, please do not hesitate to contact me. A total of 55 minutes was spent reviewing the patient record, examining the patient, making a diagnostic and therapeutic plan, discussing this plan with medical personnel, following up on diagnostic studies and following the patient for clinical stability excluding any and all procedures. At least 50% of this time was spent in direct, [id number] contact. Dietary Evaluation Review Comments: 1. Offer CCHO-60 Cardiac diet with 50g protein restriction. 2. Initiate iron and MVI supplementation. 3. Provide education and "How to survive: A guide for your journey with Diabetes" 4. Advise pt to follow her Diet and Monitor blood glucose level closely. Expected Outcomes/Goals: Controlled DM, prevent uremic syndrome, healed wounds and Gradual wt loss Plan discussed with: Other (nurse) JORGE ESPOSITO MD Apr 04, 2025 09:42
[2025-04-04] MEDS: POTASSIUM EFFERVESENT TAB 25 MEQ PO ONE (10:10)
--- NOTE | 2025-04-04 18:59 | DVHDSRES ---
Discharge Summary Date of Admission Resident Creating Document: TEVIN GALEANA RESIDENT Mar 29, 2025 at 04:26 Date of Discharge: Apr 04, 2025 Admitting Diagnosis #Sepsis likely due to Pneumonia, gram +/- #Acute on chronic hypoxic respiratory failure #Acute Pulmonary congestion #Moderate acute pulmonary effusion #Acute on chronic CHF exacerbation with systolic/diastolic failure Wounds: Two stage 1 ulcers localized in the perianal area. Labs/Diagnostic Data: Laboratory Results Test 04/04/25 08:06 04/04/25 04:53 04/02/25 05:44 04/01/25 18:21 POC Glucose 136 mg/dl (70-106) White Blood Count 7.0 10^3/uL (4.4-10.8) Red Blood Count 3.10 10^6/uL (4.0-5.20) Hemoglobin 9.0 g/dL (12.2-16.2) Hematocrit 27.0 % (36.0-46.0) Mean Corpuscular Volume 87.0 fL (80.0-100.0) Mean Corpuscular Hemoglobin 29.0 pg (28.0-32.0) Mean Corpuscular Hemoglobin Concent 33.3 g/dL (32.0-36.0) Red Cell Distribution Width 13.6 % (11.8-14.3) Platelet Count 166 10^3/uL (140-450) Mean Platelet Volume 7.7 fL (6.9-10.8) Neutrophils (%) (Auto) 67.9 % (37.0-80.0) Lymphocytes (%) (Auto) 17.6 % (10.0-50.0) Monocytes (%) (Auto) 10.9 % (0.0-12.0) Eosinophils (%) (Auto) 3.0 % (0.0-7.0) Basophils (%) (Auto) 0.6 % (0.0-2.0) Neutrophils # (Auto) 4.7 10 ^3/uL (1.6-8.6) Lymphocytes # (Auto) 1.2 10 ^3/uL (0.4-5.4) Monocytes # (Auto) 0.8 10 ^3/uL (0-1.3) Eosinophils # (Auto) 0.2 10 ^3/uL (0-0.8) Basophils # (Auto) 0 10 ^3/uL (0-0.2) Nucleated Red Blood Cells 0.1 % Sodium Level 141 mmol/L (136-145) Potassium Level 2.7 mmol/L (3.5-5.1) Chloride Level 94 mmol/L (98-107) Carbon Dioxide Level 39 mmol/L (20-31) Anion Gap 8 (5-15) Blood Urea Nitrogen 20 mg/dL (9-23) Creatinine 1.29 mg/dL (0.550-1.02) Glomerular Filtration Rate Calc 43 mL/min (>90) BUN/Creatinine Ratio 15.5 (10.0-20.0) Serum Glucose 161 mg/dL (74-106) Calcium Level 8.0 mg/dL (8.7-10.4) Magnesium Level 1.4 mg/dL (1.6-2.6) Blood Gas Specimen Type Arterial Blood Gas Sample Site Right brachial Blood Gas Patient Temperature 37.0 Arterial Blood Date Drawn [id number] Arterial Blood pH 7.489 (7.350-7.450) Arterial Blood Partial Pressure CO2 49.7 mmHg (32.0-45.0) Arterial Blood Partial Pressure O2 73.0 mmHg (83.0-108.0) Arterial Blood HCO3 36.9 mmol/L (21.0-28.0) Arterial Blood Oxygen Saturation 94.5 % (94.0-98.0) Arterial Blood Base Excess 12.1 mmol/L (-2.0-3.0) Arterial Blood Oxyhemoglobin 94.1 % (94.0-98.0) Arterial Blood Carboxyhemoglobin 0.3 % (0.5-1.5) Arterial Blood Methemoglobin 0.1 % (0.0-1.5) Antonio Test N/a Blood Gas Total Hemoglobin 10.00 g/dL (12.0-16.0) Blood Gas Set Respiration Rate 12.0 Blood Gas Modality Mask - bipap FiO2 % 40.0 Blood Gas EPAP 5 Blood Gas IPAP 12 Test 04/01/25 13:28 03/31/25 13:14 03/31/25 05:56 03/30/25 05:54 Blood Gas Liter Flow 6.00 Prothrombin Time 23.4 sec (9.3-11.8) Prothrombin Time INR 2.41 (0.9-1.15) Random Vancomycin Level 22.3 ug/mL (5-10) Total Bilirubin 0.3 mg/dL (0.2-1.0) Aspartate Amino Transferase (AST) 17 U/L (13-40) Alanine Aminotransferase (ALT) < 9 U/L (7-40) Alkaline Phosphatase 143 U/L (46-116) Total Protein 6.6 g/dL (5.7-8.2) Albumin 3.1 g/dL (3.2-4.8) Test 03/29/25 13:27 03/29/25 10:24 03/29/25 04:30 03/29/25 02:12 D-Dimer, Quantitative 4.83 mg/L FEU (0.0-0.49) Urine Color Dark yellow (Yellow) Urine Clarity Ex.turbid (Clear) Urine pH 5.5 (5.0-9.0) Urine Specific [place] 1.010 (1.001-1.035) Urine Protein 1+ (Negative) Urine Ketones Negative (Negative) Urine Blood 2+ /uL (Negative) Urine Nitrite Negative (Negative) Urine Bilirubin Negative (Negative) Urine Urobilinogen Normal mg/dL (Negative) Urine Leukocyte Esterase 3+ /uL (Negative) Urine RBC 96 /hpf (0 - 4) Urine WBC Clumps Present /hpf (None Seen) Urine Microscopic WBC 2737 /HPF (0-5) Urine Squamous Epithelial Cells None seen /hpf (<5) Urine Bacteria None seen /hpf (None Seen) Urine Yeast (Budding) Loaded /hpf (None Seen) Urine Glucose Normal mg/dL (Normal) Troponin I High Sensitivity 12 ng/L (</=34) Test 03/29/25 01:22 03/29/25 01:12 Lactic Acid Level 0.4 mmol/L (0.4-2.0) Iron Level 32 ug/dL (50-170) Total Iron Binding Capacity 212 ug/dL (250-425) Percent Iron Saturation 15.1 % (15-50) Vitamin B12 Level 1185 pg/mL (211-911) Hemoglobin A1c 9.5 % A1C (<5.7) B-Type Natriuretic Peptide 996.88 pg/mL (0-100) Other Laboratory Tests 04/04/25 04:53 Brief Hx & Hospital Course: Carlene Velez is a 79-year-old female with past medical history of breast cancer (2022), DM2, hypertension, CHF, depression, coronary artery disease, and chronic kidney failure. The patient came to the ED with chief complaint of 1 day of shortness of breaths. The patient's reports that patient has recently discharged from [facility] 3 days ago for pneumonia. The EMS report the patient was on respiratory distress, O2 saturation 81%, weakness, lethargic, blood sugar of 39 and was given D50 EN route to the ED for further evaluation. Patient was seen and evaluated in the ED, laboratory data shows WBC 8.6, hemoglobin 8.9, hematocrit 27.7, platelets 164, sodium 134, potassium 5.0, BUN 48, creatinine 1.94, glucose 197, calcium 8.2, alkaline phos 141, BNP 996.88, troponin 12, albumin 3.1, blood pressure 117/55, heart rate 68, temperature 98.1 F, O2 saturation 97% on non-rebreather. Chest x-ray revealing cardiomegaly with mild pulmonary edema and small right pleural effusion. Patient was started on IV Lasix, please see medication orders section in the computer. On admission assessment, the patient denies chest pain, no dizziness, headache, diaphoresis, currently on non-rebreather, no diarrhea, nausea, vomiting, fever, no chills. Patient was admitted for further evaluation and medical management. Past Medical History Hypertension, Diabetes, DM, HTN, Chronic kidney failure, CHF, Depression, Coronary artery disease, Breast cancer 2022 Past Surgical History Coronary stents, Left mastectomy 2022, PTCA Family History Reviewed, noncontributory to the management of this case. Past Social History The patient lives at home, denies smoking, alcohol or illicit drugs abuse. Admission Course: On 03/29/25, the patient was evaluated at bedside, VS, labs and chart was reviewed. The patient is alert, no oriented, short responses, confused. The patient with O2 via oxymizer at 5L with O2sat at 94% . Labs report severe anemia 7.5mg/dl, Lactic acid 0.4, UA is positive for UTI, D-dimer is elevated. DVT US doppler was ordered. Creatinine is 1.46. Jerome was draining pink-eliana urine, new UA was ordered. Due to Hb is trending down a rectal exam was performed with nnp ( LILI Petersen), and FOBT sample was sent to the lab. Cultures were ordered: Urine, blood and sputum. The patient was started on Vancomycin and cefepime IV. The patient continues with furosemide 40mg IV. ECHo report is pending at this time. We will continue following this patient progress closely. On 03/30/25, the patient was re-evaluated and examined at bedside. VS, labs and chart was reviewed at bedside. The patient is still on oxymizer at 8L. BP is in the upper side. Due to improved on creatinine lisinopril was added, carvedilol dose was increased to 6.25mg. WBC are 9.1. Patient is on Vancomycin and Cefepime. VQ scan was negative for PE. Chest CT scan showed: Moderate right pleural effusion which appears to be loculated. Left lower lobe atelectasis/consolidation. Right middle lobe and right lower lobe compressive atelectasis. Diffuse interlobular septal thickening. This is likely related to CHF. Cardiomegaly. Pulmonary consult was placed. Hematuria was noted from the Jerome catheter. Eliquis was stopped by cardiology (Dr. Zimmerman). The patient reports today dyspnea and back pain. Pain is been management with [place] 5/325mg. I spoke with the patient's and addressed his questions and concerns. We will continue following up this patient progress closely. On 03/31/25, the patient was re-evaluated and examined at bedside. VS, labs and chart was reviewed. The patient is still on oxymizer at 8L. Pulmonology is on board, they will perform a thoracocentesis, consent was obtained. WBC are 9.8. Hb is improving. Hematuria has stopped. The patient continues with Vancomycin and Cefepime. The patient complains of back pain, her pain is been management with [place] 5/325mg. I spoke with the patient's and addressed his questions and concerns. We will continue following up this patient progress closely. On 04/01/25, the patient was re-evaluated and examined at bedside. VS, labs and chart was reviewed. The patient is still on oxymizer at 8L. Pulmonology is on board, did not performed the thoracocentesis due to the lug effusion is small and is loculated. WBC is trending down to 7.9 Hb is improving to 9.6. Hematuria stopped after put the eliquis on hold. Urology was consulted. Urine cultures showed: Enterococcus faecium, Vancomycin resistant. The patient continues with Cefepime, vancomycin was discontinued and replaced with Linezolid due to sensitivity test. The patient reports her back pain has improved with analgesia. I spoke with the patient's and addressed his questions and concerns. We will continue following up this patient progress closely. On 04/02/25, the patient was re-evaluated and examined at bedside. VS, labs and chart was reviewed. Creatinine levels are improving. Bi-pap was placed yesterday due to CO2 retention, but later was discontinued due to improvement, today with oxymizer at 6L. Pulmonology is on board, new xray showed improvement of pneumonia.. WBC is trending down to 7.7 Hb is stab. Hematuria stopped after put the eliquis on hold. Urology was consulted. Urine cultures showed: Enterococcus faecium, Vancomycin resistant. The patient continues with Cefepime and linezolid. The patient reports her back pain has improved with analgesia. PT consult was placed for evaluation. I spoke with the patient's and addressed his questions and concerns. We will continue following up this patient progress closely. On 04/03/25, the patient was re-evaluated and examined at bedside. VS, labs and chart was reviewed. Creatinine levels are improving. Today, with oxymizer is at 5L. Pulmonology is on board, patient is receiving medneb scheduled. WBC is 9.3 Hb is improving 9.8mg/dl. . The patient continues with Cefepime and linezolid. The patient reports her back pain has improved with analgesia. Also, wound care is onboard for wound in the perianal area. PT consult was placed for evaluation for a possible SNF upon discharge. I spoke with the patient's and addressed his questions and concerns, the patient and her agree with the current plan. We will continue following up this patient progress closely. On 04/04/25, the patient was re-evaluated and examined at bedside. VS, labs and chart was reviewed. Creatinine levels are improving. Today, the patient is a 3L of oxygen that is her baseline. Pulmonology is on board, patient is receiving medneb scheduled. WBC are within normal limits. Hb is improving 9.0 . The patient continues with Cefepime and linezolid. She received physical therapy yesterday, nursing home facility was recommended. Today the patient reports feeling better, due to clinical improvement the patient will be discharged to SNF for rehab and physical therapy. I have spoken with the patient's and addressed his questions and concerns, the patient and her agree with the current plan to discharge the patient to SNF. The patient will be following up with primary care doctor within 1 week. The patient follow-up as an outpatient with a nurse gynecology and Cardiology with in 1 week. ROS: Constitutional: Yes: general weakness improving; No: Fever, Chills, Sweats, Malaise Eyes: No: Pain, Vision change, Conjunctivae inflammation, Eyelid inflammation, Other, Redness ENT: No: Ear pain, Ear discharge, Nose pain, Nose discharge, Nose congestion, Mouth pain, Mouth swelling, Throat pain, Throat swelling, Other Respiratory: Shortness of breath improved; No: Cough, Dry, SOB with excertion, Wheezing, Hemoptysis, Pleuritic Pain, Sputum, Wheezing Cardiovascular: No: Chest Pain, Palpitations, Orthopnea, Paroxysmal Noc. Dyspnea, Edema, Lt Headedness, Other Gastrointestinal: No: Nausea, Vomiting, Abdominal Pain, Diarrhea, Constipation, Melena, Hematochezia, Other Genitourinary: No Dysuria, No Frequency, No Incontinence, No Hematuria, No Retention, No Other Musculoskeletal: Back pain improved. No: other, neck pain, shoulder pain, arm pain, hand pain, leg pain, foot pain Skin: No: Rash, Lesions, Jaundice, Bruising, Other Neurological: No: Weakness, Numbness, Incoordination, Change in speech, Confusion, Seizures, Other Coded Allergies: NO KNOWN ALLERGIES (Unverified , 01/28/17) General Appearance: Alert, lethargic, oriented in person, place and time. Cooperative, with Oxygen oxymizer at 3L with O2sat at 99% (baseline) HEENT: Atraumatic, PERRLA, EOMI, Mucous membr. moist/pink Respiratory: Vesicular lung sounds, mildly reduced lung expansion. Cardiovascular: Regular rate, Normal S1, Normal S2, No murmurs Abdominal: Normal bowel sounds, Soft, No tenderness, No hepatospenomegaly, No masses Extremities: No clubbing, No cyanosis, No edema, Normal pulses, No tenderness/swelling. ecchymosis in right upper arm improving. : clean urine coming out of the Jerome catheter. Skin: No rashes, No significant lesion Neuro: Generalized weakness has improved, the patient can sit down and stand up with assistance. Consults/Reason for consult Cardiology: CHF exacerbation Pumonology: COPD exacerbation, Severe pneumonia Operations or Procedures CHEST RADIOGRAPH Indication: SOB Technique: Single frontal view of the chest was obtained COMPARISON: XY CHEST PORTABLE on DOS: 10/19/23 FINDINGS: Lines and Tubes: None Lungs: Diffuse increased prominence of the pulmonary vasculature and small right pleural effusion. No pneumothorax. Cardiomediastinal contours: Cardiomegaly. Bones: Unremarkable IMPRESSION: 1. Cardiomegaly with mild pulmonary edema and small right pleural effusion. EDURE(s): BLDVT - BiLat Lower DVT REASON: R/O DVT ORDER NUMBER(s): [id number], ACCESSION NUMBER(s): [id number] Bilateral lower extremity venous duplex Clinical History: R/O DVT Comparison: None Technique: Duplex Doppler evaluation of the deep venous systems of both lower extremities from the common femoral veins to the popliteal veins including color Doppler and spectral/pulsed waveform analysis was performed. Findings: RIGHT SIDE: The common femoral vein demonstrates appropriate compressibility and waveform variability. There is compressibility/patency of the great saphenous vein at the proximal thigh. The femoral vein demonstrates appropriate compressibility and waveform variability. The deep femoral vein demonstrates appropriate compressibility and waveform variability. The popliteal vein demonstrates appropriate compressibility and waveform variability. There is normal compressibility at the tibioperoneal trunk. LEFT SIDE: The common femoral vein demonstrates appropriate compressibility and waveform variability. There is compressibility/patency of the great saphenous vein at the proximal thigh. The femoral vein demonstrates appropriate compressibility and waveform variability. The deep femoral vein demonstrates appropriate compressibility and waveform variability. The popliteal vein demonstrates appropriate compressibility and waveform variability. There is normal compressibility at the tibioperoneal trunk. Impression: 1. No right or left femoropopliteal venous thrombosis. PROCEDURE(s): CX2CT - CHEST WITHOUT CONTRAST REASON: R/O metastasis lung ORDER NUMBER(s): [id number], ACCESSION NUMBER(s): [id number] Procedure: CT CHEST WITHOUT CONTRAST Reason for study/Clinical History: R/O metastasis lung Comparison Study: None TECHNIQUE: Multidetector CT of the chest was performed from the lung apices to the upper abdomen without the use of intravenous contract. Axial, coronal and sagittal multiplanar reformats were performed. Radiation Dose Information: CT Dose: CTDI volume is 17.83 mGy. Dose-length product is 592.4 mGy*cm The dose indicators for CT are the volume Computed Tomography (CT) Dose Index (CTDIvol) and the Dose Length Product (DLP), and are measured in units of mGy and mGy-cm, respectively. These indicators are not patient dose, but values generated from the CT scanner acquisition factors. The report includes radiation exposure data for exposures received during this examination. FINDINGS: Lower neck: Unremarkable. Lungs: Left lower lobe atelectasis/consolidation. Right middle lobe and right lower lobe compressive atelectasis. Diffuse interlobular septal thickening. Heart/Vascular Structures: Cardiomegaly. Coronary artery calcifications. Vascular calcifications of the aorta. Lymph Nodes: No adenopathy Pleura: Moderate right pleural effusion which appears to be loculated. Musculoskeletal: Multilevel degenerative changes of the spine. Soft tissues: Normal. Upper abdomen: Limited portions of the upper abdomen are unremarkable. IMPRESSION: Moderate right pleural effusion which appears to be loculated. Left lower lobe atelectasis/consolidation. Right middle lobe and right lower lobe compressive atelectasis. Diffuse interlobular septal thickening. This is likely related to CHF. Cardiomegaly. Radiation optimization: All CT scans at this facility use at least one of these dose optimization techniques: automated exposure control mA and/or kV adjustment per patient size (includes targeted exams where dose is matched to clinical indication) or iterative reconstruction. EDURE(s): VQ - NM VQ SCAN REASON: PULMONARY EMBOLISM ORDER NUMBER(s): [id number], ACCESSION NUMBER(s): [id number] NUCLEAR MEDICINE VENTILATION/PERFUSION LUNG SCAN. INDICATION: PULMONARY EMBOLISM TECHNIQUE: Following intravenous demonstration of 6 millicuries of technetium 99m MAA, and inhalation of 40 mCi of Tc 99m DTPA scintigrams were obtained in multiple projections of the lungs. FINDINGS: There is normal uptake of radionuclide on both the ventilation and perfusion portions of the examination. No mismatched perfusion defects are demonstrated. Uptake is normally homogeneous. IMPRESSION: Low probability for PE. EDURE(s): CXRP - CHEST PORTABLE REASON: plueral effusion ORDER NUMBER(s): [id number], ACCESSION NUMBER(s): [id number] INDICATION: plueral effusion TECHNIQUE: Single frontal view of the chest was obtained COMPARISON: XY CHEST PORTABLE on DOS: 03/29/25, XY CHEST PORTABLE on DOS: 10/19/23, XY CHEST PORTABLE on DOS: 03/29/25 FINDINGS: Lines and Tubes: None Lungs: Diffuse increased prominence of the pulmonary vasculature and small right pleural effusion. No pneumothorax. Cardiomediastinal contours: Cardiomegaly. Bones: Unremarkable IMPRESSION: 1. Cardiomegaly with mild pulmonary edema and small right pleural effusion. Condition at Discharge: Stable Final Diagnosis/Problems List #Sepsis likely due to Pneumonia, gram +/- #Acute on chronic hypoxic respiratory failure #Acute Pulmonary congestion #Moderate acute pulmonary effusion #Acute on chronic CHF exacerbation with systolic/diastolic failure #CKD stage 3b on CHRISTIANE #Complicated acute UTI, possible cystitis #Acute Hematuria #Possible acute DVT, ruled out. #Possible acute Pulmonary embolus. Ruled out. #Chronic CAD #CKD stage 3b on CHRISTIANE #Acute Severe Anemia #Acute Generalized weakness likely due to Hypoglycemia #Chronic DM type 2 with hyperglycemia #Obesity Discharge Disposition: Longterm Facility SNF Discharge Will this Physician continue t: Yes ([facility]) Discharge Instruct/Medications Diet: Consistent carbohydrate, Cardiac 2g Na,low cholest, Renal Activity: No Restrictions, As Tolerated Follow Up/Referral: F/U with PCP in 1 week Medications: Linezolid 600mg po bid for 7 days Scheduled Alprazolam (Alprazolam), 1 TAB PO DAILY, (Reported) Anastrozole (Anastrozole), 1 TAB PO DAILY, (Reported) Apixaban Base (Eliquis), 1 TAB PO BID, (Reported) Carvedilol (Carvedilol), 1 TAB PO BID, (Reported) Clonidine Hydrochloride (Clonidine Hcl), 1 TAB PO TID, (Reported) Empagliflozin (Jardiance), 1 TAB PO DAILY, (Reported) Escitalopram Oxalate (Escitalopram Oxalate), 1 TAB PO BID, (Reported) Finerenone (Kerendia), 1 TAB PO DAILY, (Reported) Uzodwwtnsxf-Hhmbvqudxftn-Yvspu (Trelegy Ellipta 100-62.5-25 Mcg/INH), 1 PUFF INH DAILY, (Reported) Furosemide (Furosemide), 1 TAB PO BID, (Reported) Hydralazine Hcl (Hydralazine Hcl), 1 TAB PO TID, (Reported) Hydroxyzine Hcl (Hydroxyzine Hcl), 1 TAB PO DAILY, (Reported) Levorphanol Tartrate (Levorphanol Tartrate), 1 TAB PO BID, (Reported) Lidocaine (Ztlido), 1-2 PATCH EXT DAILY, (Reported) Losartan Potassium (Losartan Potassium), 1 TAB PO DAILY, (Reported) Magnesium Oxide (Magnesium Oxide), 1 TAB PO DAILY, (Reported) Nifedipine (Nifedipine Er), 1 TAB PO DAILY, (Reported) Pantoprazole Sodium Sesquihydr (Pantoprazole Sodium Dr), 1 TAB PO DAILY, (Reported) Potassium Chloride (Potassium Chloride ER), 1 TAB PO DAILY, (Reported) Pravastatin Sodium (Pravachol Tablet), 40 MG PO DAILY, (Reported) Ropinirole Hydrochloride (Ropinirole Hcl), 1 TAB PO DAILY, (Reported) Scheduled PRN Tramadol Hcl (Tramadol Hcl), 1 TAB PO TID PRN for PAIN, (Reported) Discharge Statement: "Patient was advised to return to the ER or call 911 if any headaches, dizziness, shortness of breath, chest pain, abdominal pain, bleeding, fevers, or worsening of medical condition. Patient was counseled about treatment plan, medications, possible side effects, patientverbalized understanding. All questions were answered to the best of my ability. This discharge took greater then 30 minutes in planning, reviewing documentation, counseling the patient, and discussing with other team members." Discharge Care Plan Instructions Take Rx medications, Notify MD of any issues, Keep list of meds w/ you, Do not drink ETOH/smoke, Call 911 in an emergency, F/U w/ PCP, Educate on timing of meds ASSESSMENT ASSESSMENT Assessment #Sepsis likely due to Pneumonia, gram +/- #Acute on chronic hypoxic respiratory failure #Acute Pulmonary congestion #Moderate acute pulmonary effusion #Acute on chronic CHF exacerbation with systolic/diastolic failure #CKD stage 3b on CHRISTIANE #Complicated acute UTI, possible cystitis #Acute Hematuria #Possible acute DVT, ruled out #Possible acute pulmonary embolus. Ruled out. #Chronic CAD #CKD stage 3b on CHRISTIANE #Acute Severe Anemia #Chronic DM type 2 with hyperglycemia #Acute Generalized weakness likely due to Hypoglycemia #Obesity Diet: Low carbohydrate and cardiac diet Goals of care discussed with the patient > 35 min. Discussed plan of care with Dr. Garcia Code status: Full code PCP:Casimiro Plan discussed with: Patient and spouse, the patient agrees with the discharge to SNF plan. Date of Service: Apr 04, 2025 Billing Provider: VISHAL GARCIA MD Common Visit Codes: 01814-SCL/OBS DISCH DAY >30min TEVIN GALEANA RESIDENT Apr 04, 2025 18:59 VISHAL GARCIA MD Apr 05, 2025 00:01
--- NOTE | 2025-04-04 21:26 | DVHPN2 ---
[facility] DOS: 04/04/2025 Patient seen and examined at bedside. Remains on supplemental oxygen Overnight events reviewed. Changes from previous H/P or p: No Changes Eyes: No Pain, No Vision change, No Conjunctivae inflammation, No Eyelid inflammation, No Other, No Redness ENT: No Ear pain, No Ear discharge, No Nose pain, No Nose discharge, No Nose congestion, No Mouth pain, No Mouth swelling, No Throat pain, No Throat swelling, No Other Cardiovascular: No Chest Pain, No Palpitations, No Orthopnea, No Paroxysmal Noc. Dyspnea, No Edema, No Lt Headedness, No Other Respiratory: Shortness of breath, Other Gastrointestinal: No Nausea, No Vomiting, No Abdominal Pain, No Diarrhea, No Constipation, No Melena, No Hematochezia, No Other Genitourinary: No Dysuria, No Frequency, No Incontinence, No Hematuria, No Retention, No Other Musculoskeletal: No other, No neck pain, No shoulder pain, No arm pain, No back pain, No hand pain, No leg pain, No foot pain Skin: No Rash, No Lesions, No Jaundice, No Bruising, No Other Objective Vitals Vital Signs Date Time Temp Pulse Resp B/P (MAP) Pulse Ox O2 Delivery O2 Flow Rate FiO2 04/04/25 13:00 98.2 76 18 123/63 (83) 97 98.2 04/04/25 09:56 Oxymizer 3 N/A Intake/Output Intake and Output 04/04/25 07:00 Intake Total 4026 ml Output Total 500 ml Balance 3526 ml Intake Oral 3726 ml IV Total 300 ml Output Urine Total 500 ml # Bowel Movements 7 Exam Gen.: Patient lying in bed in no apparent distress. On supplemental oxygen Head: Normocephalic, atraumatic. Eyes: EOMI/PERRLA. Ears: Normal hearing. Normal anatomy. Neck/trachea: Trachea midline, supple. Nose: Normal external anatomy. Mouth: Moist mucous membranes. Chest: Decreased air entry bilaterally. No wheezing or rhonchi. Cardiovascular: Positive S1, positive S2. Regular rate and rhythm. Abdomen: Positive bowel sounds in all 4 quadrants. Soft, non-tender, non- distended. : Deferred. Rectal: Deferred. Skin: Warm, dry. Intact. Extremities: 2+ radial pulses bilaterally. No lower extremity edema. Neuro: Awake, alert, oriented x3. No gross motor or sensory deficits. Cranial nerves II through XII intact. Gait not assessed. Laboratory Results Laboratory Tests 04/04/25 04:53 Chemistry Test 04/04/25 04:53 Calcium Level 8.0 mg/dL (8.7-10.4) L Urinalysis Test 03/29/25 04:30 Urine Color Dark yellow (Yellow) Urine Clarity Ex.turbid (Clear) Urine pH 5.5 (5.0-9.0) Urine Specific Dille 1.010 (1.001-1.035) Urine Protein 1+ (Negative) H Urine Ketones Negative (Negative) Urine Blood 2+ /uL (Negative) H Urine Nitrite Negative (Negative) Urine Bilirubin Negative (Negative) Urine Urobilinogen Normal mg/dL (Negative) Urine Leukocyte Esterase 3+ /uL (Negative) Urine RBC 96 /hpf (0 - 4) Urine WBC Clumps Present /hpf (None Seen) Urine Microscopic WBC 2737 /HPF (0-5) H Urine Squamous Epithelial Cells None seen /hpf (<5) Urine Bacteria None seen /hpf (None Seen) Urine Yeast (Budding) Loaded /hpf (None Seen) Urine Glucose Normal mg/dL (Normal) Microbiology Microbiology Date/Time Source Procedure Growth Status 03/29/25 12:28 Nose MRSA Screen - Final Complete 03/29/25 12:27 Voided Urine Urine Culture - Final Enterococcus faecium - VRE Complete 03/29/25 01:30 Blood Blood Culture - Final NO GROWTH AFTER 5 DAYS OF INCUBATION. Complete Assessment/Plan Assessment/Plan Impression: Acute hypoxic respiratory failure Dependence on supplemental oxygen Loculated pleural effusion Atelectasis Obesity, BMI 36.3 Events: Remains on supplemental oxygen On 3 LPM Oxymizer Improving O2 requirements - continue to taper as tolerated. BIPAP PRN due to hypercarbia. Limited chest U/S of right lung revealed right loculated pleural effusion. Chest x-ray on 04/01 shows improvement; right lung opacities persist, pulmonary vascular congestion. Patient is improving slowly. Continue diuresis with Lasix Maintain euvolemia Monitor renal function. Monitor electrolytes. Supplement as necessary. Continue bronchodilators Continue antibiotics Incentive spirometry On Eliquis PO BID Monitor renal function. Monitor electrolytes. Supplement as necessary. Potassium supplementation Monitor hemoglobin- currently 9.0 g/dL Transfuse if less than 7.0 g/dL. Physical therapy V/Q scan shows low probability for PE. Labs and imaging reviewed. Rest of plan as noted below. Plan: Continue supplemental oxygen Titrate to keep O2 sats between 88-94%. Patient is a chronic CO2 retainer. BiPAP PRN Chest CT revealed moderate right pleural effusion which appears to be loculated. Left lower lobe atelectasis/consolidation. Right middle lobe and right lower lobe compressive atelectasis. Findings c/w CHF. Continue bronchodilators. Continue antibiotics Incentive spirometry Diurese with Lasix Monitor renal function. Monitor electrolytes. Supplement as necessary. Monitor ins and outs. Recommend diet and lifestyle modifications for weight reduction Obesity complicates all care DVT prophylaxis. Prognosis: Poor given patient's multiple co-morbidities. Rest of plan per hospitalist and other consultants. Thank you, Dr. Howard, for allowing me to participate in this patient's care. Further recommendations will depend on the patient's clinical course. Please do not hesitate to contact me if you have any questions or concerns. This medical document was created using an electronic medical record system with [employer] dictation system. Although these documentations are being carefully reviewed, there may still be some phonetic and typographical changes. The errors are purely typographical, due to imperfection on the software program, and do not reflect any compromise in the patient's medical care. Plan discussed with: Patient, Other (LILI Israel) Visit Coding Pulmonary Billing Provider: JAN GONCALVES MD Date of Service if different f: Apr 04, 2025 Common Visit Codes: [id number] INP/OBS CARE(HIGH) JAN GONCALVES MD Apr 04, 2025 21:26
== END 2025-04-04 17:17 | DRG 871 ==
LOC: EDBD 01:13 → ER 01:14 → OVERFLOW 04:26 → TELE-WESTW 06:37
PROVIDERS: ADMIT Internal Medicine; ATTEND Internal Medicine
PROC: 5A09357 Assistance with Respiratory Ventilation, Less than 24 Consecutive Hours, Continuous Positive Airway Pressure (ICD-10-PCS; principal; 2025-03-29)
PROC: 5A09357 Assistance with Respiratory Ventilation, Less than 24 Consecutive Hours, Continuous Positive Airway Pressure (ICD-10-PCS; 2025-03-30)
PROC: 5A09357 Assistance with Respiratory Ventilation, Less than 24 Consecutive Hours, Continuous Positive Airway Pressure (ICD-10-PCS; 2025-04-01)
PROC: 5A09357 Assistance with Respiratory Ventilation, Less than 24 Consecutive Hours, Continuous Positive Airway Pressure (ICD-10-PCS; 2025-04-02)
PROC: 5A09357 Assistance with Respiratory Ventilation, Less than 24 Consecutive Hours, Continuous Positive Airway Pressure (ICD-10-PCS; 2025-04-03)
DX: A41.59 Other Gram-negative sepsis (principal); I50.43 Acute on chronic combined systolic (congestive) and diastolic (congestive) heart failure; J15.69 Pneumonia due to other Gram-negative bacteria; J15.9 Unspecified bacterial pneumonia; J96.21 Acute and chronic respiratory failure with hypoxia; I13.0 Hypertensive heart and chronic kidney disease with heart failure and stage 1 through stage 4 chronic kidney disease, or unspecified chronic kidney disease; N17.9 Acute kidney failure, unspecified; E87.3 Alkalosis; J44.0 Chronic obstructive pulmonary disease with (acute) lower respiratory infection; D50.9 Iron deficiency anemia, unspecified; I48.0 Paroxysmal atrial fibrillation; N18.32 Chronic kidney disease, stage 3b; I25.10 Atherosclerotic heart disease of native coronary artery without angina pectoris; Z20.822 Contact with and (suspected) exposure to COVID-19; E11.22 Type 2 diabetes mellitus with diabetic chronic kidney disease; E11.649 Type 2 diabetes mellitus with hypoglycemia without coma; I34.81 Nonrheumatic mitral (valve) annulus calcification; E66.9 Obesity, unspecified; I16.0 Hypertensive urgency; E11.65 Type 2 diabetes mellitus with hyperglycemia; N30.91 Cystitis, unspecified with hematuria; E11.42 Type 2 diabetes mellitus with diabetic polyneuropathy; F32.A Depression, unspecified; F41.9 Anxiety disorder, unspecified; K21.9 Gastro-esophageal reflux disease without esophagitis; Z79.899 Other long term (current) drug therapy; Z99.81 Dependence on supplemental oxygen; Z95.5 Presence of coronary angioplasty implant and graft; Z90.12 Acquired absence of left breast and nipple; Z83.3 Family history of diabetes mellitus; Z82.49 Family history of ischemic heart disease and other diseases of the circulatory system; Z79.01 Long term (current) use of anticoagulants; Z79.84 Long term (current) use of oral hypoglycemic drugs; Z68.36 Body mass index [BMI] 36.0-36.9, adult; Z85.3 Personal history of malignant neoplasm of breast; Z90.710 Acquired absence of both cervix and uterus
CPT/HCPCS: 36415; 36600; 71045; 71250; 78582; 80048; 80053; 80202; 81001; 82565; 82607; 82805; 82962; 83036; 83540; 83550; 83605; 83735; 83880; 84484; 85025; 85379; 85610; 86850; 86900; 86901; 87040; 87070; 87081; 87086; 87088; 87186; 87205; 93005; 93306; 93970; 94640; 94660; 96374; 97110; 97163; 97530; G0378; J0692; J1815; J2405; J3480